=== PATIENT | male | born 1935 | race Caucasian/White ===

== ENCOUNTER 2017-06-03 14:51 | Inpatient (IN) | payer MEDICARE, OTHER ==
[~2017-06-03] VITALS: Ht 172.7 cm; Wt 95.0 kg
[~2017-06-03 14:51] MED LIST: ACET650T85 PO; ALBU8.5H3 IH; ASPI-650 PO; ATOR10TA65; DOCU-144 PO; DONE10TA60 PO; FOLI-49 PO; MEMA10TA16 PO; METAM PO; MOM; NITR4.1S2 TL; RISP0.253 PO; TRAV4OP25 BOTH EYES
--- NOTE | 2017-06-03 15:07 | ERA ---
ER Documentation Chief Complaint Date/Time DATE: 06/03/17 TIME: 15:07 Chief Complaint HPI History is limited due to the patient's cognitive impairment 81-year-old male history of hypertension, Alzheimer's disease, dementia, ASHD, hyperlipidemia, unspecified psychosis and gastritis sent to the ED from [facility] for evaluation of coffee-ground emesis and hypotension. History is obtained primarily from transferring paramedics and custodial documentation. Patient with a one-day history of coffee ground emesis. When paramedics arrived blood pressure was in the 70s systolic. As per prior records patient was admitted at [facility] [place] in April 2017 for similar complaints. An EGD at that time revealed GERD, grade C distal esophageal ulcers and a large hiatal hernia. No reported hematochezia or melanotic stools. No chest pain, palpitations or shortness of breath. Afebrile. History is limited due to the patient's cognitive impairment and clinical condition. ROS Limited except as per history of present illness due to the patient's cognitive impairment and clinical condition. Medications Home Meds Reported Medications Travoprost* (Travatan*) 1 Drop Drops, 1 DROP BOTH EYES HS 07/29/13 Risperidone* (Risperidone*) 0.25 Mg Tablet, 0.25 MG PO HS 07/29/13 Atorvastatin Calcium (Atorvastatin Calcium) 10 Mg Tab, MG HS 07/29/13 Albuterol Sulfate* (Proair HFA*) 8.5 Gm Hfa.aer.ad, 8.5 GM IH Q4 Y 07/29/13 Psyllium* (Metamucil*) 1 Pkt Susp, 1 PKT PO BID 07/29/13 [Mom] No Conflict Check, 30 ML Y 07/29/13 Folic Acid* (Folic Acid*) 1 Mg Tablet, 1 MG PO 07/29/13 Donepezil* (Aricept* ODT) 10 Mg/Udtablet Tab.rapdis, 10 MG PO HS 07/29/13 Docusate Sodium* (Colace*) 100 Mg Capsule, 100 MG PO BID 07/29/13 Memantine* (Namenda*) 10 Mg Tablet, 10 MG PO BID 07/29/13 Nitroglycerin* (Nitrolingual* [place]) 4.1 Gm [place], 0.4 MG TL Y 07/29/13 Acetaminophen (Tylenol 8 Hour) 650 Mg Tablet.sa, 650 MG PO Y 11/07/11 Aspirin (Aspirin) 81 Mg Tablet, 81 MG PO DAILY 11/07/11 Allergies Allergies: Coded Allergies: No Known Allergies (Verified Allergy, Unknown, 06/04/17) PMhx/Soc Reviewed in chart. As per HPI. History of Surgery: Yes (LEFT EYE CATRACT ) Anesthesia Reaction: No Hx Neurological Disorder: Yes Hx Respiratory Disorders: Yes Hx Cardiac Disorders: Yes (HTN,CARDIAC DYSRHTHEMIA) Hx Psychiatric Problems: Yes (SCHIZOPHRENIA,DEMENTIA) Hx Miscellaneous Medical Probl: No Hx Alcohol Use: No Hx Substance Use: No Hx Tobacco Use: No FmHx Unknown Physical Exam Vitals Vital Signs Date Time Temp Pulse Resp B/P Pulse Ox O2 Delivery O2 Flow Rate FiO2 06/03/17 20:30 98 22 75/54 95 Nasal Cannula 2.0 06/03/17 20:00 94 23 167/140 100 Nasal Cannula 2.0 06/03/17 19:00 95 17 168/142 100 Nasal Cannula 2.0 06/03/17 18:51 87 22 100 Nasal Cannula 2.0 06/03/17 17:21 108 20 153/130 98 Nasal Cannula 2.0 06/03/17 15:29 Nasal Cannula 2 06/03/17 15:10 99.9 114 26 170/150 97 Physical Exam Const: Alert, responds to his name. Head: Atraumatic Eyes: Normal Conjunctiva ENT: Normal External Ears, Nose and Mouth. Mucous membranes dry Neck: Full range of motion. Nontender. Resp: Breath sounds equal and clear to auscultation bilaterally Cardio: Tachycardic, irregular rate and rhythm, no murmurs Abd: Soft, obese, distended, diffusely tender. No rebound Skin: No petechiae or rashes Back: No midline or flank tenderness Ext: No cyanosis, or edema Neur: Awake and alert. Oriented tpo person. No facial droop. Moves all extremities with 5/5 strength. Result Diagram: 06/06/170 06/06/17 0400 Results 24 hrs Laboratory Tests Test 06/03/17 15:12 06/03/17 17:10 06/03/17 18:35 06/03/17 19:00 White Blood Count 11.510^3/ul Red Blood Count 4.6310^6/ul Hemoglobin 12.7g/dl Hematocrit 38.0% Mean Corpuscular Volume 82.1fl Mean Corpuscular Hemoglobin 27.4pg Mean Corpuscular Hemoglobin Concent 33.4g/dl Red Cell Distribution Width 17.9% Platelet Count 47192^3/UL Mean Platelet Volume 11.4fl Neutrophils % % Segmented Neutrophils % (Manual) 61% Band Neutrophils % (Manual) 13% Lymphocytes % % Lymphocytes % (Manual) 10% Monocytes % % Monocytes % (Manual) 16% Eosinophils % % Basophils % % Nucleated Red Blood Cells % 1% Neutrophils # 10^3/ul Neutrophils # (Manual) 7.210^3/ul Band Neutrophils # 1.410^3/ul Absolute Lymphocytes (Manual) 1.110^3/ul Lymphocytes # 1.210^3/ul Monocytes # 1.810^3/ul Absolute Monocytes (Manual) 1.810^3/ul Eosinophils # 10^3/ul Basophils # 10^3/ul Nucleated Red Blood Cells # 10^3/ul Prothrombin Time 15.7Sec Prothrombin Time Ratio 1.2 INR International Normalized Ratio 1.24 Activated Partial Thromboplast Time 33.8Sec Sodium Level 138mmol/L 138mmol/L Potassium Level 2.8mmol/L 3.0mmol/L Chloride Level 101mmol/L 107mmol/L Carbon Dioxide Level 19mmol/L 15mmol/L Anion Gap 21 19 Blood Urea Nitrogen 94mg/dl 94mg/dl Creatinine 4.04mg/dl 4.03mg/dl Glucose Level 127mg/dl 103mg/dl Lactic Acid Level 2.8mmol/L 4.0mmol/L Calcium Level 8.9mg/dl 7.7mg/dl Magnesium Level 2.5mg/dl Total Bilirubin 0.4mg/dl Direct Bilirubin 0.00mg/dl Indirect Bilirubin 0.4mg/dl Aspartate Amino Transf (AST/SGOT) 35IU/L Alanine Aminotransferase (ALT/SGPT) 32IU/L Alkaline Phosphatase 83IU/L Troponin I 1.410ng/ml Total Protein 7.4g/dl Albumin 3.9g/dl Globulin 3.50g/dl Albumin/Globulin Ratio 1.11 Lipase 96U/L Urine Color CARLOS MANUEL Urine Clarity CLOUDY Urine pH 5.0 Urine Specific [place] 1.023 Urine Ketones NEGATIVEmg/dL Urine Nitrite NEGATIVEmg/dL Urine Bilirubin NEGATIVEmg/dL Urine Urobilinogen 1+mg/dL Urine Leukocyte Esterase NEGATIVELeu/ul Urine Microscopic RBC 0/HPF Urine Microscopic WBC 1/HPF Urine Hemoglobin NEGATIVEmg/dL Urine Glucose NEGATIVEmg/dL Urine Total Protein 1+mg/dl Current Medications Medications (Trade) Dose Ordered Sig/Radha Route PRN Reason Start Time Stop Time Status Last Admin Dose Admin Pantoprazole (Protonix Iv) 40 mg ONCE STAT IV 06/03/17 15:08 06/03/17 15:11 DC 06/03/17 15:52 Sodium Chloride 2950 ml 2,950 ml BOLUS OVER 2 HOURS STAT IV* 06/03/17 16:12 06/03/17 16:13 DC 06/03/17 17:20 Piperacillin Sod/ Tazobactam Sod 100 ml @ 200 mls/hr ONCE STAT IVPB 06/03/17 16:15 06/03/17 16:44 DC 06/03/17 17:20 Potassium Chloride (KCl 10 MEQ/50 ML SW) 50 ml @ 50 mls/hr ONCE ONCE IVPB 06/03/17 16:30 06/03/17 17:29 DC 06/03/17 17:44 Ondansetron HCl (Zofran Inj) 4 mg ONCE STAT IV 06/03/17 17:01 06/03/17 17:02 DC 06/03/17 17:20 EKG: TIME: 14: 57. Sinus tachycardia with frequent PVCs. LVH with repolarization abnormality. Left axis deviation. No acute ST segment elevation or depression. EP Interpretation: Abnormal EKG. IMAGING: PROCEDURE: Chest x-ray CLINICAL INDICATION: Shortness of breath TECHNIQUE: Chest single view COMPARISON: None FINDINGS: There is mild cardiomegaly and atherosclerotic aortic calcification. Mild chronic-appearing interstitial edema is noted. No confluent pneumonias identified. Costophrenic angles sharp. IMPRESSION: 1. Cardiomegaly with chronic-appearing central venous congestion. 2. Atherosclerotic aortic calcification RPTAT: HH .Johnson Joe MD, MD Date Time Electronically viewed and signed by .Johnson Joe MD, MD on 06/03/2017 15:35 .W/ PROCEDURE: CT ABDOMEN AND PELVIS WITHOUT CONTRAST CLINICAL INDICATION: 81 years of age, male . Vomiting and abdominal pain. TECHNIQUE: CT of the abdomen and pelvis was performed without intravenous contrast. Oral contrast was not administered prior to the examination. Coronal and sagittal reformatted images were obtained from the axial source images. Images were reviewed on a high-resolution PACS workstation. Dose information: Based on a 32 cm phantom, the estimated radiation dose ( CTDIvol mGy) for each series in this exam is 22. The estimated cumulative dose ( DLP mGy-cm) is 1448. One or more of the following dose reduction techniques were used: - Automated exposure control. - Adjustment of the mA and/or kV according to patient size. - Use of iterative reconstruction technique. COMPARISON: None available. FINDINGS: In the absence of intravenous contrast, the study constitutes a limited assessment of the solid organs, bowel and vessels. LUNG BASES: Bilateral dependent atelectasis. Multivessel coronary artery calcification and calcification of the aortic valve. ABDOMEN/PELVIS: Liver: Normal noncontrast appearance. Gallbladder: Gallbladder is not visualized and may be surgically absent. There is a 0.4 cm calculus in the region of the cystic duct in keeping with a stump calculus. Bile ducts: No intrahepatic or extrahepatic biliary duct dilatation. Spleen: Calcified granulomas. Negative for splenomegaly. Pancreas: Normal noncontrast appearance. Adrenal glands: Normal noncontrast appearance. Kidneys and ureters: Right renal parenchymal cyst. Kidneys are somewhat small. Negative for hydronephrosis. Aorta and IVC: Atherosclerosis aorta and iliac vessels. There is an infrarenal abdominal aortic aneurysm measuring up to 3 cm. Lymph nodes: Normal noncontrast appearance. Gastrointestinal tract: Colon is distended with liquid stool. Cecum measures 7.1 cm and distal descending colon measures 6.6 cm. The wall of the colon is thin. There is suspected pneumatosis in the wall of the ascending colon (3/105) . There is sigmoid colon diverticulosis without diverticulitis concerning for ischemia. Small bowel loops and stomach are decompressed. There is fluid distension of the distal esophagus. Appendix: Normal Bladder: Normal noncontrast appearance. Pelvic Organs: Prostate gland and seminal vesicles are unremarkable. Peritoneal cavity: No free fluid or free intraperitoneal air. Abdominal wall: Normal noncontrast appearance. BONES: Musculoskeletal: Osteopenia. 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 Partial collapse L1 vertebra appears chronic. No suspicious bone lesions. IMPRESSION: 1. Colon is distended with liquid stool and there is suspected pneumatosis of the ascending colon. This is concerning for ischemic colitis. Recommend correlation with serum lactate. 2. Stomach and small bowel are decompressed. Negative for evidence of mechanical bowel obstruction. Fluid distension of the esophagus may be due to vomiting or reflux. 3. Gallbladder is not visualized and is presumed surgically absent. There is a small calculus in the cystic duct stump without inflammation. 4. Extensive atherosclerosis with multivessel coronary artery calcification. Infrarenal abdominal aortic aneurysm measures 3 cm. Critical results concern for ischemic colitis were discussed with Dr. Chua by Dr. Florecita Hamlin on June 03, 2017 at 7:10 PM. RPTAT: HCTS Physician Corin Date Time Electronically viewed and signed by Physician Corin on 06/03/2017 19: 13 CS/ Procedures/MDM DOCUMENTS REVIEWED: ED nurse, custodial records, prior hospital records including echocardiogram 07/05 which shows moderate aortic stenosis with normal ejection fraction. MEDICAL DECISION MAKIN-year-old male history of hypertension, Alzheimer's disease, dementia, ASHD, hyperlipidemia, unspecified psychosis and gastritis sent to the ED from [facility] for evaluation of coffee- ground emesis and hypotension. Patient with multiple criteria for systemic inflammatory response syndrome and septic shock due to intra-abdominal source. CT reveals findings consistent with ischemic colitis. A decision regarding emergent surgical intervention versus anticoagulation is deferred to the consulting surgeon Dr. Rogers. Elevated troponin without acute ischemic EKG changes consistent with NSTEMI although spurious elevation due to acute renal failure is also considered. Patient's primary care physician, Dr. Dallin Smith, has inquired regarding transfer however the patient is in critical condition and not stable for transfer at this time. Patient's infectious, gastrointestinal and cardiovascular symptoms have not stabilized and the patient is at risk of rapid decompensation. Admit to ICU for surgical evaluation, careful hydration, antibiotic therapy, infectious source control , further evaluation and management. Severe Sepsis criteria: Infectious source: Intra-abdominal End organ damage indicated by: Lactate > 2.0 mmol/L Warning Analyst > 2.0 Sepsis Management: Time of recognition of severe sepsis/septic shock: 16:00 Within 3 hours of recognition: Blood cultures x 2 before broad-spectrum antibiotics: Yes 30 ml/kg NS bolus Completed Initial lactate 2.9 Repeat lactate 4.0 Septic Shock Assessment: Any lactic acid > 4.0 Yes Persistent hypotension (SBP < 90 or 40 mmHg drop, MAP < 65) despite 30 mL/kg IV fluid bolus: No Critical Care Time: 40 minutes Treatments/Evaluations: Close monitoring and treatment of unstable vital signs, cardiorespiratory, and neurologic status, while maintaining tight balance of fluid, respiratory, and cardiac interventions. This includes the administration of emergency fluid management while maintaining close respiratory support as well as the provision of immediate and broad-spectrum antibiotic therapy, while performing a simultaneous assessment for possible sources in order to direct targeted therapy. This time includes discussing the case with the patient and the patient's family. This time also includes the consideration for invasive and chemical support to prevent cardiopulmonary collapse. This time does not include all procedures stated elsewhere in this record. This time also includes reviewing old records, labs and radiological studies. This time includes examining and re-examining the patient. Additionally, this time also includes arranging care with admitting and consulting physicians. CALLS/CONSULTS: Time 19:18 Dr. Seo, will admit to ICU admission. CALLS/CONSULTS: Time 19:20 Dr. Zhang. Evaluating patient for emergent surgical intervention. PATIENT CARE TRANSITIONED: Time: 19:20, Dr. Seo. Departure Diagnosis: Primary Impression: Ischemic colitis Additional Impressions: Septic shock NSTEMI (non-ST elevated myocardial infarction) Acute renal failure Qualified Code: N17.9 - Acute renal failure, unspecified acute renal failure type Condition: Critical LOUIE CHUA MD Jun 03, 2017 15:07 LOUIE CHUA MD Jun 03, 2017 15:07 LOUIE CHUA MD Jun 03, 2017 15:07 LOUIE CHUA MD Jun 03, 2017 15:07
[2017-06-03] MEDS ORDERED: PANTOPRAZOLE 40 MG INJ IV STA (15:08)
[2017-06-03 15:30] LABS: ABNORMAL IP MESSAGE 1; HEMOGLOBIN 12.7 g/dl (14.0-18.0); MEAN CORPUSCULAR HEMOGLOBIN 27.4 pg (29.0-33.0); MEAN CORPUSCULAR HGB CONC 33.4 g/dl (32.0-37.0); MEAN CORPUSCULAR VOLUME 82.1 fl (82.0-101.0); MEAN PLATELET VOLUME 11.4 fl (7.4-10.4); PLATELET COUNT 223 10^3/UL (140-415); POSITIVE DIFF @See below; RED BLOOD COUNT 4.63 10^6/ul (4.70-6.10); RED CELL DISTRIBUTION WIDTH 17.9 % (11.5-14.5); WHITE BLOOD COUNT 11.5 10^3/ul (4.8-10.8)
--- NOTE | 2017-06-03 15:36 | RADRPT ---
PROCEDURE: Chest x-ray CLINICAL INDICATION: Shortness of breath TECHNIQUE: Chest single view COMPARISON: None FINDINGS: There is mild cardiomegaly and atherosclerotic aortic calcification. Mild chronic-appearing intersti tial edema is noted. No confluent pneumonias identified. Costophrenic angles sharp. IMPRESSION: 1. Cardiomegaly with chronic-appearing central venous congestion. 2. Atherosclerotic aortic calcification RPTAT: HH .Johnson Joe MD, MD Date Time Electronically viewed and signed by .Johnson Joe MD, MD on 06/03/2017 15:35 .W/
[2017-06-03 15:46] LABS: INR 1.24; PROTIME 15.7 Sec (12.2-14.2); PT RATIO 1.2
[2017-06-03 15:47] LABS: PARTIAL THROMBOPLASTIN TIME 33.8 Sec (25.0-35.0)
[2017-06-03 15:53] LABS: ALBUMIN 3.9 g/dl (3.3-4.9); ALBUMIN/GLOBULIN RATIO 1.11; BILIRUBIN,INDIRECT 0.4 mg/dl (0-1.1); BILIRUBIN,TOTAL 0.4 mg/dl (0.2-1.3); BURR CELLS 1+; CALCIUM 8.9 mg/dl (8.4-10.2); CREATININE 4.04 mg/dl (0.61-1.24); ERYTHROBLAST% (NRBC) (M) 1 % (0-0); LYMPHOCYTES # 1.2 10^3/ul (0.8-2.9); MAGNESIUM 2.5 mg/dl (1.7-2.5); MONOCYTE # 1.8 10^3/ul (0.3-0.9); MONOCYTES % (M) 16 % (0-11); TOTAL PROTEIN 7.4 g/dl (6.1-8.1)
[2017-06-03 16:06] LABS: POTASSIUM 2.8 mmol/L (3.5-5.1)
[2017-06-03 16:12] LABS: TROPONIN-I 1.41 ng/ml (0.00-0.12)
[2017-06-03] MEDS ORDERED: SODIUM CHLORIDE 0.9% 1L BAG IV* STA (16:12)
[2017-06-03] MEDS ORDERED: PIPER-TAZO 3.375 GM IV (PMX) 100 ML IVPB STA (16:15)
[2017-06-03] MEDS ORDERED: POTASSIUM CHLORIDE 50 ML IVPB ONE (16:30)
[2017-06-03] MEDS ORDERED: ONDANSETRON 4 MG INJ IV STA (17:01)
[2017-06-03 17:35] LABS: ADD UMIC YES; UR ASCORBIC ACID 40 mg/dL (NEGATIVE); UR BILIRUBIN (Dip) NEGATIVE (NEGATIVE); UR BLOOD (Dip) NEGATIVE (NEGATIVE); UR CLARITY CLOUDY (CLEAR); UR COLOR AMBER (YELLOW); UR GLUCOSE (Dip) NEGATIVE (NEGATIVE); UR KETONES (Dip) NEGATIVE (NEGATIVE); UR LEUKOCYTE ESTERASE (Dip) NEGATIVE Leu/ul (NEGATIVE); UR NITRITE (Dip) NEGATIVE (NEGATIVE); UR RBC 0 /HPF (0-5); UR SPECIFIC GRAVITY (Dip) 1.023 (1.003-1.030); UR TOTAL PROTEIN (Dip) 1+ mg/dl (NEGATIVE); UR UROBILINOGEN (Dip) 1+ mg/dL (NEGATIVE)
--- NOTE | 2017-06-03 19:14 | RADRPT ---
PROCEDURE: CT ABDOMEN AND PELVIS WITHOUT CONTRAST CLINICAL INDICATION: 81 years of age, male . Vomiting and abdominal pain. TECHNIQUE: CT of the abdomen and pelvis was performed without intravenous contrast. Oral contrast wa s not administered prior to the examination. Coronal and sagittal reformatted images were obtained from the axial source images. Images were revi ewed on a high-resolution PACS workstation. Dose information: Based on a 32 cm phantom, the estimated radiation dose (CTDIvol mGy) for each seri es in this exam is 22. The estimated cumulative dose (DLP mGy-cm) is 1448. One or more of the following dose reduction techniques were used: - Automated exposure control. - Adjustment of the mA and/or kV according to patient size. - Use of iterative reconstruction technique. COMPARISON: None available. FINDINGS: In the absence of intravenous contrast, the study constitutes a limited assessment of the solid orga ns, bowel and vessels. LUNG BASES: Bilateral dependent atelectasis. Multivessel coronary artery calcification and calcifica tion of the aortic valve. ABDOMEN/PELVIS: Liver: Normal noncontrast appearance. Gallbladder: Gallbladder is not visualized and may be surgically absent. There is a 0.4 cm calculus in the region of the cystic duct in keeping with a stump calculus. Bile ducts: No intrahepatic or extrahepatic biliary duct dilatation. Spleen: Calcified granulomas. Negative for splenomegaly. Pancreas: Normal noncontrast appearance. Adrenal glands: Normal noncontrast appearance. Kidneys and ureters: Right renal parenchymal cyst. Kidneys are somewhat small. Negative for hydronep hrosis. Aorta and IVC: Atherosclerosis aorta and iliac vessels. There is an infrarenal abdominal aortic aneu rysm measuring up to 3 cm. Lymph nodes: Normal noncontrast appearance. Gastrointestinal tract: Colon is distended with liquid stool. Cecum measures 7.1 cm and distal desce nding colon measures 6.6 cm. The wall of the colon is thin. There is suspected pneumatosis in the wa ll of the ascending colon (3/105). There is sigmoid colon diverticulosis without diverticulitis conc erning for ischemia. Small bowel loops and stomach are decompressed. There is fluid distension of th e distal esophagus. Appendix: Normal Bladder: Normal noncontrast appearance. Pelvic Organs: Prostate gland and seminal vesicles are unremarkable. Peritoneal cavity: No free fluid or free intraperitoneal air. Abdominal wall: Normal noncontrast appearance. BONES: Musculoskeletal: Osteopenia. 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 Partial collapse L1 vertebra ap pears chronic. No suspicious bone lesions. IMPRESSION: 1. Colon is distended with liquid stool and there is suspected pneumatosis of the ascending colon. This is concerning for ischemic colitis. Recommend correlation with serum lactate. 2. Stomach and small bowel are decompressed. Negative for evidence of mechanical bowel obstruction. Fluid distension of the esophagus may be due to vomiting or reflux. 3. Gallbladder is not visualized and is presumed surgically absent. There is a small calculus in the cystic duct stump without inflammation. 4. Extensive atherosclerosis with multivessel coronary artery calcification. Infrarenal abdominal ao rtic aneurysm measures 3 cm. Critical results concern for ischemic colitis were discussed with Dr. Almaraz by Dr. Florecita driscoll June 03, 2017 at 7:10 PM. RPTAT: HCTS Physician Corin Date Time Electronically viewed and signed by Physician Corin on 06/03/2017 19:13 CS/
[2017-06-03 19:46] LABS: CALCIUM 7.7 mg/dl (8.4-10.2); CREATININE 4.03 mg/dl (0.61-1.24)
[2017-06-03] MEDS ORDERED: BUPIVACAINE 0.5%/EPI (SDV) 30 ML INJ ONE (20:43)
[2017-06-03] MEDS ORDERED: LIDOCAINE 1% (MPF) 30 ML INJ ONE (20:43)
[2017-06-03] MEDS ORDERED: FENTAnyl 50 MCG/ML VIAL ONE (20:45)
[2017-06-03] MEDS ORDERED: ROCURONIUM 50 MG INJ ONE (20:45)
[2017-06-03] MEDS ORDERED: PROPOFOL 0 ML ONE (20:45)
[2017-06-03] MEDS ORDERED: SUCCINYLCHOLINE CHLORIDE 100 MG/5 ML SYG IV ONE (20:45)
[2017-06-03] MEDS ORDERED: SOD CHLORIDE 0.9% 2,950 ML IV ONE (21:00)
[2017-06-03] MEDS ORDERED: NORepinephrine 8MG/250 ML (PMX 250 ML IV SCH ×2 (21:00→23:00)
--- NOTE | 2017-06-03 21:10 | CONS ---
Date/Time of Note Date/Time of Note DATE: 06/03/17 TIME: 20:49 Assessment/Plan Assessment/Plan Chief Complaint/Hosp Course 1. Lactic acidosis, bandemia, CT with ischemic colitis, with Sepsis. During the course of this dictation patient's blood pressure has dropped to 60s systolic and is in Shock currently. Patient has a conservator however they are not unreachable even through the emergency after hour line. I have discussed patient's care with emergency room physician and patient's outpatient medical doctor, Dallin Smith. -IV antibiotics -Aggressive IV fluids -Anticoagulation -We will need OR for exploration and resection however patient is currently unstable and per my discussions with anesthesia we do not believe he will be able to tolerate anesthetic > will need ICU admission and aggressive resuscitation 2. Significant atherosclerosis and coronary artery disease -Patient high risk for any surgery -Cardiac optimization 3. Acute renal failure secondary to above -Aggressive and judicious fluid management -Renal consult -Try to avoid nephrotoxic agents if possible 4. Coffee-ground emesis with possible upper GI bleed -Close monitoring and transfuse as needed -PPI 5. Anemia with possible blood loss -As above 6. Dysrhythmia history -Optimize lites -Rate control -Anticoagulation 7. Acute hypokalemia -Correct aggressively 8. Obesity with BMI 32 9. Alzheimer's dementia, schizophrenia (paranoid) -Medical and psychiatric optimization -Patient has a conservator but no family. Thank you very much for consulting me in this patient's care, Problems: Consultation Date/Type/Reason Admit Date/Time Date of Consultation: Jun 03, 2017 Type of Consultation: General surgical Reason for Consultation Ischemic colitis Bandemia Lactic acidosis BMI 32 Referring Provider: LOUIE CHUA MD Hx of Present Illness Mark He is an 81yo male with significant comorbidities who has been in and out of hospitals for the past few weeks with same issues was sent to the ED from [facility] for evaluation of coffee-ground emesis and hypotension. History is obtained primarily from transferring staff and chart. These symptoms have been going on as of stated for a few weeks however recurred for the past day. When paramedics arrived blood pressure was in the 70s systolic. As per prior records patient was admitted at [facility] [place] in April 2017 for similar complaints. An EGD at that time revealed GERD, grade C distal esophageal ulcers and a large hiatal hernia. There is no current fevers or chills. No cough. No seizure. No noted blood per mouth or rectum. Patient denies pain. No acute neurologic changes however patient confused. No skin color urine color change. No eyeball color change. Emergency room he is found to be tachycardic with bandemia lactic acidosis that is worsening. He is in renal failure. CT scan shows ischemic colitis. Surgical consult is obtained further evaluation and treatment. 12 point review of system are negative except as per history of present illness. Past Medical History Cataract HTN Cardiac dysrhythmia Significant atherosclerosis Schizophrenia Significant dementia Obesity with BMI 32 Ischemic colitis, acute Lactic acidosis, acute Bandemia, acute Small calculus in the cystic duct stump without inflammation. Coronary artery calcification Infrarenal abdominal aortic aneurysm, 3 cm. Alzheimer's disease ASHD Hyperlipidemia Gastritis Coffee-ground emesis GERD Grade C distal esophageal ulcers Large hiatal hernia Anemia Hypokalemia, acute Acute renal failure Past Surgical History Lap christen Family History Significant Family History: no pertinent family hx Social History No current alcohol use or tobacco Smoking Status: Unknown if ever smoked Exam/Review of Systems Vital Signs Vitals Vital Signs Date Time Temp Pulse Resp B/P Pulse Ox O2 Delivery O2 Flow Rate FiO2 06/03/17 18:51 87 22 100 Nasal Cannula 2.0 06/03/17 17:21 153/130 06/03/17 15:10 99.9 Exam Constitutional: obese, other (Awake), No oriented (To location and situation date. Only notices name) Psych: confusion, nl mood/affect Head: atraumatic, normocephalic Eyes: PERRL, nl conjunctiva, No icteric ENMT: nl external ears & nose, No mucosa pink and moist Neck: jvd, non-tender, supple Respiratory: normal air movement, No congested cough, No labored breathing Cardiovascular: edema, No regular rate and rhythm Gastrointestinal: distended, soft, tender, No rebound or guarding Musculoskeletal: No joint tenderness, No nl extremities to inspection, No nl gait and stance Extremities: No calf tenderness, No cyanosis Neurological: No nl mental status, No nl strength Skin: No diaphoresis, No rash or lesions Lymph: nl lymph nodes, nontender Results Result Diagram: 06/03/17 1512 06/03/17 1835 Results 24 hrs Laboratory Tests Test 06/03/17 15:12 06/03/17 17:10 06/03/17 18:35 06/03/17 19:00 White Blood Count 11.5 H Red Blood Count 4.63 L Hemoglobin 12.7 L Hematocrit 38.0 L Mean Corpuscular Volume 82.1 Mean Corpuscular Hemoglobin 27.4 L Mean Corpuscular Hemoglobin Concent 33.4 Red Cell Distribution Width 17.9 H Platelet Count 223 Mean Platelet Volume 11.4 H Neutrophils % Segmented Neutrophils % (Manual) 61 Band Neutrophils % (Manual) 13 H Lymphocytes % Lymphocytes % (Manual) 10 L Monocytes % Monocytes % (Manual) 16 H Eosinophils % Basophils % Nucleated Red Blood Cells % 1 H Neutrophils # Neutrophils # (Manual) 7.2 Band Neutrophils # 1.4 H Absolute Lymphocytes (Manual) 1.1 Lymphocytes # 1.2 Monocytes # 1.8 H Absolute Monocytes (Manual) 1.8 H Eosinophils # Basophils # Nucleated Red Blood Cells # Prothrombin Time 15.7 H Prothrombin Time Ratio 1.2 INR International Normalized Ratio 1.24 Activated Partial Thromboplast Time 33.8 Sodium Level 138 138 Potassium Level 2.8 *L 3.0 L Chloride Level 101 107 Carbon Dioxide Level 19 L 15 L Anion Gap 21 H 19 H Blood Urea Nitrogen 94 H 94 H Creatinine 4.04 H 4.03 H Glucose Level 127 103 Lactic Acid Level 2.8 *H 4.0 *H Calcium Level 8.9 7.7 L Magnesium Level 2.5 Total Bilirubin 0.4 Direct Bilirubin 0.00 Indirect Bilirubin 0.4 Aspartate Amino Transf (AST/SGOT) 35 Alanine Aminotransferase (ALT/SGPT) 32 Alkaline Phosphatase 83 Troponin I 1.410 *H Total Protein 7.4 Albumin 3.9 Globulin 3.50 H Albumin/Globulin Ratio 1.11 Lipase 96 Urine Color CARLOS MANUEL Urine Clarity CLOUDY A Urine pH 5.0 Urine Specific [place] 1.023 Urine Ketones NEGATIVE Urine Nitrite NEGATIVE Urine Bilirubin NEGATIVE Urine Urobilinogen 1+ H Urine Leukocyte Esterase NEGATIVE Urine Microscopic RBC 0 Urine Microscopic WBC 1 Urine Hemoglobin NEGATIVE Urine Glucose NEGATIVE Urine Total Protein 1+ H Imaging Free Text/Dictation CT abdomen pelvis: 1. Colon is distended with liquid stool and there is suspected pneumatosis of the ascending colon. This is concerning for ischemic colitis. Recommend correlation with serum lactate. 2. Stomach and small bowel are decompressed. Negative for evidence of mechanical bowel obstruction. Fluid distension of the esophagus may be due to vomiting or reflux. 3. Gallbladder is not visualized and is presumed surgically absent. There is a small calculus in the cystic duct stump without inflammation. 4. Extensive atherosclerosis with multivessel coronary artery calcification. Infrarenal abdominal aortic aneurysm measures 3 cm. DAVY MARTINES MD Jun 03, 2017 21:00 vomiting or reflux. 3. Gallbladder is not visualized and is presumed surgically absent. There is a small calculus in the cystic duct stump without inflammation. 4. Extensive atherosclerosis with multivessel coronary artery calcification. Infrarenal abdominal aortic aneurysm measures 3 cm. DAVY MARTINES MD Jun 03, 2017 21:00
--- NOTE | 2017-06-03 22:13 | OPR ---
Date/Time of Note Date/Time of Note DATE: 06/03/17 TIME: 22:06 Operative Report Procedure Date: Jun 03, 2017 Preoperative Diagnosis 1. Sepsis with shock, systolic of 60s 2. Possible ischemic colitis 3. Lactic acidosis Postoperative Diagnosis 1. Sepsis with shock, systolic of 60s 2. Possible ischemic colitis 3. Lactic acidosis Operation/Procedure Performed 1. Right internal jugular central line insertion 2. Ultrasound guidance 3. Ultrasound interpretation 4. Local [place], [id number] Surgeon Davy Martines MD Manifest Clerk None Anesthesia Type: other (Local) Estimated Blood Loss: none Transfusion none Specimen None Grafts/Implants Central line Complications none Pt Condition Post Procedure: critical Disposition: other (ER) Indications 81-year-old male with significant comorbidities who is in septic shock with bandemia, lactic acidosis, possible ischemic bowel, with systolic in the 60s. Patient was going to go for emergency abdominal exploration however he is too unstable to proceed. ER physician and myself and anesthesia have elected to place a central line to give him fluids more aggressively and be able to control him. He would need optimization prior to reconsideration for surgery. I have attempted to reach out to the patient's conservator however they are not available and I have left a message for them. I tried to contact her emergency line that the place on their answering service and nobody picks up the emergency line. I tried to contact him multiple times. Patient is currently unstable and in shock in an emergent situation. Procedure Description Ultrasound findings: Internal jugular was anterior and lateral to the carotid and compressible. Wire and needle were placed under ultrasound guidance into the IJ and confirmed in 2 planes. Procedure: Patient was placed in Trendelenburg on his bed right neck was prepped and draped sterilely timeout was performed. Using ultrasound the right neck was investigated with the IJ anterolateral to the carotid. Local anesthetic was injected at the site. Using 18-gauge needle the IJ was accessed and a wire was placed which was confirmed in 2 planes. Using Seldinger technique the line was placed to [address] in [address]. All 3 ports easily draw back dark nonpulsatile blood and flush easily. Dressing was applied. DAVY MARTINES MD Jun 03, 2017 22:13
[2017-06-03] MEDS ORDERED: ONDANSETRON 4 MG INJ IV PRN (23:00)
[2017-06-03] MEDS ORDERED: HYDROmorphONE 0.5 MG/0.5 ML SYG IV PRN (23:00)
[2017-06-03] MEDS ORDERED: morphine 4 MG/ML VIAL IV PRN (23:00)
[2017-06-03 23:20] VITALS: PULSE 122
[2017-06-03 23:30] VITALS: BP 84/56; PULSE 138; RESP 27
[2017-06-03] MEDS: DEXTROSE 5%-0.45% NACL 1,000 ML IV SCH (23:31)
[2017-06-03] MEDS: PIPER-TAZO 2.25 GM (PMX) 50 ML IVPB SCH (23:33)
[2017-06-03 23:45] VITALS: BP 79/69; PULSE 127; RESP 24
[2017-06-04] VITALS (91 sets, daily range): BP systolic 63–166; BP diastolic 34–135; PULSE 78–140; RESP 15–43; Ht 172.7 cm; Wt 95.0 kg
[2017-06-04] MEDS ORDERED: PHENYLephrine 20MG IN 250 ML 250 ML ONE (01:20)
[2017-06-04] MEDS ORDERED: PHENYLephrine 40 MG in DEXTROSE 5% 496 ML IV SCH (01:30)
[2017-06-04 02:33] LABS: CK-MB 12.9 ng/ml (0.0-2.4)
[2017-06-04 02:36] LABS: TROPONIN-I 0.867 ng/ml (0.00-0.12)
[2017-06-04] MEDS: PIPER-TAZO 2.25 GM (PMX) 50 ML IVPB SCH ×3 (05:10→22:25)
[2017-06-04 05:46] LABS: ABNORMAL IP MESSAGE 1; HEMATOCRIT 34.3 % (42.0-52.0); LYMPHOCYTES # 0.8 10^3/ul (0.8-2.9); LYMPHOCYTES % 6.4 % (15.0-51.0); MEAN CORPUSCULAR HEMOGLOBIN 26.7 pg (29.0-33.0); MEAN CORPUSCULAR HGB CONC 32.1 g/dl (32.0-37.0); MEAN CORPUSCULAR VOLUME 83.3 fl (82.0-101.0); MONOCYTE # 2.2 10^3/ul (0.3-0.9); MONOCYTES % 18.1 % (0.0-11.0); NEUTROPHIL # 8.9 10^3/ul (1.6-7.5); NEUTROPHILS % 75.2 % (39.0-77.0); PLATELET COUNT 162 10^3/UL (140-415); POSITIVE DIFF @See below; RED BLOOD COUNT 4.12 10^6/ul (4.70-6.10); RED CELL DISTRIBUTION WIDTH 18.6 % (11.5-14.5); WHITE BLOOD COUNT 11.9 10^3/ul (4.8-10.8)
[2017-06-04] MEDS ORDERED: HEPARIN 1000 UNITS/ML 10 ML INJ IV PRN (06:00)
[2017-06-04] MEDS ORDERED: PANTOPRAZOLE 40 MG INJ IV SCH (06:00)
[2017-06-04 06:05] LABS: ALBUMIN 2.8 g/dl (3.3-4.9); ALBUMIN/GLOBULIN RATIO 0.82; BILIRUBIN,INDIRECT 0.4 mg/dl (0-1.1); BILIRUBIN,TOTAL 0.4 mg/dl (0.2-1.3); CALCIUM 7.4 mg/dl (8.4-10.2); CREATININE 3.19 mg/dl (0.61-1.24); TOTAL PROTEIN 6.2 g/dl (6.1-8.1)
--- NOTE | 2017-06-04 06:05 | HP ---
Date/Time of Note Date/Time of Note DATE: 06/03/17 TIME: 23:30 Assessment/Plan VTE Prophylaxis VTE Prophylaxis Intervention: heparin Lines/Catheters IV [facility]from [facility] Central Line Central line still needed: Yes Urinary Cath still in place: Yes Reason Cath still needed: terminal illness/intractable pain Assessment/Plan Assessment/Plan 1. Septic shock, likely secondary to ischemic colitis -Continue pressure support and IV fluid -Broad-spectrum antibiotic -Follow-up culture results -Treat ischemic colitis with heparin 2. Ischemic colitis -Patient was unstable to go to the OR while he was in the ER. Plan for now is to treat with heparin drip 3. Presumed acute on CKD -Continue treatment of shock -Obtain renal ultrasound and place a nephrology consult -will order urine electrolytes 4. Positive troponin, (trending down) -Trend troponin -2D echo -Cardiology consult -Patient already on heparin drip for ischemic colitis 5. A-fib with RVR -Once stabilizing blood pressure, will start treatment -Continue heparin -2D echo and cardiology consult 6. Severe Alzheimer's dementia -Supportive care 7. Hypokalemia -Replete HPI/ROS Admit Date/Time Admit Date/Time Hx of Present Illness This is an 81-year-old male with a history of Alzheimer's dementia, CAD, hypertension, gastritis, psychosis and dyslipidemia who was sent from a convalescent home for attention and coffee-ground emesis. Patient is not able to give history because he is not fully oriented. For every question that asked , mostly he responds by saying "I am alright". Reportedly he was hospitalized at an outside hospital last month for coffee-ground emesis. At that time EGD showed distal esophageal ulcer, large hiatal hernia and GERD. When patient presents to the ER, initially he was hypotensive with blood pressure in the 170s. During his ER stay however he became more and more hypotensive with a systolic blood pressure as low as 60 despite several IV fluid boluses. There was a plan for the patient to be taken to the OR but given instability, a decision is made to admit the patient to ICU and treat his septic shock and treat ischemic colitis for now with heparin. Admission lab shows WBC of 11.5, potassium 2.8, BUN 94, creatinine 4, bicarb 19 , lactic acid as high as 4, initial troponin 1.4, which has been trending down since. ROS Psychological: confusion, nl mood/affect PMH/Family/Social Social History Smoking Status: Unknown if ever smoked Exam/Review of Systems Vital Signs Vitals Vital Signs Date Time Temp Pulse Resp B/P Pulse Ox O2 Delivery O2 Flow Rate FiO2 06/04/17 04:00 106 06/04/17 03:00 29 92/65 99 Room Air 06/03/17 23:30 99.0 06/03/17 22:25 2.0 Intake and Output 06/03/17 06/03/17 06/04/17 15:00 23:00 07:00 Intake Total 1184.375 ml Output Total 1325 ml Balance -140.625 ml Exam Constitutional: other (No acute distress. He is not oriented.) Psych: confusion Respiratory: clear to auscultation, normal air movement Cardiovascular: irregular rhythm Gastrointestinal: other (There is mild distention. He denied pain however I noted some mild grimaces on deep palpation) Extremities: normal pulses Labs Result Diagram: 06/03/17 1512 06/03/17 6025 Medications Medications Current Medications Dextrose/Sodium Chloride (D5-1/2ns) 1,000 ml @ 125 mls/hr Q8H IV Last administered on 06/03/17 23:31; Admin Dose 125 MLS/HR; Start 06/03/17 at 22: 43 Ondansetron HCl (Zofran Inj) 4 mg Q6H PRN IV NAUSEA AND/OR VOMITING; Start at 23:00 Morphine Sulfate (morphine) 3 mg Q4H PRN IV PAIN LEVEL 7-10; Start 06/03/17 at 23:00 Hydromorphone HCl (Dilaudid) 0.5 mg Q4H PRN IV PAIN LEVEL 7-10; Start at 23:00 Pantoprazole 40 mg 40 mg DAILY@06 IV Last administered on 06/04/17 05:10; Admin Dose 40 MG; Start 06/04/17 at 06:00 Piperacillin Sod/ Tazobactam Sod 50 ml @ 200 mls/hr Q8 IVPB Last administered on 06/04/17 05:10; Admin Dose 200 MLS/HR; Start 06/03/17 at 23:59 Norepinephrine 16 mg/Dextrose 500 ml @ 1.87 mls/hr TITRATE IV ; Start at 03:00 Phenylephrine HCl/ Dextrose (Jc-Syneph/D5W) 500 ml @ 75 mls/hr TITRATE IV Last administered on 06/04/17t 02:33; Admin Dose 37.5 MLS/HR; Start 06/04/17 at 01:30 SHENA JACOB MD Jun 04, 2017 05:51
[2017-06-04 06:26] LABS: CK-MB 15.6 ng/ml (0.0-2.4); TROPONIN-I 0.879 ng/ml (0.00-0.12)
[2017-06-04] MEDS ORDERED: POTASSIUM CHLORIDE 250 ML IVPB SCH (06:30)
[2017-06-04] MEDS ORDERED: POTASSIUM CHLORIDE 50 ML IVPB SCH ×2 (06:30→20:00)
[2017-06-04] MEDS: HEPARIN 25000 UNITS/D5W 250 ML IV SCH (06:37)
[2017-06-04] MEDS ORDERED: POTASSIUM CHLORIDE 0 ML ONE (06:39)
[2017-06-04] MEDS: DEXTROSE 5%-0.45% NACL 1,000 ML IV SCH ×3 (06:57→22:43)
[2017-06-04] MEDS: POTASSIUM CHLORIDE 250 ML IVPB SCH ×3 (07:09→21:06)
--- NOTE | 2017-06-04 07:12 | RADRPT ---
PROCEDURE: XR Chest. CLINICAL INDICATION: Central line placement TECHNIQUE: Single portable view of the chest was obtained. COMPARISON: 06/03/2017 FINDINGS: Right IJ catheter tip over the cavoatrial junction. Stable cardiomediastinal silhouette. Aortic calc ifications. Bilateral perihilar interstitial opacities. Left basilar airspace opacity. Probable left pleural effusion. No evidence of pneumothorax. Degenerative changes of the shoulders. IMPRESSION: 1. Right IJ catheter tip in appropriate position. 2. Left basilar airspace opacity likely combination of pleural effusion with underlying atelectasis or pneumonia. 3. Bilateral perihilar interstitial opacities representing chronic changes, pulmonary edema or infec tion. RPTAT:AAJJ Physician Z[place] Date Time Electronically viewed and signed by Physician Zaire on 06/04/2017 07:12 /
[2017-06-04 09:12] LABS: ABNORMAL IP MESSAGE 1; BASOPHILS % 0.2 % (0.0-2.0); HEMOGLOBIN 11.6 g/dl (14.0-18.0); LYMPHOCYTES # 0.8 10^3/ul (0.8-2.9); LYMPHOCYTES % 6.9 % (15.0-51.0); MEAN CORPUSCULAR HGB CONC 33.1 g/dl (32.0-37.0); MEAN CORPUSCULAR VOLUME 84.5 fl (82.0-101.0); MEAN PLATELET VOLUME 11.1 fl (7.4-10.4); MONOCYTE # 1.8 10^3/ul (0.3-0.9); MONOCYTES % 16.1 % (0.0-11.0); NEUTROPHIL # 8.4 10^3/ul (1.6-7.5); NEUTROPHILS % 76.4 % (39.0-77.0); PLATELET COUNT 184 10^3/UL (140-415); POSITIVE DIFF @See below; RED BLOOD COUNT 4.14 10^6/ul (4.70-6.10); RED CELL DISTRIBUTION WIDTH 18.3 % (11.5-14.5)
--- NOTE | 2017-06-04 09:22 | RADRPT ---
PROCEDURE: Retroperitoneal US. CLINICAL INDICATION: Renal insufficiency TECHNIQUE: Multiple sonographic images of the kidneys and retroperitoneum were obtained. The imag es were reviewed on a PACS workstation. COMPARISON: No prior studies are available for comparison. FINDINGS: The kidneys are normal in size, contour, cortical thickness and cortical echogenicity. The right kidney measures 9.6 cm. The left kidney measures 10.0 cm. There is a 3.7 cm simple cyst in the right kidney. No kidney stones are visualized. There is no evidence for hydronephrosis. The urinary bladder is decompressed by a Mcknight catheter. RPTAT: AA IMPRESSION: No evidence of hydronephrosis. Simple cyst in the right kidney. .Rio Kuhn MD, MD Date Time Electronically viewed and signed by .Rio Kuhn MD, MD on 06/04/2017 09:22 .S/
[2017-06-04 10:46] LABS: CALCIUM 7.4 mg/dl (8.4-10.2); CREATININE 2.59 mg/dl (0.61-1.24)
[2017-06-04 10:57] LABS: POTASSIUM 2.5 mmol/L (3.5-5.1)
--- NOTE | 2017-06-04 11:05 | PN ---
Date/Time of Note Date/Time of Note DATE: 06/04/17 TIME: 10:41 Assessment/Plan Lines/Catheters IV Catheter Type (from [facility]): Central Line Mcknight in Place (from [facility]): Yes Assessment/Plan Chief Complaint/Hosp Course 1. Lactic acidosis, bandemia, CT with ischemic colitis, with Sepsis: hypotensive with 2 pressors currently; improved tachycardia; abdomen soft/ nondistended -IV antibiotics -Aggressive IV fluids -Anticoagulation -We will need OR for exploration and resection when medically stable; will need ICU admission and aggressive resuscitation 2. Significant atherosclerosis and coronary artery disease: +troponins (down- trending)/elevated ckmb - concern for cardiac event -Patient high risk for any surgery -Cardiac optimization -cards consult 3. Acute renal failure secondary to above: cr improving -Aggressive and judicious fluid management -Renal consult -Try to avoid nephrotoxic agents if possible 4. Coffee-ground emesis with possible upper GI bleed -Close monitoring and transfuse as needed -PPI 5. Anemia with possible blood loss -As above 6. Dysrhythmia history -Optimize lytes -Rate control -Anticoagulation 7. Acute hypokalemia -Correct aggressively 8. Obesity with BMI 32 -eventual weight loss/management 9. Alzheimer's dementia, schizophrenia (paranoid) -Medical and psychiatric optimization -Patient has a conservator but no family. 10. Hypoalbuminemia with hypocalcemia: nutritional +/- inflammation -optimize nutrition as able -as above 11. Left pl effusion vs. pna: -pulm toilet -supportive Thank you. Patient seen and examined in collaboration with Dr. Felton Zhang. Problems: Subjective 24 Hr Interval Summary Continues in ICU care- on 2 pressors. Somnolent. Leukocytosis minimally improved. Tachycardia improved. Abdomen non-distended. Non-verbal indicators of pain not present. No reports of vomiting, sz, fevers. Exam/Review of Systems Vital Signs Vitals Vital Signs Date Time Temp Pulse Resp B/P Pulse Ox O2 Delivery O2 Flow Rate FiO2 06/04/17 09:45 99 21 130/59 99 Room Air 06/04/17 08:00 98.5 06/03/17 22:25 2.0 Intake and Output 06/03/17 06/03/17 06/04/17 15:00 23:00 07:00 Intake Total 1576.875 ml Output Total 1445 ml Balance 131.875 ml Exam Free Text/Dictation Constitutional: obese, other (somnolent), No oriented Psych: confusion, nl mood/affect Head: atraumatic, normocephalic Eyes: PERRL, nl conjunctiva, No icteric ENMT: nl external ears & nose, No mucosa pink and moist Neck: jvd, non-tender, supple Respiratory: normal air movement, No congested cough, No labored breathing Cardiovascular: edema, uncontrolled/controlled afib No regular rate and rhythm Gastrointestinal: min distended, soft, tender, No rebound or guarding Musculoskeletal: No joint tenderness, No nl extremities to inspection, No nl gait and stance Extremities: No calf tenderness, No cyanosis Neurological: No nl mental status, No nl strength Skin: No diaphoresis, No rash or lesions Lymph: nl lymph nodes, nontender Results Result Diagram: 06/04/17 0906 06/04/17 0400 BABS ROSE NP Jun 04, 2017 10:55
--- NOTE | 2017-06-04 11:26 | CONS ---
Date/Time of Note Date/Time of Note DATE: 06/04/17 TIME: 11:16 Assessment/Plan Assessment/Plan Additional Assessment/Plan Gentleman in the intensive care unit with ischemic colitis and septic shock. I will contact conservator established ongoing level of care. Consultation Date/Type/Reason Admit Date/Time Type of Consultation: Palliative care Hx of Present Illness This is a 81-year-old gentleman in the intensive care unit [facility] in shock secondary to ischemic colitis. Patient presented to the emergency room with abdominal discomfort CT scan of the abdomen confirmed the above diagnosis has been seen by surgical consultation Dr. Zhang. Patient was too unstable to go to the emergency room and continues in the intensive care unit for stabilization. Other comorbid major medical problems including chronic kidney disease positive troponin atrial fibrillation, altered mental status, history of Alzheimer's dementia. Patient has a conservator who we were trying to contact at this time patient's primary care physician is not on staff at this hospital but he has been contacted and updated about recent medical condition. Psychological: confusion Social History Smoking Status: Unknown if ever smoked Exam/Review of Systems Vital Signs Vitals Vital Signs Date Time Temp Pulse Resp B/P Pulse Ox O2 Delivery O2 Flow Rate FiO2 06/04/17 09:45 99 21 130/59 99 Room Air 06/04/17 08:00 98.5 06/03/17 22:25 2.0 Intake and Output 06/03/17 06/03/17 06/04/17 15:00 23:00 07:00 Intake Total 1576.875 ml Output Total 1445 ml Balance 131.875 ml Exam Constitutional: distress, non-verbal Head: atraumatic, normocephalic Respiratory: diminished breath sounds (Without rales, rhonchi, wheezing, rubs) , other (Without rales rhonchi wheezing rubs) Cardiovascular: other (S1-S2 without S3-S4 cannot assess rate rhythm) Gastrointestinal: distended (No bowel sounds appreciated) Neurological: unresponsive Results Result Diagram: 06/04/17 0906 06/04/17 1003 Results 24 hrs Laboratory Tests Test 06/03/17 15:12 06/03/17 17:10 06/03/17 18:35 06/03/17 19:00 White Blood Count 11.5 H Red Blood Count 4.63 L Hemoglobin 12.7 L Hematocrit 38.0 L Mean Corpuscular Volume 82.1 Mean Corpuscular Hemoglobin 27.4 L Mean Corpuscular Hemoglobin Concent 33.4 Red Cell Distribution Width 17.9 H Platelet Count 223 Mean Platelet Volume 11.4 H Neutrophils % Segmented Neutrophils % (Manual) 61 Band Neutrophils % (Manual) 13 H Lymphocytes % Lymphocytes % (Manual) 10 L Monocytes % Monocytes % (Manual) 16 H Eosinophils % Basophils % Nucleated Red Blood Cells % 1 H Neutrophils # Neutrophils # (Manual) 7.2 Band Neutrophils # 1.4 H Absolute Lymphocytes (Manual) 1.1 Lymphocytes # 1.2 Monocytes # 1.8 H Absolute Monocytes (Manual) 1.8 H Eosinophils # Basophils # Nucleated Red Blood Cells # Prothrombin Time 15.7 H Prothrombin Time Ratio 1.2 INR International Normalized Ratio 1.24 Activated Partial Thromboplast Time 33.8 Sodium Level 138 138 Potassium Level 2.8 *L 3.0 L Chloride Level 101 107 Carbon Dioxide Level 19 L 15 L Anion Gap 21 H 19 H Blood Urea Nitrogen 94 H 94 H Creatinine 4.04 H 4.03 H Glucose Level 127 103 Lactic Acid Level 2.8 *H 4.0 *H Calcium Level 8.9 7.7 L Magnesium Level 2.5 Total Bilirubin 0.4 Direct Bilirubin 0.00 Indirect Bilirubin 0.4 Aspartate Amino Transf (AST/SGOT) 35 Alanine Aminotransferase (ALT/SGPT) 32 Alkaline Phosphatase 83 Troponin I 1.410 *H Total Protein 7.4 Albumin 3.9 Globulin 3.50 H Albumin/Globulin Ratio 1.11 Lipase 96 Urine Color CARLOS MANUEL Urine Clarity CLOUDY A Urine pH 5.0 Urine Specific [place] 1.023 Urine Ketones NEGATIVE Urine Nitrite NEGATIVE Urine Bilirubin NEGATIVE Urine Urobilinogen 1+ H Urine Leukocyte Esterase NEGATIVE Urine Microscopic RBC 0 Urine Microscopic WBC 1 Urine Hemoglobin NEGATIVE Urine Glucose NEGATIVE Urine Total Protein 1+ H Test 06/03/17 21:12 06/04/17 01:00 06/04/17 04:00 06/04/17 09:06 Lactic Acid Level 3.1 *H 2.0 1.7 Troponin I 1.270 *H 0.867 *H 0.879 *H Creatine Kinase 213 H 218 H Creatine Kinase Index 6.1 7.2 Creatinine Kinase MB (Mass) 12.90 H 15.60 H White Blood Count 11.9 H 11.0 H Red Blood Count 4.12 L 4.14 L Hemoglobin 11.0 L 11.6 L Hematocrit 34.3 L 35.0 L Mean Corpuscular Volume 83.3 84.5 Mean Corpuscular Hemoglobin 26.7 L 28.0 L Mean Corpuscular Hemoglobin Concent 32.1 33.1 Red Cell Distribution Width 18.6 H 18.3 H Platelet Count 162 # 184 Mean Platelet Volume 12.0 H 11.1 H Neutrophils % 75.2 76.4 Lymphocytes % 6.4 L 6.9 L Monocytes % 18.1 H 16.1 H Eosinophils % 0.0 0.0 Basophils % 0.0 0.2 Nucleated Red Blood Cells % 0.0 0.0 Neutrophils # 8.9 H 8.4 H Lymphocytes # 0.8 0.8 Monocytes # 2.2 H 1.8 H Eosinophils # 0.0 0.0 Basophils # 0.0 0.0 Nucleated Red Blood Cells # 0.0 0.0 Sodium Level 144 Potassium Level 2.3 *L Chloride Level 112 H Carbon Dioxide Level 18 L Anion Gap 16 Blood Urea Nitrogen 79 H Creatinine 3.19 H Glucose Level 165 Calcium Level 7.4 L Magnesium Level 2.0 Total Bilirubin 0.4 Direct Bilirubin 0.00 Indirect Bilirubin 0.4 Aspartate Amino Transf (AST/SGOT) 32 Alanine Aminotransferase (ALT/SGPT) 35 Alkaline Phosphatase 66 Total Protein 6.2 # Albumin 2.8 #L Globulin 3.40 H Albumin/Globulin Ratio 0.82 Test 06/04/17 10:03 Sodium Level 145 H Potassium Level 2.5 *L Chloride Level 116 H Carbon Dioxide Level 17 L Anion Gap 15 Blood Urea Nitrogen 65 H Creatinine 2.59 H Glucose Level 193 Calcium Level 7.4 L Medications Medications Current Medications Dextrose/Sodium Chloride (D5-1/2ns) 1,000 ml @ 125 mls/hr Q8H IV Last administered on 06/04/17t 06:57; Admin Dose 125 MLS/HR; Start 06/03/17 at 22: 43 Ondansetron HCl (Zofran Inj) 4 mg Q6H PRN IV NAUSEA AND/OR VOMITING; Start at 23:00 Morphine Sulfate (morphine) 3 mg Q4H PRN IV PAIN LEVEL 7-10; Start 06/03/17 at 23:00 Hydromorphone HCl (Dilaudid) 0.5 mg Q4H PRN IV PAIN LEVEL 7-10; Start at 23:00 Pantoprazole 40 mg 40 mg DAILY@06 IV Last administered on 06/04/17 05:10; Admin Dose 40 MG; Start 06/04/17 at 06:00 Piperacillin Sod/ Tazobactam Sod 50 ml @ 200 mls/hr Q8 IVPB Last administered on 06/04/17 05:10; Admin Dose 200 MLS/HR; Start 06/03/17 at 23:59 Norepinephrine 16 mg/Dextrose 500 ml @ 1.87 mls/hr TITRATE IV Last administered on 06/04/17 08:14; Admin Dose 1.87 MLS/HR; Start 06/04/17 at 03: 00 Phenylephrine HCl 40 mg/Dextrose 500 ml @ 75 mls/hr TITRATE IV Last administered on 06/04/17 02:33; Admin Dose 37.5 MLS/HR; Start 06/04/17 at 01: 30 Heparin Sodium (Porcine) 250 ml @ 10 mls/hr Q24H IV Last administered on 06/04 06:37; Admin Dose 10 MLS/HR; Start 06/04/17 at 06:30 Potassium Chloride 250 ml @ 62.5 mls/hr Q4H IVPB Last administered on 11:10; Admin Dose 62.5 MLS/HR; Start 06/04/17 at 07:00; Stop 06/04/17 at 14:59 Potassium Chloride (KCl 10 MEQ/50 ML SW) 50 ml @ 50 mls/hr Q1H IVPB ; Start at 15:00; Stop 06/04/17 at 16:59 KIMI WOOD Jun 04, 2017 11:26
--- NOTE | 2017-06-04 11:32 | CONS ---
Date/Time of Note Date/Time of Note DATE: 06/04/17 TIME: 11:26 Assessment/Plan Assessment/Plan Chief Complaint/Hosp Course This is a 81-year-old gentleman in the intensive care unit [facility] in shock secondary to ischemic colitis. Patient presented to the emergency room with abdominal discomfort CT scan of the abdomen confirmed the above diagnosis has been seen by surgical consultation Dr. Zhang. Patient was too unstable to go to the emergency room and continues in the intensive care unit for stabilization. Other comorbid major medical problems including chronic kidney disease positive troponin atrial fibrillation, altered mental status, history of Alzheimer's dementia. Patient has a conservator who we were trying to contact at this time patient's primary care physician is not on staff at this hospital but he has been contacted and updated about recent medical condition. Problems: Additional Assessment/Plan Follow-up palliative care note I have called patient's conservator and left a message. The number I contact with area code [phone] and I have left my callback number. We will need to get some guidance from patient's conservator however for now with suggest continue with this current level of care unless conservator has some inflammation to the otherwise. In the event that patient does not significantly improve in if he is too critically ill to go to the operating room strongly suggest bioethics consultation to discuss goals of care with conservator by conference call. Consultation Date/Type/Reason Admit Date/Time Jun 03, 2017 at 20:38 Initial Consult Date 06/03/17 Type of Consultation: Palliative care Referring Provider: LOUIE CHUA MD Exam/Review of Systems Vital Signs Vitals Vital Signs Date Time Temp Pulse Resp B/P Pulse Ox O2 Delivery O2 Flow Rate FiO2 06/04/17 09:45 99 21 130/59 99 Room Air 06/04/17 08:00 98.5 06/03/17 22:25 2.0 Intake and Output 06/03/17 06/03/17 06/04/17 15:00 23:00 07:00 Intake Total 1576.875 ml Output Total 1445 ml Balance 131.875 ml Results Result Diagram: 06/04/17 0906 06/04/17 1003 Results 24 hrs Laboratory Tests Test 06/03/17 15:12 06/03/17 17:10 06/03/17 18:35 06/03/17 19:00 White Blood Count 11.5 H Red Blood Count 4.63 L Hemoglobin 12.7 L Hematocrit 38.0 L Mean Corpuscular Volume 82.1 Mean Corpuscular Hemoglobin 27.4 L Mean Corpuscular Hemoglobin Concent 33.4 Red Cell Distribution Width 17.9 H Platelet Count 223 Mean Platelet Volume 11.4 H Neutrophils % Segmented Neutrophils % (Manual) 61 Band Neutrophils % (Manual) 13 H Lymphocytes % Lymphocytes % (Manual) 10 L Monocytes % Monocytes % (Manual) 16 H Eosinophils % Basophils % Nucleated Red Blood Cells % 1 H Neutrophils # Neutrophils # (Manual) 7.2 Band Neutrophils # 1.4 H Absolute Lymphocytes (Manual) 1.1 Lymphocytes # 1.2 Monocytes # 1.8 H Absolute Monocytes (Manual) 1.8 H Eosinophils # Basophils # Nucleated Red Blood Cells # Prothrombin Time 15.7 H Prothrombin Time Ratio 1.2 INR International Normalized Ratio 1.24 Activated Partial Thromboplast Time 33.8 Sodium Level 138 138 Potassium Level 2.8 *L 3.0 L Chloride Level 101 107 Carbon Dioxide Level 19 L 15 L Anion Gap 21 H 19 H Blood Urea Nitrogen 94 H 94 H Creatinine 4.04 H 4.03 H Glucose Level 127 103 Lactic Acid Level 2.8 *H 4.0 *H Calcium Level 8.9 7.7 L Magnesium Level 2.5 Total Bilirubin 0.4 Direct Bilirubin 0.00 Indirect Bilirubin 0.4 Aspartate Amino Transf (AST/SGOT) 35 Alanine Aminotransferase (ALT/SGPT) 32 Alkaline Phosphatase 83 Troponin I 1.410 *H Total Protein 7.4 Albumin 3.9 Globulin 3.50 H Albumin/Globulin Ratio 1.11 Lipase 96 Urine Color CARLOS MANUEL Urine Clarity CLOUDY A Urine pH 5.0 Urine Specific [place] 1.023 Urine Ketones NEGATIVE Urine Nitrite NEGATIVE Urine Bilirubin NEGATIVE Urine Urobilinogen 1+ H Urine Leukocyte Esterase NEGATIVE Urine Microscopic RBC 0 Urine Microscopic WBC 1 Urine Hemoglobin NEGATIVE Urine Glucose NEGATIVE Urine Total Protein 1+ H Test 06/03/17 21:12 06/04/17 01:00 06/04/17 04:00 06/04/17 09:06 Lactic Acid Level 3.1 *H 2.0 1.7 Troponin I 1.270 *H 0.867 *H 0.879 *H Creatine Kinase 213 H 218 H Creatine Kinase Index 6.1 7.2 Creatinine Kinase MB (Mass) 12.90 H 15.60 H White Blood Count 11.9 H 11.0 H Red Blood Count 4.12 L 4.14 L Hemoglobin 11.0 L 11.6 L Hematocrit 34.3 L 35.0 L Mean Corpuscular Volume 83.3 84.5 Mean Corpuscular Hemoglobin 26.7 L 28.0 L Mean Corpuscular Hemoglobin Concent 32.1 33.1 Red Cell Distribution Width 18.6 H 18.3 H Platelet Count 162 # 184 Mean Platelet Volume 12.0 H 11.1 H Neutrophils % 75.2 76.4 Lymphocytes % 6.4 L 6.9 L Monocytes % 18.1 H 16.1 H Eosinophils % 0.0 0.0 Basophils % 0.0 0.2 Nucleated Red Blood Cells % 0.0 0.0 Neutrophils # 8.9 H 8.4 H Lymphocytes # 0.8 0.8 Monocytes # 2.2 H 1.8 H Eosinophils # 0.0 0.0 Basophils # 0.0 0.0 Nucleated Red Blood Cells # 0.0 0.0 Sodium Level 144 Potassium Level 2.3 *L Chloride Level 112 H Carbon Dioxide Level 18 L Anion Gap 16 Blood Urea Nitrogen 79 H Creatinine 3.19 H Glucose Level 165 Calcium Level 7.4 L Magnesium Level 2.0 Total Bilirubin 0.4 Direct Bilirubin 0.00 Indirect Bilirubin 0.4 Aspartate Amino Transf (AST/SGOT) 32 Alanine Aminotransferase (ALT/SGPT) 35 Alkaline Phosphatase 66 Total Protein 6.2 # Albumin 2.8 #L Globulin 3.40 H Albumin/Globulin Ratio 0.82 Test 06/04/17 10:03 Sodium Level 145 H Potassium Level 2.5 *L Chloride Level 116 H Carbon Dioxide Level 17 L Anion Gap 15 Blood Urea Nitrogen 65 H Creatinine 2.59 H Glucose Level 193 Calcium Level 7.4 L Medications Medications Current Medications Dextrose/Sodium Chloride (D5-1/2ns) 1,000 ml @ 125 mls/hr Q8H IV Last administered on 06/04/17t 06:57; Admin Dose 125 MLS/HR; Start 06/03/17 at 22: 43 Ondansetron HCl (Zofran Inj) 4 mg Q6H PRN IV NAUSEA AND/OR VOMITING; Start at 23:00 Morphine Sulfate (morphine) 3 mg Q4H PRN IV PAIN LEVEL 7-10; Start 06/03/17 at 23:00 Hydromorphone HCl (Dilaudid) 0.5 mg Q4H PRN IV PAIN LEVEL 7-10; Start at 23:00 Pantoprazole 40 mg 40 mg DAILY@06 IV Last administered on 06/04/17 05:10; Admin Dose 40 MG; Start 06/04/17 at 06:00 Piperacillin Sod/ Tazobactam Sod 50 ml @ 200 mls/hr Q8 IVPB Last administered on 06/04/17 05:10; Admin Dose 200 MLS/HR; Start 06/03/17 at 23:59 Norepinephrine 16 mg/Dextrose 500 ml @ 1.87 mls/hr TITRATE IV Last administered on 06/04/17 08:14; Admin Dose 1.87 MLS/HR; Start 06/04/17 at 03: 00 Phenylephrine HCl 40 mg/Dextrose 500 ml @ 75 mls/hr TITRATE IV Last administered on 06/04/17 02:33; Admin Dose 37.5 MLS/HR; Start 06/04/17 at 01: 30 Heparin Sodium (Porcine) 250 ml @ 10 mls/hr Q24H IV Last administered on 06/04 06:37; Admin Dose 10 MLS/HR; Start 06/04/17 at 06:30 Potassium Chloride 250 ml @ 62.5 mls/hr Q4H IVPB Last administered on 11:10; Admin Dose 62.5 MLS/HR; Start 06/04/17 at 07:00; Stop 06/04/17 at 14:59 Potassium Chloride (KCl 10 MEQ/50 ML SW) 50 ml @ 50 mls/hr Q1H IVPB ; Start at 15:00; Stop 06/04/17 at 16:59 KIMI WOOD Jun 04, 2017 11:32
--- NOTE | 2017-06-04 12:01 | CONS ---
Date/Time of Note Date/Time of Note DATE: 06/04/17 TIME: 11:57 Assessment/Plan Assessment/Plan Chief Complaint/Hosp Course Problems: Additional Assessment/Plan Have spoken to patient's conservator last name is spelled area code [phone]. She was very helpful I requested some direction insofar is CODE STATUS she will forward paperwork to update patient's current medical condition and prognosis. I emphasize were not asked him to change patient to comfort measures disestablished his CODE STATUS in the event that he does not improve. Consultation Date/Type/Reason Admit Date/Time Jun 03, 2017 at 20:38 Initial Consult Date 06/03/17 Type of Consultation: Palliative care Referring Provider: LOUIE CHUA MD Exam/Review of Systems Vital Signs Vitals Vital Signs Date Time Temp Pulse Resp B/P Pulse Ox O2 Delivery O2 Flow Rate FiO2 06/04/17 11:30 89 21 77/48 98 Room Air 06/04/17 08:00 98.5 06/03/17 22:25 2.0 Intake and Output 06/03/17 06/03/17 06/04/17 15:00 23:00 07:00 Intake Total 1576.875 ml Output Total 1445 ml Balance 131.875 ml Results Result Diagram: 06/04/17 0906 06/04/17 1003 Results 24 hrs Laboratory Tests Test 06/03/17 15:12 06/03/17 17:10 06/03/17 18:35 06/03/17 19:00 White Blood Count 11.5 H Red Blood Count 4.63 L Hemoglobin 12.7 L Hematocrit 38.0 L Mean Corpuscular Volume 82.1 Mean Corpuscular Hemoglobin 27.4 L Mean Corpuscular Hemoglobin Concent 33.4 Red Cell Distribution Width 17.9 H Platelet Count 223 Mean Platelet Volume 11.4 H Neutrophils % Segmented Neutrophils % (Manual) 61 Band Neutrophils % (Manual) 13 H Lymphocytes % Lymphocytes % (Manual) 10 L Monocytes % Monocytes % (Manual) 16 H Eosinophils % Basophils % Nucleated Red Blood Cells % 1 H Neutrophils # Neutrophils # (Manual) 7.2 Band Neutrophils # 1.4 H Absolute Lymphocytes (Manual) 1.1 Lymphocytes # 1.2 Monocytes # 1.8 H Absolute Monocytes (Manual) 1.8 H Eosinophils # Basophils # Nucleated Red Blood Cells # Prothrombin Time 15.7 H Prothrombin Time Ratio 1.2 INR International Normalized Ratio 1.24 Activated Partial Thromboplast Time 33.8 Sodium Level 138 138 Potassium Level 2.8 *L 3.0 L Chloride Level 101 107 Carbon Dioxide Level 19 L 15 L Anion Gap 21 H 19 H Blood Urea Nitrogen 94 H 94 H Creatinine 4.04 H 4.03 H Glucose Level 127 103 Lactic Acid Level 2.8 *H 4.0 *H Calcium Level 8.9 7.7 L Magnesium Level 2.5 Total Bilirubin 0.4 Direct Bilirubin 0.00 Indirect Bilirubin 0.4 Aspartate Amino Transf (AST/SGOT) 35 Alanine Aminotransferase (ALT/SGPT) 32 Alkaline Phosphatase 83 Troponin I 1.410 *H Total Protein 7.4 Albumin 3.9 Globulin 3.50 H Albumin/Globulin Ratio 1.11 Lipase 96 Urine Color CARLOS MANUEL Urine Clarity CLOUDY A Urine pH 5.0 Urine Specific [place] 1.023 Urine Ketones NEGATIVE Urine Nitrite NEGATIVE Urine Bilirubin NEGATIVE Urine Urobilinogen 1+ H Urine Leukocyte Esterase NEGATIVE Urine Microscopic RBC 0 Urine Microscopic WBC 1 Urine Hemoglobin NEGATIVE Urine Glucose NEGATIVE Urine Total Protein 1+ H Test 06/03/17 21:12 06/04/17 01:00 06/04/17 04:00 06/04/17 09:06 Lactic Acid Level 3.1 *H 2.0 1.7 Troponin I 1.270 *H 0.867 *H 0.879 *H Creatine Kinase 213 H 218 H Creatine Kinase Index 6.1 7.2 Creatinine Kinase MB (Mass) 12.90 H 15.60 H White Blood Count 11.9 H 11.0 H Red Blood Count 4.12 L 4.14 L Hemoglobin 11.0 L 11.6 L Hematocrit 34.3 L 35.0 L Mean Corpuscular Volume 83.3 84.5 Mean Corpuscular Hemoglobin 26.7 L 28.0 L Mean Corpuscular Hemoglobin Concent 32.1 33.1 Red Cell Distribution Width 18.6 H 18.3 H Platelet Count 162 # 184 Mean Platelet Volume 12.0 H 11.1 H Neutrophils % 75.2 76.4 Lymphocytes % 6.4 L 6.9 L Monocytes % 18.1 H 16.1 H Eosinophils % 0.0 0.0 Basophils % 0.0 0.2 Nucleated Red Blood Cells % 0.0 0.0 Neutrophils # 8.9 H 8.4 H Lymphocytes # 0.8 0.8 Monocytes # 2.2 H 1.8 H Eosinophils # 0.0 0.0 Basophils # 0.0 0.0 Nucleated Red Blood Cells # 0.0 0.0 Sodium Level 144 Potassium Level 2.3 *L Chloride Level 112 H Carbon Dioxide Level 18 L Anion Gap 16 Blood Urea Nitrogen 79 H Creatinine 3.19 H Glucose Level 165 Calcium Level 7.4 L Magnesium Level 2.0 Total Bilirubin 0.4 Direct Bilirubin 0.00 Indirect Bilirubin 0.4 Aspartate Amino Transf (AST/SGOT) 32 Alanine Aminotransferase (ALT/SGPT) 35 Alkaline Phosphatase 66 Total Protein 6.2 # Albumin 2.8 #L Globulin 3.40 H Albumin/Globulin Ratio 0.82 Test 06/04/17 10:03 Sodium Level 145 H Potassium Level 2.5 *L Chloride Level 116 H Carbon Dioxide Level 17 L Anion Gap 15 Blood Urea Nitrogen 65 H Creatinine 2.59 H Glucose Level 193 Calcium Level 7.4 L Medications Medications Current Medications Dextrose/Sodium Chloride (D5-1/2ns) 1,000 ml @ 125 mls/hr Q8H IV Last administered on 06/04/17 06:57; Admin Dose 125 MLS/HR; Start 06/03/17 at 22: 43 Ondansetron HCl (Zofran Inj) 4 mg Q6H PRN IV NAUSEA AND/OR VOMITING; Start at 23:00 Morphine Sulfate (morphine) 3 mg Q4H PRN IV PAIN LEVEL 7-10; Start 06/03/17 at 23:00 Hydromorphone HCl (Dilaudid) 0.5 mg Q4H PRN IV PAIN LEVEL 7-10; Start at 23:00 Pantoprazole 40 mg 40 mg DAILY@06 IV Last administered on 06/04/17 05:10; Admin Dose 40 MG; Start 06/04/17 at 06:00 Piperacillin Sod/ Tazobactam Sod 50 ml @ 200 mls/hr Q8 IVPB Last administered on 06/04/17 05:10; Admin Dose 200 MLS/HR; Start 06/03/17 at 23:59 Norepinephrine 16 mg/Dextrose 500 ml @ 1.87 mls/hr TITRATE IV Last administered on 06/04/17 08:14; Admin Dose 1.87 MLS/HR; Start 06/04/17 at 03: 00 Phenylephrine HCl 40 mg/Dextrose 500 ml @ 75 mls/hr TITRATE IV Last administered on 06/04/17 02:33; Admin Dose 37.5 MLS/HR; Start 06/04/17 at 01: 30 Heparin Sodium (Porcine) 250 ml @ 10 mls/hr Q24H IV Last administered on 06/04 06:37; Admin Dose 10 MLS/HR; Start 06/04/17 at 06:30 Potassium Chloride 250 ml @ 62.5 mls/hr Q4H IVPB Last administered on 11:10; Admin Dose 62.5 MLS/HR; Start 06/04/17 at 07:00; Stop 06/04/17 at 14:59 Potassium Chloride (KCl 10 MEQ/50 ML SW) 50 ml @ 50 mls/hr Q1H IVPB ; Start at 15:00; Stop 06/04/17 at 16:59 KIMI WOOD Jun 04, 2017 12: 06:37; Admin Dose 10 MLS/HR; Start 06/04/17 at 06:30 Potassium Chloride 250 ml @ 62.5 mls/hr Q4H IVPB Last administered on 11:10; Admin Dose 62.5 MLS/HR; Start 06/04/17 at 07:00; Stop 06/04/17 at 14:59 Potassium Chloride (KCl 10 MEQ/50 ML SW) 50 ml @ 50 mls/hr Q1H IVPB ; Start at 15:00; Stop 06/04/17 at 16:59 KIMI WOOD Jun 04, 2017 12:01
--- NOTE | 2017-06-04 14:35 | CONS ---
DATE OF ADMISSION: 06/03/2017 DATE OF CONSULTATION: 06/04/2017 NEPHROLOGY CONSULTATION REASON FOR CONSULTATION: Acute kidney injury. PHYSICIAN REQUESTING CONSULT: . HISTORY OF PRESENT ILLNESS: This is an 81-year-old male with a past medical history of Alzheimer de mentia, history of coronary artery disease, hypertension, gastritis, psychosis, dyslipidemia who was admitted from a convalescent home due to coffee-ground emesis. The patient in the emergency room w as noted to be hypotensive. The patient received multiple bouts of IV fluid boluses. The patient i n the emergency room had a CAT scan which showed findings of colon distention liquids stool, suspect ed pneumatosis. The patient was clinically unstable for emergent surgery and was transferred to the intensive care unit. While in the intensive care unit, the patient has been on IV fluids, IV press ors and IV antibiotics. In terms of the patient's renal history, the patient, on admission, noted to have a creatinine of 4 mg/dL over the course of 24 hours with aggressive IV hydration. Creatinine has come down to 2.59 mg /dL. The patient during this time has also had excellent urinary output There have been no reports of hematuria or frothy urine. PAST MEDICAL HISTORY: As stated above, history of dementia, history of coronary artery disease, hyp ertension, gastritis. PAST SURGICAL HISTORY: Unknown. ALLERGIES: NO KNOWN DRUG ALLERGIES. FAMILY HISTORY: Noncontributory. SOCIAL HISTORY: Lives at a skilled nurse facility. MEDICATIONS: The patient's medications have been reviewed. REVIEW OF SYSTEMS: Unable to do adequate review of systems as patient is altered. Pertinent positi ves stated in HPI, as obtained by reviewing medical records and speaking to hospital staff. PHYSICAL EXAMINATION: VITAL SIGNS: Blood pressure 77/48, respiration 21, pulse 89, temperature 98.6. HEENT: Head is normocephalic. NECK: Supple. HEART: Regular rate. LUNGS: Show diminished breath sounds at the base. ABDOMEN: Soft, nontender to palpation. No rebound or guarding. EXTREMITIES: Negative for clubbing, cyanosis, no edema. DERMATOLOGIC: No rashes. MUSCULOSKELETAL: No joint effusions. NEUROLOGIC: No change in exam. MEDICATIONS: The patient's medications reviewed. LABORATORY DATA: Shows sodium 145, potassium 2.5, chloride 116, BUN 65, creatinine 2.59. White cou nt 11.9, hemoglobin 11.6, hematocrit 35.0, platelet count 184. Urinalysis is bland, no hematuria, n o pyuria, +1 proteinuria. ASSESSMENT AND PLAN: This is an 81-year-old male who presents with: 1. Nonoliguric acute kidney injury with unknown baseline creatinine. Etiology secondary to hemodyn amics, septic acute kidney injury. The possibility of tubular injury is also a consideration, but p atient at this point has no evidence and a bland urinary sediment. Renal ultrasound also shows no e vidence of hydronephrosis. The patient's renal function has been improving with IV fluids and press or support. At this point, would continue current treatment plan. Continue IV hydration. Continue pressor support, maintain MAP of 65. Continue IV antibiotics. 2. Hypernatremia. The patient has a free water deficit of approximately 1 liter. Continue current hypotonic fluids and monitor. 3. Hyperkalemia. The patient has total body potassium deficit of approximately 200 mEq. Continue current repletion with IV potassium. 4. Metabolic acidosis, etiology secondary to acute kidney injury and IV fluids. Continue current m edical management. We will check an ABG. 5. Anemia. Monitor hemoglobin and hematocrit levels. 6. Mineral bone disorder. Monitor calcium and phosphorus levels. 7. Septic shock secondary to possible ischemic colitis. Continue current medical management with p ressor support, IV fluids, antibiotic therapy. Follow up with Infectious Disease, CT surgery. 8. Ischemic colitis. Continue current medical management. Follow up with surgery. 9. Coronary artery disease with elevated troponin, possible demand ischemia, possible nonSTEMI. Co ntinue medical management. 10. Acute encephalopathy on Alzheimer dementia. Continue to monitor. 11. Atrial fibrillation with rapid rate. Continue current medical management. Thank you, , for this interesting consult. It will be a pleasure to follow patient with yo u throughout the hospital course. Dictated By: GISELA RODRIGUEZ DO NR/ALLEY Conf#: [id number] DID#: [id number]
[2017-06-04] MEDS: POTASSIUM CHLORIDE 50 ML IVPB SCH ×3 (16:13→19:44)
[2017-06-04] MEDS ORDERED: VANCOMYCIN IV PER PHARMACY XX SCH (19:00)
[2017-06-04 19:22] LABS: POTASSIUM,URINE RANDOM 13.4 mmol/L (25-125)
[2017-06-04 19:28] LABS: CALCIUM 7.6 mg/dl (8.4-10.2); CREATININE 2.16 mg/dl (0.61-1.24)
[2017-06-04 19:29] LABS: POTASSIUM 2.9 mmol/L (3.5-5.1)
[2017-06-04] MEDS ORDERED: VANCOMYCIN 2 GM in SOD CHLORIDE 0.9% 500 ML IVPB SCH (21:00)
[2017-06-05] VITALS (92 sets, daily range): BP systolic 71–133; BP diastolic 37–120; PULSE 69–96; RESP 13–27
[2017-06-05] MEDS: POTASSIUM CHLORIDE 250 ML IVPB SCH (01:08)
[2017-06-05 01:41] LABS: CALCIUM 7.6 mg/dl (8.4-10.2); CREATININE 1.77 mg/dl (0.61-1.24); POTASSIUM 3.4 mmol/L (3.5-5.1)
[2017-06-05 04:39] LABS: EOSINOPHILS % 0.2 % (0.0-7.0); HEMATOCRIT 28.9 % (42.0-52.0); HEMOGLOBIN 9.1 g/dl (14.0-18.0); LYMPHOCYTES # 1.4 10^3/ul (0.8-2.9); LYMPHOCYTES % 17.5 % (15.0-51.0); MEAN CORPUSCULAR HEMOGLOBIN 26.5 pg (29.0-33.0); MEAN CORPUSCULAR HGB CONC 31.5 g/dl (32.0-37.0); MEAN PLATELET VOLUME 11.8 fl (7.4-10.4); MONOCYTE # 1.5 10^3/ul (0.3-0.9); MONOCYTES % 17.8 % (0.0-11.0); NEUTROPHIL # 5.2 10^3/ul (1.6-7.5); NEUTROPHILS % 63.3 % (39.0-77.0); PLATELET COUNT 162 10^3/UL (140-415); RED BLOOD COUNT 3.44 10^6/ul (4.70-6.10); RED CELL DISTRIBUTION WIDTH 18.9 % (11.5-14.5); WHITE BLOOD COUNT 8.2 10^3/ul (4.8-10.8)
[2017-06-05 05:32] LABS: MAGNESIUM 1.9 mg/dl (1.7-2.5); PHOSPHORUS 1.1 mg/dl (2.5-4.9)
[2017-06-05] MEDS: HEPARIN 25000 UNITS/D5W 250 ML IV SCH ×3 (05:34→11:11)
[2017-06-05] MEDS: POTASSIUM CHLORIDE 50 ML IVPB SCH (05:35)
[2017-06-05] MEDS: PIPER-TAZO 2.25 GM (PMX) 50 ML IVPB SCH ×3 (05:38→19:00)
[2017-06-05] MEDS: DEXTROSE 5%-0.45% NACL 1,000 ML IV SCH ×3 (05:39→23:06)
[2017-06-05 08:19] LABS: CALCIUM 7.6 mg/dl (8.4-10.2); CREATININE 1.6 mg/dl (0.61-1.24); POTASSIUM 3.8 mmol/L (3.5-5.1)
[2017-06-05] MEDS ORDERED: FAMOTIDINE 20 MG INJ IV SCH (09:00)
[2017-06-05] MEDS ORDERED: POTASSIUM PHOSPHATE 40 MEQ in SOD CHLORIDE 0.9% 250 ML IVPB ONE (10:00)
[2017-06-05 10:03] LABS: AADO2 Arterial 21.1 mmHg (7.0-24.0); Allen Test ACCEPTAB; Arterial Base Excess -5.1 mmol/L (-3.0-3); Arterial COHb 0.3 % (0.0-3.0); Arterial Fraction of Oxyhgb 96.8 % (93.0-99.0); Arterial MetHb 0.1 % (0.0-1.5); Arterial Total Hemglobin 10.8 g/dl (12.0-18.0); MODE ROOM AIR
[2017-06-05] MEDS: PANTOPRAZOLE 40 MG INJ IV SCH (10:28)
[2017-06-05] MEDS ORDERED: POTASSIUM PHOSPHATE 15 MM in SOD CHLORIDE 0.9% 250 ML IVPB ONE (10:30)
--- NOTE | 2017-06-05 10:41 | PN ---
DATE: 06/05/2017 SUBJECTIVE: The patient remains critically ill on pressor support. No other events noted. OBJECTIVE: VITAL SIGNS: Blood pressure is 113/58, respiration 20, pulse 76, temperature 98.6. HEENT: Head is normocephalic. NECK: Supple. HEART: Regular rate. LUNGS: Show diminished breath sounds at the base. ABDOMEN: Soft, nontender to palpation without rebound or guarding. EXTREMITIES: Negative for clubbing, cyanosis, no edema. DERMATOLOGIC: No rashes. MUSCULOSKELETAL: No joint effusions. NEUROLOGIC: No change in exam. MEDICATIONS: The patient's medications have been reviewed. LABORATORY DATA: Shows sodium 148, potassium 3.8, chloride 121, BUN 41, creatinine 1.60, calcium 7. 6, phosphorus 1.1. White count 8.2, hemoglobin 9.1, crit 28.9, platelet count is 162. ASSESSMENT AND PLAN: 1. Nonoliguric acute kidney injury with unknown baseline creatinine. Etiology secondary to hemodyn amic sepsis. The patient's renal function has been improving with current supportive care, IV fluid s. At this point, continue current treatment plan. Continue to renally dose all medications, aleisha nue pressor support, IV hydration. 2. Hypernatremia. The patient has a free water deficit of 1 liter. We will monitor closely. Cont inue current IV fluids. 3. Hypokalemia. Continue to monitor and replete. 4. Mineral bone disorder. The patient is hyperphosphatemic. We will treat with potassium phosphat e 40 mEq IV x1. 5. Anemia. Monitor any changes. 6. Septic shock secondary to possible ischemic colitis. Continue current medical management and IV fluids, pressor support. Follow up with infectious disease. 7. Ischemic colitis. Follow up with surgery. 8. Coronary artery disease. Continue current medical management and follow up with cardiology. 9. Acute encephalopathy and Alzheimer dementia, etiology toxic metabolic. 10. Atrial fibrillation with rapid rate, currently controlled. Continue current treatment plan. Dictated By: GISELA GUARDADO/ALLEY Conf#: [id number] DID#: [id number]
--- NOTE | 2017-06-05 11:16 | CONS ---
Date/Time of Note Date/Time of Note DATE: 06/05/17 TIME: 11:12 Assessment/Plan Assessment/Plan Chief Complaint/Hosp Course Problems: Additional Assessment/Plan Ischemic bowel Sepsis syndrome now pressors are being tapered down Pain secondary to the above Dementia, delirium We will adjust pain control medication to fentanyl. Will be working with patient's conservator for code change unless patient goes to surgery. Their respective prognosis is extremely poor. Consultation Date/Type/Reason Admit Date/Time Jun 03, 2017 at 20:38 Initial Consult Date 06/03/17 Type of Consultation: Palliative care pain managemen Referring Provider: LOUIE CHUA MD 24 HR Interval Summary Free Text/Dictation Paperwork has been sent from department mental health I am in the process of completing it now to send back to his conservator. He still looks uncomfortable today and is moaning and groaning, I cannot get him to do any purposeful movements barely opens his eyes. Exam/Review of Systems Vital Signs Vitals Vital Signs Date Time Temp Pulse Resp B/P Pulse Ox O2 Delivery O2 Flow Rate FiO2 06/05/17 08:00 76 06/05/17 06:15 19 117/61 100 06/05/17 06:00 Room Air 06/05/17 04:00 98.5 06/03/17 22:25 2.0 Intake and Output 06/04/17 06/04/17 06/05/17 15:00 23:00 07:00 Intake Total 1866.84 ml 1905.16 ml 1710.86 ml Output Total 2210 ml 1835 ml 775 ml Balance -343.16 ml 70.16 ml 935.86 ml Exam Constitutional: distress, frail Respiratory: diminished breath sounds, No clear to auscultation, No congested cough, No crackles/rales, No intercostal retraction, No labored breathing, No normal air movement, No other, No respirations, No tactile fremitus, No wheezing Cardiovascular: No S3, No S4, No bruits, No diastolic murmur, No edema, No gallop, No irregular rhythm, No jugular venous distention (JVD), No murmurs/ extra sounds, No nl pulses, No other, No regular rate and rhythm, No rub, No systolic murmur Results Result Diagram: 10/17/17 0400 10/17/17 0400 Results 24 hrs Laboratory Tests Test 06/04/17 18:00 06/04/17 18:46 06/05/17 01:07 06/05/17 04:00 Urine Random Sodium 113 H Urine Random Potassium 13.4 L Activated Partial Thromboplast Time 41.8 H > 180.0 *H 71.7 *H Sodium Level 146 H 148 H 148 H Potassium Level 2.9 *L 3.4 L 3.8 Chloride Level 118 H 120 H 121 H Carbon Dioxide Level 21 20 L 18 L Anion Gap 10 # 11 13 Blood Urea Nitrogen 53 H 43 H 41 H Creatinine 2.16 H 1.77 H 1.60 H Glucose Level 140 # 107 115 Calcium Level 7.6 L 7.6 L 7.6 L White Blood Count 8.2 # Red Blood Count 3.44 L Hemoglobin 9.1 #L Hematocrit 28.9 L Mean Corpuscular Volume 84.0 Mean Corpuscular Hemoglobin 26.5 L Mean Corpuscular Hemoglobin Concent 31.5 L Red Cell Distribution Width 18.9 H Platelet Count 162 Mean Platelet Volume 11.8 H Neutrophils % 63.3 Lymphocytes % 17.5 Monocytes % 17.8 H Eosinophils % 0.2 Basophils % 0.0 Nucleated Red Blood Cells % 0.0 Neutrophils # 5.2 Lymphocytes # 1.4 Monocytes # 1.5 H Eosinophils # 0.0 Basophils # 0.0 Nucleated Red Blood Cells # 0.0 Phosphorus Level 1.1 L Magnesium Level 1.9 Test 06/05/17 06:00 06/05/17 09:30 Activated Partial Thromboplast Time 34.6 Blood Gas Specimen Source Blood arterial Arterial Blood Date Drawn 06/05/2017 9:50:36 AM Arterial Blood pH (Temp corrected) 7.433 Arterial Blood pCO2 (Temp correct) 27.6 L Arterial Blood pO2 (Temp corrected) 95.6 H Arterial Blood HCO3 18.0 L Arterial Blood Base Excess -5.1 L Arterial Blood Oxygen Saturation 97.2 Christopher Test ACCEPTAB Arterial Blood Gas Puncture Site Right Radial Arterial Blood Carboxyhemoglobin 0.3 Arterial Blood Methemoglobin 0.1 Blood Gas A-a O2 Differential 21.1 Oxyhemoglobin Percent 96.8 Total Hemoglobin 10.8 L Blood Gas Temperature 37.0 Blood Gas Modality ROOM AIR FiO2 21.0 Blood Gas Notified Whom LIBRADO Blood Gas Notified Time 06/05/2017 10:02:59 AM Medications Medications Current Medications Dextrose/Sodium Chloride (D5-1/2ns) 1,000 ml @ 125 mls/hr Q8H IV Last administered on 06/05/17 05:39; Admin Dose 125 MLS/HR; Start 06/03/17 at 22: 43 Ondansetron HCl (Zofran Inj) 4 mg Q6H PRN IV NAUSEA AND/OR VOMITING; Start at 23:00 Morphine Sulfate (morphine) 3 mg Q4H PRN IV PAIN LEVEL 7-10 Last administered on 06/04/17 15:26; Admin Dose 3 MG; Start 06/03/17 at 23:00 Hydromorphone HCl 0.5 mg 0.5 mg Q4H PRN IV PAIN LEVEL 7-10; Start 06/03/17 at 23:00 Norepinephrine 16 mg/Dextrose 500 ml @ 1.87 mls/hr TITRATE IV Last administered on 06/04/17 08:14; Admin Dose 1.87 MLS/HR; Start 06/04/17 at 03: 00 Phenylephrine HCl 40 mg/Dextrose 500 ml @ 75 mls/hr TITRATE IV Last administered on 06/04/17 02:33; Admin Dose 37.5 MLS/HR; Start 06/04/17 at 01: 30 Heparin Sodium (Porcine) 250 ml @ 10 mls/hr Q24H IV Last administered on 06/05 06:55; Admin Dose 10 MLS/HR; Start 06/04/17 at 06:30 Vancomycin HCl 1.5 gm/Sodium Chloride 250 ml @ 83.333 mls/ hr Q36H IVPB ; Start 06/06/17 at 09:00 Piperacillin Sod/ Tazobactam Sod (Zosyn 2.25gm/ 50ml (Pmx)) 50 ml @ 200 mls/hr Q6 IVPB ; Start 06/05/17 at 12:00 Pantoprazole 40 mg 40 mg DAILY@06 IV Last administered on 06/05/17 10:28; Admin Dose 40 MG; Start 06/05/17 at 09:00 Potassium Phosphate 40 meq/ Sodium Chloride 259.0909 ml @ 64.773 m... ONCE ONCE IVPB Last administered on 06/05/17 10:29; Admin Dose 64.773 MLS/HR; Start 06/05/17 at 10:00; Stop 06/05/17 at 13:59 Potassium Phosphate/Sodium Chloride (K Phos (Mm)/NS) 255 ml @ 63.75 mls/ hr ONCE ONCE IVPB ; Start 06/05/17 at 10:30; Stop 06/05/17 at 14:29 KIMI WOOD Jun 05, 2017 11:16
[2017-06-05 13:19] LABS: CALCIUM 7.8 mg/dl (8.4-10.2); CREATININE 1.25 mg/dl (0.61-1.24); POTASSIUM 3.4 mmol/L (3.5-5.1)
--- NOTE | 2017-06-05 15:21 | CONS ---
Date/Time of Note Date/Time of Note DATE: 06/05/17 TIME: 14:55 Assessment/Plan Assessment/Plan Chief Complaint/Hosp Course Assessment: Suspected pneumatosis/ likely related to Ischemic colitis Alzheimer's dementia Hypokalemia/ treated improved Plan: No change in course of care at this time Patient is deemed extremely high risk Colonoscopy is not recommended Continue antibiotics and pain management Pt seen in collaboration with Dr. Davis Chief Complaint/Reason for Visit: Ischemic bowel History of Present Illness: This is an 81-year-old sent from convalescent home with coffee-ground emesis and abdominal pain. Upon admission patient was found to be hypotensive with elevated lactic acid and mild anemia. CAT scan abdomen and pelvis without contrast revealed suspected pneumatosis of the ascending colon, which is concerning for ischemic colitis. Patient was not stable enough for surgery and instead placed on heparin drip at that time. Patient is currently on pressors, antibiotics and heparin drip. He has a history of Alzheimer's dementia and is unable to give detailed history. Nurse denies any further episodes of coffee- ground emesis or any episodes of rectal bleeding. Medical team is in talks with conservative to change CODE STATUS. Patient has a poor prognosis and considered high risk. He is currently not a candidate for colonoscopy. Past Medical History: Esophageal ulcer Large hiatal hernia GERD. Alzheimer's dementia Coronary artery disease Hypertension Gastritis Allergies: No known drug allergies Family History: Unable to obtained Social History: Lives in a care home Problems: Consultation Date/Type/Reason Admit Date/Time Jun 03, 2017 at 20:38 Date of Consultation: Jun 05, 2017 Type of Consultation: GI Reason for Consultation Ischemic colitis Subjective hx not possible: other (Hx of Alzheimer's dementia) Psychological: confusion Past Medical History unable to obtain Past Surgical History unable to obtain Social History lives in care home Smoking Status: Unknown if ever smoked Exam/Review of Systems Vital Signs Vitals Vital Signs Date Time Temp Pulse Resp B/P Pulse Ox O2 Delivery O2 Flow Rate FiO2 06/05/17 14:30 76 19 115/78 100 06/05/17 14:00 Room Air 06/05/17 12:00 98.1 06/03/17 22:25 2.0 Intake and Output 06/04/17 06/04/17 06/05/17 15:00 23:00 07:00 Intake Total 1866.84 ml 1905.16 ml 1710.86 ml Output Total 2210 ml 1835 ml 775 ml Balance -343.16 ml 70.16 ml 935.86 ml Exam Constitutional: alert (confused) Head: atraumatic, normocephalic Eyes: nl conjunctiva ENMT: nl external ears & nose Neck: supple Cardiovascular: regular rate and rhythm Gastrointestinal: bowel sounds, tender, No ascites, No distended, No firm, No hepatomegaly, No mass, No rebound or guarding, No splenomegaly, No surgical scars Genitourinary - Male: nl penis Skin: nl turgor Results Result Diagram: 06/05/17 0400 06/05/17 1222 Results 24 hrs Laboratory Tests Test 06/04/17 18:00 06/04/17 18:46 06/05/17 01:07 06/05/17 04:00 Urine Random Sodium 113 H Urine Random Potassium 13.4 L Activated Partial Thromboplast Time 41.8 H > 180.0 *H 71.7 *H Sodium Level 146 H 148 H 148 H Potassium Level 2.9 *L 3.4 L 3.8 Chloride Level 118 H 120 H 121 H Carbon Dioxide Level 21 20 L 18 L Anion Gap 10 # 11 13 Blood Urea Nitrogen 53 H 43 H 41 H Creatinine 2.16 H 1.77 H 1.60 H Glucose Level 140 # 107 115 Calcium Level 7.6 L 7.6 L 7.6 L White Blood Count 8.2 # Red Blood Count 3.44 L Hemoglobin 9.1 #L Hematocrit 28.9 L Mean Corpuscular Volume 84.0 Mean Corpuscular Hemoglobin 26.5 L Mean Corpuscular Hemoglobin Concent 31.5 L Red Cell Distribution Width 18.9 H Platelet Count 162 Mean Platelet Volume 11.8 H Neutrophils % 63.3 Lymphocytes % 17.5 Monocytes % 17.8 H Eosinophils % 0.2 Basophils % 0.0 Nucleated Red Blood Cells % 0.0 Neutrophils # 5.2 Lymphocytes # 1.4 Monocytes # 1.5 H Eosinophils # 0.0 Basophils # 0.0 Nucleated Red Blood Cells # 0.0 Phosphorus Level 1.1 L Magnesium Level 1.9 Test 06/05/17 06:00 06/05/17 09:30 06/05/17 12:22 Activated Partial Thromboplast Time 34.6 68.6 H Blood Gas Specimen Source Blood arterial Arterial Blood Date Drawn 06/05/2017 9:50:36 AM Arterial Blood pH (Temp corrected) 7.433 Arterial Blood pCO2 (Temp correct) 27.6 L Arterial Blood pO2 (Temp corrected) 95.6 H Arterial Blood HCO3 18.0 L Arterial Blood Base Excess -5.1 L Arterial Blood Oxygen Saturation 97.2 Christopher Test ACCEPTAB Arterial Blood Gas Puncture Site Right Radial Arterial Blood Carboxyhemoglobin 0.3 Arterial Blood Methemoglobin 0.1 Blood Gas A-a O2 Differential 21.1 Oxyhemoglobin Percent 96.8 Total Hemoglobin 10.8 L Blood Gas Temperature 37.0 Blood Gas Modality ROOM AIR FiO2 21.0 Blood Gas Notified Whom JLD Blood Gas Notified Time 06/05/2017 10:02:59 AM Sodium Level 145 H Potassium Level 3.4 L Chloride Level 117 H Carbon Dioxide Level 21 Anion Gap 10 Blood Urea Nitrogen 30 #H Creatinine 1.25 H Glucose Level 110 Calcium Level 7.8 L Medications Medications Current Medications Dextrose/Sodium Chloride (D5-1/2ns) 1,000 ml @ 125 mls/hr Q8H IV Last administered on 06/05/17 05:39; Admin Dose 125 MLS/HR; Start 06/03/17 at 22: 43 Ondansetron HCl 4 mg 4 mg Q6H PRN IV NAUSEA AND/OR VOMITING; Start 06/03/17 at 23:00 Norepinephrine 16 mg/Dextrose 500 ml @ 1.87 mls/hr TITRATE IV Last administered on 06/04/17 08:14; Admin Dose 1.87 MLS/HR; Start 06/04/17 at 03: 00 Phenylephrine HCl 40 mg/Dextrose 500 ml @ 75 mls/hr TITRATE IV Last administered on 06/04/17 02:33; Admin Dose 37.5 MLS/HR; Start 06/04/17 at 01: 30 Heparin Sodium (Porcine) 250 ml @ 10 mls/hr Q24H IV Last administered on 06/05 11:11; Admin Dose 10 MLS/HR; Start 06/04/17 at 06:30 Vancomycin HCl 1.5 gm/Sodium Chloride 250 ml @ 83.333 mls/ hr Q36H IVPB ; Start 06/06/17 at 09:00 Piperacillin Sod/ Tazobactam Sod (Zosyn 2.25gm/ 50ml (Pmx)) 50 ml @ 200 mls/hr Q6 IVPB Last administered on 06/05/17 12:35; Admin Dose 200 MLS/HR; Start at 12:00 Pantoprazole (Protonix Iv) 40 mg DAILY@06 IV Last administered on 06/05/17 10 :28; Admin Dose 40 MG; Start 06/05/17 at 09:00 Fentanyl (Sublimaze) 50 mcg Q3H PRN IV PAIN; Start 06/05/17 at 11:30 Copies To: CC: TA DAVIS MD, VICTORIA Jun 05, 2017 15:06
--- NOTE | 2017-06-05 15:26 | PN ---
Date/Time of Note Date/Time of Note DATE: 06/05/17 TIME: 15:20 Assessment/Plan VTE Prophylaxis VTE Prophylaxis Intervention: LMWH Lines/Catheters IV Catheter Type (from Nrsg): Central Line Central line still needed: Yes Urinary Cath still in place: Yes Reason Cath still needed: urinary retention Assessment/Plan Chief Complaint/Hosp Course 81 yo male with dementia who presented with SHAYNA, electrolyte derangments, septic shock and ischemic colitis Septic shock: - Continue broad spectrum abx - Vasopressors to MAP > 65 Ischemic colitis: - Heparin gtt - OR if needed, surgery following Metabolic acidosis, hypokalemia, hypophosphatemia, hypernatremia, SHAYNA: - Replete K, PHos as needed - SHAYNA is resolving with fluids - Replace FW deficit Appreciate Dr Alycia ag with goals of care Problems: Subjective 24 Hr Interval Summary Free Text/Dictation Still on low dose levophed No acute events Mild abdominal pain but he feels well Exam/Review of Systems Vital Signs Vitals Vital Signs Date Time Temp Pulse Resp B/P Pulse Ox O2 Delivery O2 Flow Rate FiO2 06/05/17 14:30 76 19 115/78 100 06/05/17 14:00 Room Air 06/05/17 12:00 98.1 06/03/17 22:25 2.0 Intake and Output 06/04/17 06/04/17 06/05/17 15:00 23:00 07:00 Intake Total 1866.84 ml 1905.16 ml 1710.86 ml Output Total 2210 ml 1835 ml 775 ml Balance -343.16 ml 70.16 ml 935.86 ml Exam Constitutional: alert, oriented, well developed Psych: nl mood/affect, no complaints Head: atraumatic, normocephalic Eyes: EOMI, PERRL, nl conjunctiva, nl lids, nl sclera ENMT: nl external ears & nose, nl lips & teeth, nl nasal mucosa & septum Neck: non-tender, supple Respiratory: clear to auscultation, normal air movement Cardiovascular: nl pulses, regular rate and rhythm Gastrointestinal: nl liver, spleen, non-tender, soft Musculoskeletal: nl extremities to inspection, nl gait and stance Extremities: normal pulses Neurological: [employer] II-XII intact, nl mental status, nl speech, nl strength Skin: nl turgor, No rash or lesions Lymph: nl lymph nodes Results Result Diagram: 06/05/17 0400 06/05/17 1222 Results 24 hrs Laboratory Tests Test 06/04/17 18:00 06/04/17 18:46 06/05/17 01:07 06/05/17 04:00 Urine Random Sodium 113 H Urine Random Potassium 13.4 L Activated Partial Thromboplast Time 41.8 H > 180.0 *H 71.7 *H Sodium Level 146 H 148 H 148 H Potassium Level 2.9 *L 3.4 L 3.8 Chloride Level 118 H 120 H 121 H Carbon Dioxide Level 21 20 L 18 L Anion Gap 10 # 11 13 Blood Urea Nitrogen 53 H 43 H 41 H Creatinine 2.16 H 1.77 H 1.60 H Glucose Level 140 # 107 115 Calcium Level 7.6 L 7.6 L 7.6 L White Blood Count 8.2 # Red Blood Count 3.44 L Hemoglobin 9.1 #L Hematocrit 28.9 L Mean Corpuscular Volume 84.0 Mean Corpuscular Hemoglobin 26.5 L Mean Corpuscular Hemoglobin Concent 31.5 L Red Cell Distribution Width 18.9 H Platelet Count 162 Mean Platelet Volume 11.8 H Neutrophils % 63.3 Lymphocytes % 17.5 Monocytes % 17.8 H Eosinophils % 0.2 Basophils % 0.0 Nucleated Red Blood Cells % 0.0 Neutrophils # 5.2 Lymphocytes # 1.4 Monocytes # 1.5 H Eosinophils # 0.0 Basophils # 0.0 Nucleated Red Blood Cells # 0.0 Phosphorus Level 1.1 L Magnesium Level 1.9 Test 06/05/17 06:00 06/05/17 09:30 06/05/17 12:22 Activated Partial Thromboplast Time 34.6 68.6 H Blood Gas Specimen Source Blood arterial Arterial Blood Date Drawn 06/05/2017 9:50:36 AM Arterial Blood pH (Temp corrected) 7.433 Arterial Blood pCO2 (Temp correct) 27.6 L Arterial Blood pO2 (Temp corrected) 95.6 H Arterial Blood HCO3 18.0 L Arterial Blood Base Excess -5.1 L Arterial Blood Oxygen Saturation 97.2 Christopher Test ACCEPTAB Arterial Blood Gas Puncture Site Right Radial Arterial Blood Carboxyhemoglobin 0.3 Arterial Blood Methemoglobin 0.1 Blood Gas A-a O2 Differential 21.1 Oxyhemoglobin Percent 96.8 Total Hemoglobin 10.8 L Blood Gas Temperature 37.0 Blood Gas Modality ROOM AIR FiO2 21.0 Blood Gas Notified Whom JLD Blood Gas Notified Time 06/05/2017 10:02:59 AM Sodium Level 145 H Potassium Level 3.4 L Chloride Level 117 H Carbon Dioxide Level 21 Anion Gap 10 Blood Urea Nitrogen 30 #H Creatinine 1.25 H Glucose Level 110 Calcium Level 7.8 L Medications Medications Current Medications Dextrose/Sodium Chloride (D5-1/2ns) 1,000 ml @ 125 mls/hr Q8H IV Last administered on 06/05/17 05:39; Admin Dose 125 MLS/HR; Start 06/03/17 at 22: 43 Ondansetron HCl 4 mg 4 mg Q6H PRN IV NAUSEA AND/OR VOMITING; Start 06/03/17 at 23:00 Norepinephrine 16 mg/Dextrose 500 ml @ 1.87 mls/hr TITRATE IV Last administered on 06/04/17 08:14; Admin Dose 1.87 MLS/HR; Start 06/04/17 at 03: 00 Phenylephrine HCl 40 mg/Dextrose 500 ml @ 75 mls/hr TITRATE IV Last administered on 06/04/17 02:33; Admin Dose 37.5 MLS/HR; Start 06/04/17 at 01: 30 Heparin Sodium (Porcine) 250 ml @ 10 mls/hr Q24H IV Last administered on 06/05 11:11; Admin Dose 10 MLS/HR; Start 06/04/17 at 06:30 Vancomycin HCl 1.5 gm/Sodium Chloride 250 ml @ 83.333 mls/ hr Q36H IVPB ; Start 06/06/17 at 09:00 Piperacillin Sod/ Tazobactam Sod (Zosyn 2.25gm/ 50ml (Pmx)) 50 ml @ 200 mls/hr Q6 IVPB Last administered on 06/05/17 12:35; Admin Dose 200 MLS/HR; Start at 12:00 Pantoprazole (Protonix Iv) 40 mg DAILY@06 IV Last administered on 06/05/17 10 :28; Admin Dose 40 MG; Start 06/05/17 at 09:00 Fentanyl (Sublimaze) 50 mcg Q3H PRN IV PAIN; Start 06/05/17 at 11:30 HUNTER RAO MD Jun 05, 2017 15:26
--- NOTE | 2017-06-05 17:59 | PN ---
Date/Time of Note Date/Time of Note DATE: 06/05/17 TIME: 17:53 Assessment/Plan Lines/Catheters IV Catheter Type (from [facility]): Central Line Mcknight in Place (from [facility]): Yes Assessment/Plan Chief Complaint/Hosp Course 1. Lactic acidosis, bandemia, CT with ischemic colitis, with Sepsis. Patient has improved clinically with fluids, abx, and anticoagulation. -IV antibiotics -Aggressive IV fluids -Anticoagulation -If not improving or worsening, will consider surgery if conservator ok to proceed 2. Significant atherosclerosis and coronary artery disease -Patient high risk for any surgery -Cardiac optimization 3. Acute renal failure secondary to above -Aggressive and judicious fluid management -Renal -Try to avoid nephrotoxic agents if possible 4. Coffee-ground emesis with possible upper GI bleed -Close monitoring and transfuse as needed -PPI 5. Anemia with possible blood loss -As above 6. Dysrhythmia history -Optimize lytes -Rate control -Anticoagulation 7. Acute hypokalemia -Correct aggressively 8. Obesity with BMI 32 9. Alzheimer's dementia, schizophrenia (paranoid) -Medical and psychiatric optimization -Patient has a conservator but no family. 10. Hypoalbuminemia with hypocalcemia: nutritional +/- inflammation -optimize nutrition as able -as above 11. Left pl effusion vs. pna: -pulm toilet -supportive Thank you, Problems: Subjective 24 Hr Interval Summary Continues in ICU on one pressor (low dose). Arousable. Leukocytosis resolved. Tachycardia improved. Abdomen non-distended. Non-verbal indicators of pain not present. No reports of vomiting, sz, fevers. No cp or sob. Exam/Review of Systems Vital Signs Vitals Vital Signs Date Time Temp Pulse Resp B/P Pulse Ox O2 Delivery O2 Flow Rate FiO2 06/05/17 16:00 75 06/05/17 14:30 19 115/78 100 06/05/17 14:00 Room Air 06/05/17 12:00 98.1 06/03/17 22:25 2.0 Intake and Output 06/04/17 06/04/17 06/05/17 15:00 23:00 07:00 Intake Total 1866.84 ml 1905.16 ml 1710.86 ml Output Total 2210 ml 1835 ml 775 ml Balance -343.16 ml 70.16 ml 935.86 ml Exam Free Text/Dictation Constitutional: obese, arousable, No oriented Psych: confusion, nl mood/affect Head: atraumatic, normocephalic Eyes: PERRL, nl conjunctiva, No icteric ENMT: nl external ears & nose, No mucosa pink and moist Neck: jvd, non-tender, supple Respiratory: normal air movement, No congested cough, No labored breathing Cardiovascular: edema, uncontrolled/controlled afib. No regular rate and rhythm Gastrointestinal: min distended, soft, tender, No rebound or guarding Musculoskeletal: No joint tenderness, No nl extremities to inspection, No nl gait and stance Extremities: No calf tenderness, No cyanosis Neurological: No nl mental status, No nl strength Skin: No diaphoresis, No rash or lesions Lymph: nl lymph nodes, nontender Results Result Diagram: 06/05/17 0400 06/05/17 1222 DAVY MARTINES MD Jun 05, 2017 17:59
[2017-06-05 19:09] LABS: CREATININE 1.12 mg/dl (0.61-1.24); POTASSIUM 3.5 mmol/L (3.5-5.1)
[2017-06-05 19:51] LABS: EOSINOPHILS % (M) 1 % (0-7); GIANT THROMBO% (M) 2 % (0-0); MONOCYTES % (M) 13 % (0-11); PLATELET ESTIMATE NORMAL
[2017-06-05 22:10] LABS: CREATININE 1.1 mg/dl (0.61-1.24); POTASSIUM 3.7 mmol/L (3.5-5.1)
[2017-06-06] VITALS (71 sets, daily range): BP systolic 84–143; BP diastolic 47–109; PULSE 67–113; RESP 15–31
[2017-06-06] MEDS: PIPER-TAZO 2.25 GM (PMX) 50 ML IVPB SCH ×2 (00:03→05:33)
[2017-06-06 05:19] LABS: BASOPHILS % 0.4 % (0.0-2.0); EOSINOPHILS # 0.1 10^3/ul (0.0-0.5); EOSINOPHILS % 0.7 % (0.0-7.0); HEMATOCRIT 30.7 % (42.0-52.0); LYMPHOCYTES # 1.8 10^3/ul (0.8-2.9); LYMPHOCYTES % 25.6 % (15.0-51.0); MEAN CORPUSCULAR HEMOGLOBIN 27.8 pg (29.0-33.0); MEAN CORPUSCULAR HGB CONC 32.6 g/dl (32.0-37.0); MEAN CORPUSCULAR VOLUME 85.3 fl (82.0-101.0); MEAN PLATELET VOLUME 12.2 fl (7.4-10.4); MONOCYTE # 1.2 10^3/ul (0.3-0.9); MONOCYTES % 16.8 % (0.0-11.0); NEUTROPHIL # 3.8 10^3/ul (1.6-7.5); NEUTROPHILS % 53.3 % (39.0-77.0); NUCLEATED RED BLOOD CELLS% 0.3 /100WBC (0.0-0.0); PLATELET COUNT 175 10^3/UL (140-415); RED CELL DISTRIBUTION WIDTH 19.3 % (11.5-14.5); WHITE BLOOD COUNT 7.2 10^3/ul (4.8-10.8)
[2017-06-06] MEDS: PANTOPRAZOLE 40 MG INJ IV SCH (05:32)
[2017-06-06 05:45] LABS: CALCIUM 7.9 mg/dl (8.4-10.2); CREATININE 1.1 mg/dl (0.61-1.24); MAGNESIUM 1.7 mg/dl (1.7-2.5); PHOSPHORUS 1.8 mg/dl (2.5-4.9); POTASSIUM 3.8 mmol/L (3.5-5.1)
[2017-06-06 05:51] LABS: INR 1.32; PROTIME 16.5 Sec (12.2-14.2); PT RATIO 1.3
[2017-06-06] MEDS: DEXTROSE 5%-0.45% NACL 1,000 ML IV SCH ×3 (06:48→22:35)
[2017-06-06] MEDS: FENTAnyl 50 MCG/ML VIAL IV PRN (08:14)
[2017-06-06] MEDS ORDERED: VANCOMYCIN 1.5 GM in SOD CHLORIDE 0.9% 250 ML IVPB SCH (09:00)
--- NOTE | 2017-06-06 09:19 | PN ---
DATE: 06/06/2017 SUBJECTIVE: The patient remains in critical condition, but stable. No other events noted. No hemo ptysis, hematemesis or hematochezia. OBJECTIVE: VITAL SIGNS: Blood pressure is 118/81, respirations 26, pulse 78, temperature 98.3. HEENT: Head is normocephalic. NECK: Supple. HEART: Regular rate. LUNGS: Show diminished breath sounds at base. ABDOMEN: Soft, nontender to palpation. No rebound or guarding. EXTREMITIES: Negative for clubbing, cyanosis, edema. DERMATOLOGIC: No rashes. MUSCULOSKELETAL: No joint effusions. NEUROLOGIC: No change in exam. MEDICATIONS: The patient's medications have been reviewed. LABORATORY DATA: Shows a white count 7.2, hemoglobin 10.0, hematocrit 30.7, platelet count is 175. Sodium 142, potassium 3.8, chloride 114, bicarbonate 19, BUN 21, creatinine 1.0, phosphorus 1.8. ASSESSMENT AND PLAN: 1. Nonoliguric acute kidney injury with unknown baseline creatinine. Etiology is secondary to hemo dynamic sepsis. The patient's renal function has significantly improved. Continue current treatmen t plan, supportive care, renally dose all medicines. 2. Hyponatremia, improved. Continue to monitor. 3. Hyperkalemia, resolved. 4. Mineral bone disorder. The patient remains hypophosphatemic. We will replete potassium phospha te to 40 mEq IV x1. 5. Anemia. Monitor hemoglobin and hematocrit levels. 6. Septic shock, possibly due to ischemic colitis. Continue current medical management. Continue IV fluids, IV antibiotics. 7. Coronary artery disease. Continue current treatment plan. 8. Acute encephalopathy and Alzheimer dementia. Etiology is toxic metabolic. Continue to monitor. 9. Atrial fibrillation with rapid rate. Continue current treatment plan. Dictated By: GISELA GUARDADO/ALLEY Conf#: [id number] DID#: [id number]
[2017-06-06] MEDS ORDERED: POTASSIUM PHOSPHATE 40 MEQ in SOD CHLORIDE 0.9% 250 ML IVPB SCH (10:00)
[2017-06-06] MEDS: PIPER-TAZO 3.375 GM IV (PMX) 100 ML IVPB SCH ×3 (12:41→23:56)
[2017-06-06] MEDS: HEPARIN 25000 UNITS/D5W 250 ML IV SCH (14:24)
--- NOTE | 2017-06-06 14:57 | RADRPT ---
PROCEDURE: XR Abdomen. CLINICAL INDICATION: Abdominal distension and pain. Possible ischemic bowel. TECHNIQUE: AP abdomen x-ray. COMPARISON: CT abdomen pelvis 06/03/2017 FINDINGS: There is a nasogastric tube in place with tip extending into the stomach. There are multiple loops o f mildly distended small bowels throughout the abdomen. There is also mild-moderate distension of th e transverse colon. There is no evidence of free air.. The osseous structures are unremarkable. IMPRESSION: 1. Nasogastric tube in place. 2. Mild to moderate distension of multiple small bowel loops and transverse colon. Findings are sug gestive of distal colonic obstruction. In review of prior CT scan from 06/03/2017, there appears to be a focal narrowing and thickening at the proximal sigmoid colon in the left lower quadrant suggestive of circumferential sigmoid colon ma ss or tumor. This appears to be causing partial obstruction of the distal colon correlating to findi ngs on this abdominal radiograph. Recommend clinical correlation. Call report: A call report of the findings was made to Dr. Plata on 06/06/2017 2:42:57 PM. RPTAT: GG .Jones Hobson MD, MD Date Time Electronically viewed and signed by .Jones Hobson MD, MD on 06/06/2017 14:57 .L/
--- NOTE | 2017-06-06 15:33 | OPPN ---
Date/Time of Note Date/Time of Note DATE: 06/06/17 TIME: 15:27 Proc Note GI Procedure Date 06/06/17 Indication: other (Dyspepsia/G-tube removal) Pre-procedure Diagnosis Dyspepsia/G-tube removal Post-procedure Diagnosis Impression: Mild gastritis. Rule out H. pylori infection. Biopsies obtained Post uneventful gastrostomy tube removal Plan: Continue present regimen Review pathology Ostomy care . Procedure Performed: Endoscopy (Plus biopsies plus G-tube removal) Surgeon TA MESSINA MD See signature line Laboratory Associate none Anesthesia Type: MAC, other (Local) Anesthesiologist: SUKHDEEP LISA DO Tourniquet Time none EBL none Transfusion required none Biopsy 1: Gastric body and antrum/rule out H. pylori infection Grafts/Implants none Tubes/Drains none Complication(s) none Disposition: home Procedure Description Preoperative Diagnosis: After informed consent, with the patient/relatives understanding the procedure, its indications, potential risks and complications, including but not limited to : allergic reaction, bleeding, perforation or infection, and after all pertinent questions were answered to the patients satisfaction, the patient/ relatives signed witnessed informed consent. Following this, premedication was administered slowly IV push under careful cardiovascular and respiratory monitoring with pulse oximetry, automatic blood pressure, and chief engineer waterworks. Once the sedative effect was achieved the patient was place in the left lateral decubitus, the panendoscope was introduced and advanced under visual control. Careful examination of the upper gastrointestinal tract, both on insertion as well as withdrawal of the instrument disclosing the following findings: ESOPHAGUS: the mucosa of the entire esophagus was carefully examined and showed the following findings: the mucosa appears within normal limits. There is no evidence of esophagitis, varices, neoplasm, or stricture. No Hiatal Hernia identified. STOMACH: Upon entrance to the stomach air was insufflated, the gastric tim distended normally. The mucosa of the fundus, body and antrum of the stomach was carefully examined both head-on and on retroflexion, and showed the following findings: A gastrostomy tube is noted in the mid body of the stomach. It was removed without difficulty by securing it with a polypectomy snare and cautery the gastrostomy tube in the outside. The inner portion of the gastrostomy tube was then retrieved upon withdrawal of the instrument. There is erythema and edema in the because of a mild degree. Biopsies were obtained to rule out H. pylori infection. Otherwise the mucosa appears within normal limits with no abnormalities. There is no evidence of ulcers or neoplasm. PYLORUS: The pylorus was carefully examined and showed the following findings: the pylorus appears patent and within normal limits, with no evidence of gastric outlet obstruction. DUODENUM: The duodenal mucosa was carefully examined in the duodenal bulb as well as the second portion of the duodenum and showed the following findings: the mucosa appears unremarkable with no evidence of duodenitis, ulcer or neoplasm. Copies To: CC: TA MESSINA MD, MORDO MD Jun 06, 2017 15:33
--- NOTE | 2017-06-06 15:39 | OPPN ---
Date/Time of Note Date/Time of Note DATE: 06/06/17 TIME: 15:33 Proc Note GI Procedure Date 06/06/17 Indication: other (History of Crohn's disease/evaluation for reanastomosis) Pre-procedure Diagnosis History of Crohn's disease post colostomy Reevaluation for possible reanastomosis Post-procedure Diagnosis Impression: Colonoscopy via colostomy * No evidence of active colitis * Multitude of pseudopolyps. * Random biopsies obtained a sending colon, pseudopolyps, transverse colon, descending colon Colonoscopy via rectum * Procedure material in the rectum the mucosa appears unremarkable. * Moderate-sized internal hemorrhoids Plan: Review pathology as soon as available Continue present regimen with Delzicol 800 mg 3 times daily No contraindication to reanastomosis pending review of pathology . Procedure Performed: Colonoscopy (Via colostomy with biopsies and colonoscopy via rectum) Surgeon see signature line Printing Supplies Sales Representative none Anesthesia Type: MAC, other (Local) Anesthesiologist: SUKHDEEP LISA DO Tourniquet Time none EBL none Transfusion required none Biopsy 1: Ascending colon Biopsy 2: Colon pseudopolyps Biopsy 3: Transverse colon Additional Biopsy: Descending: Grafts/Implants none Tubes/Drains none Complication(s) none Disposition: home Procedure Description After informed consent, with the patient/relatives understanding the procedure, its indications and potential risks and complications, including but not limited to: Allergic reaction, bleeding, perforation, infection, and after all pertinent questions were answered to the patient's satisfaction, the patient/ relatives signed the witnessed informed consent. Following this, premedication was administered slowly IV push under careful cardiovascular and respiratory monitoring with pulse OXIMETRY, automatic blood pressure, and broadcast maintenance engineer. Once the sedative effect was achieved, the patient was placed in the left lateral decubitus position, digital rectal examination was performed. The colonoscopy was initially performed through the colostomy bag and subsequently through the rectum. The colonoscope was then introduced via colostomy and advanced under visual control throughout all segments of the colon including: descending colon, splenic flexure, transverse colon, hepatic flexure, ascending colon and finally reaching the cecum which was clearly identified by transillumination, finger indentation and the ileocecal valve. Subsequently the patient was placed in left lateral decubitus and the colonoscope was introduced through the rectum to the end of the residual rectum. Careful examination of the mucosa of the lower gastrointestinal tract both on insertion as well as withdrawal of the instrument disclosed the following findings: PREPARATION QUALITY: [Adequate], RECTAL EXAM: The anorectal area was visualized examined and digital rectal examination performed with the following findings: Deformity of the endorectal area. No evidence of perirectal disease, no masses. COLONIC MUCOSA: The mucosa of all segments of the colon was carefully examined and showed the following findings: Via colostomy the mucosa appears unremarkable with exception multitude of pseudopolyps. Multiple biopsies were obtained. The rectum the mucosa appears unremarkable some residual material is noted in the rectal vault. Moderate- sized internal hemorrhoids are present. Otherwise the examined mucosa appears within normal limits. There is no evidence of inflammatory changes, diverticular formation, other neoplasms, vascular malformation, or any other abnormality. The instrument was then withdrawn, the patient tolerated the procedure well and was transferred out of the Endoscopy Suite awake and in good condition to continue recovery under observation. Copies To: CC: TA MESSINA MD, MORDO MD Jun 06, 2017 15:39
--- NOTE | 2017-06-06 16:55 | PN ---
Date/Time of Note Date/Time of Note DATE: 06/06/17 TIME: 16:52 Assessment/Plan VTE Prophylaxis VTE Prophylaxis Intervention: LMWH Lines/Catheters IV Catheter Type (from Nrs): Central Line Central line still needed: Yes Urinary Cath still in place: Yes Reason Cath still needed: urinary retention Assessment/Plan Chief Complaint/Hosp Course 81 yo male with dementia who presented with SHAYNA, electrolyte derangments, septic shock and colitis. Originally thought to be ischemic colitis but on further review he more likely seems to have an obstructing sigmoid colon lesion which is a more consistent diagnosis with his clinical picture Colon obstruction: - NG tube for decompressoin given progressive abd distension with vomiting - Consider scope per Dr Davis Shock is resolved, he is off of pressors now Ischemic colitis likely not present Metabolic acidosis, hypokalemia, hypophosphatemia, hypernatremia, SHAYNA: - Replete K, PHos as needed - SHAYNA is resolving with fluids - Replace FW deficit Appreciate Dr Tong assistacne with goals of care Problems: Subjective 24 Hr Interval Summary Free Text/Dictation Increasing abdominal distension XR KUB shows likely obstruction Spoke with radiologist, suspects there is a sigmoid colon obstructing lesion there and less likely ischemic colitis Exam/Review of Systems Vital Signs Vitals Vital Signs Date Time Temp Pulse Resp B/P Pulse Ox O2 Delivery O2 Flow Rate FiO2 06/06/17 16:30 91 102/63 06/06/17 16:00 98.0 18 Room Air 06/06/17 14:30 97 06/05/17 20:00 3.0 Intake and Output 06/05/17 06/05/17 06/06/17 14:59 22:59 06:59 Intake Total 1186.21 ml 909.34 ml 1211.87 ml Output Total 370 ml 690 ml Balance 1186.21 ml 539.34 ml 521.87 ml Exam Alert, pleasant no distress Abdomen increasingly distended, soft without rebound Results Result Diagram: 06/06/170 06/06/17 0400 Results 24 hrs Laboratory Tests Test 06/05/17 18:26 06/05/17 21:35 06/06/17 04:00 06/06/17 13:11 Segmented Neutrophils % (Manual) 35 L Band Neutrophils % (Manual) 3 Lymphocytes % (Manual) 48 Monocytes % (Manual) 13 H Eosinophils % (Manual) 1 Platelet Estimate NORMAL Giant Platelets 2 H Activated Partial Thromboplast Time 66.3 H 75.0 *H 66.8 H Sodium Level 144 143 142 Potassium Level 3.5 3.7 3.8 Chloride Level 116 H 115 H 114 H Carbon Dioxide Level 21 19 L 19 L Anion Gap 11 13 13 Blood Urea Nitrogen 26 H 24 H 21 H Creatinine 1.12 1.10 1.10 Glucose Level 93 109 107 Calcium Level 8.0 L 8.0 L 7.9 L White Blood Count 7.2 Red Blood Count 3.60 L Hemoglobin 10.0 L Hematocrit 30.7 L Mean Corpuscular Volume 85.3 Mean Corpuscular Hemoglobin 27.8 L Mean Corpuscular Hemoglobin Concent 32.6 Red Cell Distribution Width 19.3 H Platelet Count 175 Mean Platelet Volume 12.2 H Neutrophils % 53.3 Lymphocytes % 25.6 Monocytes % 16.8 H Eosinophils % 0.7 Basophils % 0.4 Nucleated Red Blood Cells % 0.3 H Neutrophils # 3.8 Lymphocytes # 1.8 Monocytes # 1.2 H Eosinophils # 0.1 Basophils # 0.0 Nucleated Red Blood Cells # 0.0 Prothrombin Time 16.5 H Prothrombin Time Ratio 1.3 INR International Normalized Ratio 1.32 Phosphorus Level 1.8 L Magnesium Level 1.7 Medications Medications Current Medications Dextrose/Sodium Chloride (D5-1/2ns) 1,000 ml @ 125 mls/hr Q8H IV Last administered on 06/06/17 15:08; Admin Dose 125 MLS/HR; Start 06/03/17 at 22: 43 Ondansetron HCl 4 mg 4 mg Q6H PRN IV NAUSEA AND/OR VOMITING Last administered on 06/06/17 07:57; Admin Dose 4 MG; Start 06/03/17 at 23:00 Norepinephrine 16 mg/Dextrose 500 ml @ 1.87 mls/hr TITRATE IV Last administered on 06/04/17 08:14; Admin Dose 1.87 MLS/HR; Start 06/04/17 at 03: 00 Phenylephrine HCl 40 mg/Dextrose 500 ml @ 75 mls/hr TITRATE IV Last administered on 06/04/17 02:33; Admin Dose 37.5 MLS/HR; Start 06/04/17 at 01: 30 Heparin Sodium (Porcine) (Heparin 13600 Units/250 ml) 250 ml @ 10 mls/hr Q24H IV Last administered on 06/06/17 14:24; Admin Dose 9 MLS/HR; Start 06/04/17 at 06:30 Pantoprazole (Protonix Iv) 40 mg DAILY@06 IV Last administered on 06/06/17 05 :32; Admin Dose 40 MG; Start 06/05/17 at 09:00 Fentanyl 50 mcg 50 mcg Q3H PRN IV PAIN Last administered on 06/06/17 08:14; Admin Dose 50 MCG; Start 06/05/17 at 11:30 Piperacillin Sod/ Tazobactam Sod (Zosyn 3.375gm/ 100 ml (Pmx)) 100 ml @ 200 mls /hr Q6 IVPB Last administered on 06/06/17 12:41; Admin Dose 200 MLS/HR; Start 06/06/17 at 12:00 HUNTER RAO MD Jun 06, 2017 16:55
--- NOTE | 2017-06-06 17:25 | PN ---
Date/Time of Note Date/Time of Note DATE: 06/06/17 TIME: 17:19 Assessment/Plan VTE Prophylaxis VTE Prophylaxis Intervention: SCD's Lines/Catheters IV [facility] Type (from [facility]): Central Line Central line still needed: Yes Urinary Cath still in place: Yes Reason Cath still needed: other (indicate) (Monitor output) Assessment/Plan Assessment/Plan Assessment: Suspected pneumatosis/most likely ischemic colitis New finding raising question of rectal mass/obstruction This however would not explain initial presentation and findings on right side of her colon Alzheimer's dementia Hypokalemia/ treated improved Plan: Continue present regimen as the patient appears to be improving CT abdomen and pelvis with rectal contrast to assess distal colon as well as right colon Colonoscopy will be considered pending results, will need to stop anticoagulation prior to procedure Continue antibiotics and pain management Subjective: Course reviewed with nursing staff Patient interviewed and examined All labs, imaging and other results reviewed The patient appears more comfortable He has been off pressors now No bowel movements Remains distended with a tender abdomen Exam: General: well developed, well nourished, alert, confused Skin: No lesions, no stigmata chronic liver disease, no evidence of bleeding diathesis Lymphatic: No palpable lymphadenopathy HEENT: No lesions Cardiovascular: Heart: Regular rate and rhythm, no murmurs, gallops or rubs. Peripheral pulses present within normal limits, no cyanosis, clubbing or edemas. No pulsatile abdominal mass Respiratory: Lungs clear to auscultation and percussion, no wheezing, no rubs Gastrointestinal and Liver: Abdomen: Soft, moderate diffuse tenderness more so in the lower abdomen bilaterally, moderately distended, no hernias, no masses, no organomegaly, no ascites, no guarding, no rebound tenderness, hypoactive bowel sounds. Extremities: No cyanosis, clubbing, or edema. Diagnostic Studies: Available data and images were reviewed personally. See reports. Significant results and findings are addressed here or in the assessment and plan. Exam/Review of Systems Vital Signs Vitals Vital Signs Date Time Temp Pulse Resp B/P Pulse Ox O2 Delivery O2 Flow Rate FiO2 06/06/17 16:30 91 102/63 06/06/17 16:00 98.0 18 Room Air 06/06/17 14:30 97 06/05/17 20:00 3.0 Intake and Output 06/05/17 06/05/17 06/06/17 15:00 23:00 07:00 Intake Total 1182.46 ml 909.34 ml 1207.12 ml Output Total 470 ml 590 ml Balance 1182.46 ml 439.34 ml 617.12 ml Results Result Diagram: 06/06/17 0400 06/06/17 0400 Results 24 hrs Laboratory Tests Test 06/05/17 18:26 06/05/17 21:35 06/06/17 04:00 06/06/17 13:11 Segmented Neutrophils % (Manual) 35 L Band Neutrophils % (Manual) 3 Lymphocytes % (Manual) 48 Monocytes % (Manual) 13 H Eosinophils % (Manual) 1 Platelet Estimate NORMAL Giant Platelets 2 H Activated Partial Thromboplast Time 66.3 H 75.0 *H 66.8 H Sodium Level 144 143 142 Potassium Level 3.5 3.7 3.8 Chloride Level 116 H 115 H 114 H Carbon Dioxide Level 21 19 L 19 L Anion Gap 11 13 13 Blood Urea Nitrogen 26 H 24 H 21 H Creatinine 1.12 1.10 1.10 Glucose Level 93 109 107 Calcium Level 8.0 L 8.0 L 7.9 L White Blood Count 7.2 Red Blood Count 3.60 L Hemoglobin 10.0 L Hematocrit 30.7 L Mean Corpuscular Volume 85.3 Mean Corpuscular Hemoglobin 27.8 L Mean Corpuscular Hemoglobin Concent 32.6 Red Cell Distribution Width 19.3 H Platelet Count 175 Mean Platelet Volume 12.2 H Neutrophils % 53.3 Lymphocytes % 25.6 Monocytes % 16.8 H Eosinophils % 0.7 Basophils % 0.4 Nucleated Red Blood Cells % 0.3 H Neutrophils # 3.8 Lymphocytes # 1.8 Monocytes # 1.2 H Eosinophils # 0.1 Basophils # 0.0 Nucleated Red Blood Cells # 0.0 Prothrombin Time 16.5 H Prothrombin Time Ratio 1.3 INR International Normalized Ratio 1.32 Phosphorus Level 1.8 L Magnesium Level 1.7 Medications Medications Current Medications Dextrose/Sodium Chloride (D5-1/2ns) 1,000 ml @ 125 mls/hr Q8H IV Last administered on 06/06/17 15:08; Admin Dose 125 MLS/HR; Start 06/03/17 at 22: 43 Ondansetron HCl 4 mg 4 mg Q6H PRN IV NAUSEA AND/OR VOMITING Last administered on 06/06/17 07:57; Admin Dose 4 MG; Start 06/03/17 at 23:00 Norepinephrine 16 mg/Dextrose 500 ml @ 1.87 mls/hr TITRATE IV Last administered on 06/04/17 08:14; Admin Dose 1.87 MLS/HR; Start 06/04/17 at 03: 00 Phenylephrine HCl/ Dextrose (Jc-Syneph/D5W) 500 ml @ 75 mls/hr TITRATE IV Last administered on 06/04/17 02:33; Admin Dose 37.5 MLS/HR; Start 06/04/17 at 01:30 Fentanyl 50 mcg 50 mcg Q3H PRN IV PAIN Last administered on 06/06/17 08:14; Admin Dose 50 MCG; Start 06/05/17 at 11:30 Piperacillin Sod/ Tazobactam Sod (Zosyn 3.375gm/ 100 ml (Pmx)) 100 ml @ 200 mls /hr Q6 IVPB Last administered on 06/06/17 12:41; Admin Dose 200 MLS/HR; Start 06/06/17 at 12:00 TA MESSINA MD Jun 06, 2017 17:25
[2017-06-06] MEDS ORDERED: BARIUM SULF 2% 450 ML BTL (BERRY SMOOTHIE) PO ONE (17:30)
--- NOTE | 2017-06-06 19:56 | PN ---
Date/Time of Note Date/Time of Note DATE: 06/06/17 TIME: 19:54 Assessment/Plan Lines/Catheters IV Catheter Type (from [facility]): Central Line Mcknight in Place (from Nrs): Yes Assessment/Plan Chief Complaint/Hosp Course 1. Lactic acidosis, bandemia, CT with ischemic colitis, with Sepsis. Patient has improved clinically with fluids, abx, and anticoagulation. -IV antibiotics -Aggressive IV fluids -Anticoagulation > held per gi -CT 2. Significant atherosclerosis and coronary artery disease -Patient high risk for any surgery -Cardiac optimization 3. Acute renal failure secondary to above -Aggressive and judicious fluid management -Renal -Try to avoid nephrotoxic agents if possible 4. Coffee-ground emesis with possible upper GI bleed -Close monitoring and transfuse as needed -PPI 5. Anemia with possible blood loss -As above 6. Dysrhythmia history -Optimize lytes -Rate control -Anticoagulation 7. Acute hypokalemia -Correct aggressively 8. Obesity with BMI 32 9. Alzheimer's dementia, schizophrenia (paranoid) -Medical and psychiatric optimization -Patient has a conservator but no family. 10. Hypoalbuminemia with hypocalcemia: nutritional +/- inflammation -optimize nutrition as able -as above 11. Left pl effusion vs. pna -pulm toilet -supportive Thank you, Problems: Subjective 24 Hr Interval Summary Continues in ICU but off pressor. Awake. No pain. Leukocytosis resolved. Tachycardia improved. No reports of vsz, fevers, chills, rashes. No cp or sob. No bowel movements. Min vomiting s/p ngt and kub > ? colonic mass. Patient for CT in am. Exam/Review of Systems Vital Signs Vitals Vital Signs Date Time Temp Pulse Resp B/P Pulse Ox O2 Delivery O2 Flow Rate FiO2 06/06/17 18:30 87 27 101/59 06/06/17 18:00 97 Room Air 06/06/17 16:00 98.0 06/05/17 20:00 3.0 Intake and Output 06/05/17 06/05/17 06/06/17 15:00 23:00 07:00 Intake Total 1182.46 ml 909.34 ml 1207.12 ml Output Total 470 ml 590 ml Balance 1182.46 ml 439.34 ml 617.12 ml Exam Free Text/Dictation Constitutional: obese, arousable, No oriented Psych: confusion, nl mood/affect Head: atraumatic, normocephalic Eyes: PERRL, nl conjunctiva, No icteric ENMT: nl external ears & nose, No mucosa pink and moist Neck: jvd, non-tender, supple Respiratory: normal air movement, No congested cough, No labored breathing Cardiovascular: edema, uncontrolled/controlled afib. No regular rate and rhythm Gastrointestinal: min distended, soft, tender, No rebound or guarding Musculoskeletal: No joint tenderness, No nl extremities to inspection, No nl gait and stance Extremities: No calf tenderness, No cyanosis Neurological: No nl mental status, No nl strength Skin: No diaphoresis, No rash or lesions Lymph: nl lymph nodes, nontender Results Result Diagram: 06/06/1739906/06/17399 DAVY MARTINES MD Jun 06, 2017 19:56
[2017-06-07] VITALS (31 sets, daily range): BP systolic 80–163; BP diastolic 52–111; PULSE 81–110; RESP 18–34
[2017-06-07 02:25] LABS: POTASSIUM 2.3 mmol/L (3.5-5.1)
[2017-06-07] MEDS: PIPER-TAZO 3.375 GM IV (PMX) 100 ML IVPB SCH ×4 (05:23→23:20)
[2017-06-07] MEDS: PANTOPRAZOLE 40 MG INJ IV SCH (06:00)
[2017-06-07 06:23] LABS: BASOPHILS % 0.2 % (0.0-2.0); EOSINOPHILS % 0.3 % (0.0-7.0); HEMATOCRIT 32.2 % (42.0-52.0); HEMOGLOBIN 10.3 g/dl (14.0-18.0); LYMPHOCYTES # 1.5 10^3/ul (0.8-2.9); LYMPHOCYTES % 16.8 % (15.0-51.0); MEAN CORPUSCULAR VOLUME 84.3 fl (82.0-101.0); MEAN PLATELET VOLUME 12.1 fl (7.4-10.4); MONOCYTE # 1.4 10^3/ul (0.3-0.9); MONOCYTES % 16.4 % (0.0-11.0); NEUTROPHIL # 5.4 10^3/ul (1.6-7.5); NEUTROPHILS % 62.1 % (39.0-77.0); NUCLEATED RED BLOOD CELLS% 0.2 /100WBC (0.0-0.0); PLATELET COUNT 193 10^3/UL (140-415); RED BLOOD COUNT 3.82 10^6/ul (4.70-6.10); RED CELL DISTRIBUTION WIDTH 19.9 % (11.5-14.5); WHITE BLOOD COUNT 8.7 10^3/ul (4.8-10.8)
[2017-06-07] MEDS: DEXTROSE 5%-0.45% NACL 1,000 ML IV SCH ×3 (06:46→22:43)
[2017-06-07 06:57] LABS: MAGNESIUM 1.6 mg/dl (1.7-2.5); PHOSPHORUS 3.3 mg/dl (2.5-4.9)
[2017-06-07 07:05] LABS: ALBUMIN 2.7 g/dl (3.3-4.9); ALBUMIN/GLOBULIN RATIO 0.96; BILIRUBIN,INDIRECT 0.9 mg/dl (0-1.1); BILIRUBIN,TOTAL 0.9 mg/dl (0.2-1.3); CALCIUM 7.8 mg/dl (8.4-10.2); CREATININE 1.54 mg/dl (0.61-1.24); POTASSIUM 4.5 mmol/L (3.5-5.1); TOTAL PROTEIN 5.5 g/dl (6.1-8.1)
[2017-06-07] MEDS ORDERED: VANCOMYCIN 1.5 GM in SOD CHLORIDE 0.9% 250 ML IVPB SCH (08:00)
[2017-06-07] MEDS ORDERED: MAGNESIUM SULFATE 2 GM/50 ML 50 ML IVPB ONE (08:30)
[2017-06-07] MEDS ORDERED: IOHEXOL 300MG/ML 150 ML BTL ONE (08:38)
--- NOTE | 2017-06-07 10:39 | RADRPT ---
AMENDMENT: 06/07/2017 10:45:42 AM Jones Hobson M.d Call report: A call report of the findings was made to ICU nurse Joy with instructions to Dr. Almas gutierrez on 06/07/2017 10:45:23 AM. PROCEDURE: CT Abdomen and Pelvis without intravenous contrast. CLINICAL INDICATION: Abdominal distension. Rule out bowel ischemia, pneumatosis intestinalis or co lonic mass. . TECHNIQUE: CT scan of the abdomen and pelvis without intravenous contrast was performed on a multi -slice CT scanner. Rectal contrast was administered although most of the contrast leaked around the rectal tube during exam. Coronal and sagittal reformatted images were obtained from the axial source images. Images were reviewed on a high-resolution PACS workstation. Total DLP = 1472.7 mGy-cm. CTDIvol = 22.6 mGy. One or more of the following dose reduction techniques were used: Automated exposure control. Adjustment of the mA and/or kV according to patient size. Use of iterative reconstruction technique. COMPARISON: None. FINDINGS: CT abdomen and pelvis: The lung bases are clear of alveolar infiltrates or masses. There are trace bilateral pleural effusi ons and minimal bibasilar atelectasis.. The heart size is normal size with calcific atherosclerosis of the coronary arteries.. The liver is normal in size and density without focal mass or intrahepa tic biliary dilatation. The spleen is normal in size with homogeneous density. There are small gran ulomatous calcifications within the spleen.. The pancreas as visualized is normal. The gallbladde r has been removed. The adrenal glands are normal. The kidneys are mildly atrophic. There is a 4.3 cm right renal cyst. There is no evidence of obstructive uropathy or urolithiasis.. The stomach is partially collapsed, but is grossly unremarkable. There is a nasogastric tube seen wi th tip extending into the stomach.. The small bowels demonstrates increased moderate fluid distensio n throughout the abdomen.. There is also fluid distension of the colon involving the right, transver se and descending colon. There is a circumferential focal thickening and narrowing or mass of the pr oximal sigmoid colon in the left lower quadrant which appears to be the cause of obstructive finding s. The mass measures 5.3 cm in length. The previously questioned pneumatosis is no longer identified and may have been artifactual. There is no significant colonic edema to suggest ischemic colitis. T here is a rectal contrast seen within decompressed distal sigmoid colon and rectum to the level of t he sigmoid mass. A few scattered sigmoid diverticula are present. .. The prostate is normal in size. . The bladder is decompressed with balloon tip Mcknight catheter in place.. There is no abdominal or pelvic adenopathy, free fluid, free air, mass or mesenteric inflammation. The aorta is normal in caliber with calcific atherosclerosis . The osseous structures showing degen erative enthesopathy of the spine. There is mild compression fracture of the L1 vertebra.. There are no osteolytic or osteoblastic lesions identified. The soft tissues are within normal limits. Lack of IV and oral contrast limits sensitivity of exam. IMPRESSION: 1. Circumferential colonic mass or tumor at the proximal sigmoid colon causing increasing bowel obs truction and fluid distension of the more proximal colon and small bowels. 2. No evidence of ischemic colitis. Previously questioned colonic pneumatosis is no longer identifi ed and may have been artifactual. There is no evidence of colonic edema to suggest ischemic colitis. 3. Status post cholecystectomy. RPTAT: QQ Call report: A call report of the findings was made to patient's nurse Carlton with instructions to notify Dr. Davis on 06/07/2017 10:35:58 AM. .Jones Hobson MD, Date Time Electronically viewed and signed by .Jones Hobson MD, MD on 06/07/2017 10:45 .L/
--- NOTE | 2017-06-07 10:47 | PN ---
DATE: 06/07/2017 SUBJECTIVE: The patient is stable but critical. The patient is pending CT scan of the abdomen. No other events noted. OBJECTIVE: VITAL SIGNS: Blood pressure 107/59, pulse 108, respirations 25. HEENT: Head is normocephalic. NECK: Supple. HEART: Regular rate. LUNGS: Show diminished breath sounds at base. ABDOMEN: Soft, positive tenderness to palpation. Positive distention. EXTREMITIES: Negative for clubbing, cyanosis, no edema. DERMATOLOGIC: No rashes. MUSCULOSKELETAL: No joint effusions. NEUROLOGIC: No change in exam. MEDICATIONS: The patient's medications have been reviewed. LABORATORY DATA: Shows white count 8.7, hemoglobin 10.3, hematocrit 32.2, platelet count is 193. S odium 144, potassium 4.5, chloride 113, BUN 27, creatinine 1.54. ASSESSMENT AND PLAN: 1. Nonoliguric acute kidney injury with unknown baseline creatinine. Etiology is secondary to sept ic acute kidney injury, hemodynamics. Patient's renal function initially improved; however, in the last 24 hours, creatinine has increased to 1.5 mg/dL. At this point, would continue current treatme nt plan, supportive care, renally dose all meds, avoid nephrotoxins. Continue IV hydration and anti biotic therapy. Monitor closely. 2. Hyponatremia, improved. 3. Hypokalemia, resolved. 4. Mineral bone disease. Continue to monitor calcium and phosphorus levels. 5. Anemia. Monitor hemoglobin and hematocrit levels. 6. Sepsis status post shock secondary to possible ischemic colitis versus mass. Continue medical ma nagement. Continue IV fluids, IV antibiotics and follow up CT scan of the abdomen. 7. Questionable abdominal mass. The patient has CT scan pending. 8. Coronary artery disease. Continue medical management. 9. Acute encephalopathy and Alzheimer dementia. Etiology is toxic metabolic. Continue to monitor. 10. Atrial fibrillation with rate. Continue current medical management. Dictated By: GISELA GUARDADO/ALLEY Conf#: [id number] DID#: [id number]
--- NOTE | 2017-06-07 11:20 | CONS ---
Date/Time of Note Date/Time of Note DATE: 06/07/17 TIME: 11:17 Assessment/Plan Assessment/Plan Chief Complaint/Hosp Course Problems: Additional Assessment/Plan Results of abdominal CT scan shows a large mass in the distal colon. I have put a phone call out to patient's primary care physician and to Dr. Zhang. If the consensus is no further aggressive care that conservator will need to be contacted for change in CODE STATUS to comfort measures. Consultation Date/Type/Reason Admit Date/Time Jun 03, 2017 at 20:38 Initial Consult Date 06/03/17 Type of Consultation: Palliative care Referring Provider: LOUIE CHUA MD Exam/Review of Systems Vital Signs Vitals Vital Signs Date Time Temp Pulse Resp B/P Pulse Ox O2 Delivery O2 Flow Rate FiO2 06/07/17 08:00 105 06/07/17 07:30 25 107/59 100 06/07/17 07:00 Room Air 06/07/17 04:00 99.4 06/05/17 20:00 3.0 Intake and Output 06/06/17 06/06/17 06/07/17 15:00 23:00 07:00 Intake Total 770 ml 1100 ml 1200 ml Output Total 240 ml 210 ml 254 ml Balance 530 ml 890 ml 946 ml Exam Gastrointestinal: other (Grossly distended all 4 quadrants, no bowel sounds can be appreciated without rebound or peritoneal signs) Neurological: other (Answers but garbled responses difficult to understand, definitely shakes his head when asked if he is uncomfortable.) Results Result Diagram: 06/07/17 0430 06/07/17 0430 Results 24 hrs Laboratory Tests Test 06/06/17 13:11 06/07/17 04:30 Activated Partial Thromboplast Time 66.8 H White Blood Count 8.7 # Red Blood Count 3.82 L Hemoglobin 10.3 L Hematocrit 32.2 L Mean Corpuscular Volume 84.3 Mean Corpuscular Hemoglobin 27.0 L Mean Corpuscular Hemoglobin Concent 32.0 Red Cell Distribution Width 19.9 H Platelet Count 193 Mean Platelet Volume 12.1 H Neutrophils % 62.1 Lymphocytes % 16.8 Monocytes % 16.4 H Eosinophils % 0.3 Basophils % 0.2 Nucleated Red Blood Cells % 0.2 H Neutrophils # 5.4 Lymphocytes # 1.5 Monocytes # 1.4 H Eosinophils # 0.0 Basophils # 0.0 Nucleated Red Blood Cells # 0.0 Sodium Level 144 Potassium Level 4.5 Chloride Level 113 H Carbon Dioxide Level 19 L Anion Gap 17 H Blood Urea Nitrogen 27 H Creatinine 1.54 H Glucose Level 104 Calcium Level 7.8 L Phosphorus Level 3.3 Magnesium Level 1.6 L Total Bilirubin 0.9 Direct Bilirubin 0.00 Indirect Bilirubin 0.9 Aspartate Amino Transf (AST/SGOT) 19 Alanine Aminotransferase (ALT/SGPT) 26 Alkaline Phosphatase 61 Total Protein 5.5 L Albumin 2.7 L Globulin 2.80 Albumin/Globulin Ratio 0.96 Medications Medications Current Medications Dextrose/Sodium Chloride (D5-1/2ns) 1,000 ml @ 125 mls/hr Q8H IV Last administered on 06/07/17 06:46; Admin Dose 125 MLS/HR; Start 06/03/17 at 22: 43 Ondansetron HCl 4 mg 4 mg Q6H PRN IV NAUSEA AND/OR VOMITING Last administered on 06/06/17 07:57; Admin Dose 4 MG; Start 06/03/17 at 23:00 Norepinephrine 16 mg/Dextrose 500 ml @ 1.87 mls/hr TITRATE IV Last administered on 06/04/17 08:14; Admin Dose 1.87 MLS/HR; Start 06/04/17 at 03: 00 Phenylephrine HCl/ Dextrose (Jc-Syneph/D5W) 500 ml @ 75 mls/hr TITRATE IV Last administered on 06/04/17 02:33; Admin Dose 37.5 MLS/HR; Start 06/04/17 at 01:30 Fentanyl 50 mcg 50 mcg Q3H PRN IV PAIN Last administered on 06/06/17 08:14; Admin Dose 50 MCG; Start 06/05/17 at 11:30 Piperacillin Sod/ Tazobactam Sod (Zosyn 3.375gm/ 100 ml (Pmx)) 100 ml @ 200 mls /hr Q6 IVPB Last administered on 06/07/17 05:23; Admin Dose 200 MLS/HR; Start 06/06/17 at 12:00 Pantoprazole (Protonix Iv) 40 mg DAILY@06 IV Last administered on 06/07/17 06 :00; Admin Dose 40 MG; Start 06/07/17 at 06:00 KIMI WOOD Jun 07, 2017 11:20
--- NOTE | 2017-06-07 15:26 | PN ---
Date/Time of Note Date/Time of Note DATE: 06/07/17 TIME: 15:24 Assessment/Plan VTE Prophylaxis VTE Prophylaxis Intervention: LMWH Lines/Catheters IV Catheter Type (from Nrs): Central Line Central line still needed: Yes Urinary Cath still in place: Yes Reason Cath still needed: urinary retention Assessment/Plan Chief Complaint/Hosp Course 81 yo male with dementia who presented with SHAYNA, electrolyte derangments, septic shock and colitis. 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 Hospice will be most likley option but no proxy to make decisions for him Problems: Subjective 24 Hr Interval Summary Free Text/Dictation CT imaging confirming sigmoid mass in colon No evidence of ischemic colitis Patient stable NG tube draining, no complaints of pain Lots of ectopy on tele, runs of V Tach Exam/Review of Systems Vital Signs Vitals Vital Signs Date Time Temp Pulse Resp B/P Pulse Ox O2 Delivery O2 Flow Rate FiO2 06/07/17 12:00 92 06/07/17 07:30 25 107/59 100 06/07/17 07:00 Room Air 06/07/17 04:00 99.4 06/05/17 20:00 3.0 Intake and Output 06/06/17 06/06/17 06/07/17 15:00 23:00 07:00 Intake Total 770 ml 1100 ml 1200 ml Output Total 240 ml 210 ml 254 ml Balance 530 ml 890 ml 946 ml Exam Alert, disoriented RRR with ectopy Lungs clear Abd distended, soft, minimally tender No edema Results Result Diagram: 06/07/17 0430 06/07/17 0430 Results 24 hrs Laboratory Tests Test 06/07/17 04:30 White Blood Count 8.7 # Red Blood Count 3.82 L Hemoglobin 10.3 L Hematocrit 32.2 L Mean Corpuscular Volume 84.3 Mean Corpuscular Hemoglobin 27.0 L Mean Corpuscular Hemoglobin Concent 32.0 Red Cell Distribution Width 19.9 H Platelet Count 193 Mean Platelet Volume 12.1 H Neutrophils % 62.1 Lymphocytes % 16.8 Monocytes % 16.4 H Eosinophils % 0.3 Basophils % 0.2 Nucleated Red Blood Cells % 0.2 H Neutrophils # 5.4 Lymphocytes # 1.5 Monocytes # 1.4 H Eosinophils # 0.0 Basophils # 0.0 Nucleated Red Blood Cells # 0.0 Sodium Level 144 Potassium Level 4.5 Chloride Level 113 H Carbon Dioxide Level 19 L Anion Gap 17 H Blood Urea Nitrogen 27 H Creatinine 1.54 H Glucose Level 104 Calcium Level 7.8 L Phosphorus Level 3.3 Magnesium Level 1.6 L Total Bilirubin 0.9 Direct Bilirubin 0.00 Indirect Bilirubin 0.9 Aspartate Amino Transf (AST/SGOT) 19 Alanine Aminotransferase (ALT/SGPT) 26 Alkaline Phosphatase 61 Total Protein 5.5 L Albumin 2.7 L Globulin 2.80 Albumin/Globulin Ratio 0.96 Medications Medications Current Medications Dextrose/Sodium Chloride (D5-1/2ns) 1,000 ml @ 125 mls/hr Q8H IV Last administered on 06/07/17 06:46; Admin Dose 125 MLS/HR; Start 06/03/17 at 22: 43 Ondansetron HCl 4 mg 4 mg Q6H PRN IV NAUSEA AND/OR VOMITING Last administered on 06/06/17 07:57; Admin Dose 4 MG; Start 06/03/17 at 23:00 Norepinephrine 16 mg/Dextrose 500 ml @ 1.87 mls/hr TITRATE IV Last administered on 06/04/17 08:14; Admin Dose 1.87 MLS/HR; Start 06/04/17 at 03: 00 Phenylephrine HCl/ Dextrose (Jc-Syneph/D5W) 500 ml @ 75 mls/hr TITRATE IV Last administered on 06/04/17 02:33; Admin Dose 37.5 MLS/HR; Start 06/04/17 at 01:30 Fentanyl 50 mcg 50 mcg Q3H PRN IV PAIN Last administered on 06/06/17 08:14; Admin Dose 50 MCG; Start 06/05/17 at 11:30 Piperacillin Sod/ Tazobactam Sod (Zosyn 3.375gm/ 100 ml (Pmx)) 100 ml @ 200 mls /hr Q6 IVPB Last administered on 06/07/17 12:56; Admin Dose 200 MLS/HR; Start 06/06/17 at 12:00 Pantoprazole 40 mg 40 mg DAILY@06 IV Last administered on 06/07/17 06:00; Admin Dose 40 MG; Start 06/07/17 at 06:00 Amiodarone HCl 900 mg/Dextrose 500 ml @ 0 mls/hr Q0M IV ; Start 06/07/17 at 15: 30; Stop 06/08/17 at 15:29; Status UNV Amiodarone HCl (Cordarone 150mg/ D5W Bolus) 100 ml @ 600 mls/hr ONCE ONCE IV ; Start 06/07/17 at 15:30; Stop 06/07/17 at 15:39; Status UNV HUNTER RAO MD Jun 07, 2017 15:26
[2017-06-07] MEDS ORDERED: METOPROLOL (XL) 25 MG TAB PO SCH (15:30)
[2017-06-07] MEDS ORDERED: AMIODARONE 150MG/D5W BOLUS 100 ML IV ONE (15:30)
[2017-06-07] MEDS ORDERED: AMIODARONE 900 MG in DEXTROSE 5% 482 ML IV SCH (15:30)
--- NOTE | 2017-06-07 15:47 | PN ---
Date/Time of Note Date/Time of Note DATE: 06/07/17 TIME: 15:38 Assessment/Plan VTE Prophylaxis VTE Prophylaxis Intervention: SCD's Lines/Catheters IV Catheter Type (from Nrs): Central Line Central line still needed: Yes (medication) Urinary Cath still in place: Yes Reason Cath still needed: other (indicate) (monitor out-put) Assessment/Plan Chief Complaint/Hosp Course Assessment: Sigmoid mass- identifed on 2nd Ct scan Previously Suspected pneumatosis/ likely related to Ischemic colitis- no long identified Alzheimer's dementia Hypokalemia/ treated improved Arrhythmia- 24 beats of v-tach today Plan: Pt with 24 beats of V-tach- remains in ICU on drip Will need a cardiac clearance before can procedure with colonoscopy Pt seen in collaboration with Dr. Davis Subjective: Course reviewed with nursing staff Patient interviewed and examined All labs, imaging and other results reviewed The patient remains in ICU currently considered too high risk to proceed with colonoscopy Will need cardiac clearance prior to colonoscopy Reevaluation of CT with rectal contrast revealed sigmoid colon mass- leading to increasing bowel obstruction and no evidence of ischemic colitis as previous thought. Exam: General: well developed, well nourished, alert, confused Skin: No lesions, no stigmata chronic liver disease, no evidence of bleeding diathesis Lymphatic: No palpable lymphadenopathy HEENT: No lesions Cardiovascular: Heart: Had 24 beats of v-tach, no cyanosis, clubbing or edemas. No pulsatile abdominal mass Respiratory: dimished Gastrointestinal and Liver: Abdomen: Soft, moderate diffuse tenderness more so in the lower abdomen bilaterally, moderately distended, no hernias, no masses, no organomegaly, no ascites, no guarding, no rebound tenderness, hypoactive bowel sounds. Extremities: No cyanosis, clubbing, or edema. Problems: Exam/Review of Systems Vital Signs Vitals Vital Signs Date Time Temp Pulse Resp B/P Pulse Ox O2 Delivery O2 Flow Rate FiO2 06/07/17 12:00 92 06/07/17 07:30 25 107/59 100 06/07/17 07:00 Room Air 06/07/17 04:00 99.4 06/05/17 20:00 3.0 Intake and Output 06/06/17 06/06/17 06/07/17 15:00 23:00 07:00 Intake Total 770 ml 1100 ml 1200 ml Output Total 240 ml 210 ml 254 ml Balance 530 ml 890 ml 946 ml Results Result Diagram: 06/07/17 0430 06/07/17 0430 Results 24 hrs Laboratory Tests Test 06/07/17 04:30 White Blood Count 8.7 # Red Blood Count 3.82 L Hemoglobin 10.3 L Hematocrit 32.2 L Mean Corpuscular Volume 84.3 Mean Corpuscular Hemoglobin 27.0 L Mean Corpuscular Hemoglobin Concent 32.0 Red Cell Distribution Width 19.9 H Platelet Count 193 Mean Platelet Volume 12.1 H Neutrophils % 62.1 Lymphocytes % 16.8 Monocytes % 16.4 H Eosinophils % 0.3 Basophils % 0.2 Nucleated Red Blood Cells % 0.2 H Neutrophils # 5.4 Lymphocytes # 1.5 Monocytes # 1.4 H Eosinophils # 0.0 Basophils # 0.0 Nucleated Red Blood Cells # 0.0 Sodium Level 144 Potassium Level 4.5 Chloride Level 113 H Carbon Dioxide Level 19 L Anion Gap 17 H Blood Urea Nitrogen 27 H Creatinine 1.54 H Glucose Level 104 Calcium Level 7.8 L Phosphorus Level 3.3 Magnesium Level 1.6 L Total Bilirubin 0.9 Direct Bilirubin 0.00 Indirect Bilirubin 0.9 Aspartate Amino Transf (AST/SGOT) 19 Alanine Aminotransferase (ALT/SGPT) 26 Alkaline Phosphatase 61 Total Protein 5.5 L Albumin 2.7 L Globulin 2.80 Albumin/Globulin Ratio 0.96 Medications Medications Current Medications Dextrose/Sodium Chloride (D5-1/2ns) 1,000 ml @ 125 mls/hr Q8H IV Last administered on 06/07/17 06:46; Admin Dose 125 MLS/HR; Start 06/03/17 at 22: 43 Ondansetron HCl 4 mg 4 mg Q6H PRN IV NAUSEA AND/OR VOMITING Last administered on 06/06/17 07:57; Admin Dose 4 MG; Start 06/03/17 at 23:00 Norepinephrine 16 mg/Dextrose 500 ml @ 1.87 mls/hr TITRATE IV Last administered on 06/04/17 08:14; Admin Dose 1.87 MLS/HR; Start 06/04/17 at 03: 00 Phenylephrine HCl/ Dextrose (Jc-Syneph/D5W) 500 ml @ 75 mls/hr TITRATE IV Last administered on 06/04/17 02:33; Admin Dose 37.5 MLS/HR; Start 06/04/17 at 01:30 Fentanyl 50 mcg 50 mcg Q3H PRN IV PAIN Last administered on 06/06/17 08:14; Admin Dose 50 MCG; Start 06/05/17 at 11:30 Piperacillin Sod/ Tazobactam Sod (Zosyn 3.375gm/ 100 ml (Pmx)) 100 ml @ 200 mls /hr Q6 IVPB Last administered on 06/07/17 12:56; Admin Dose 200 MLS/HR; Start 06/06/17 at 12:00 Pantoprazole 40 mg 40 mg DAILY@06 IV Last administered on 06/07/17 06:00; Admin Dose 40 MG; Start 06/07/17 at 06:00 Amiodarone HCl 900 mg/Dextrose 500 ml @ 0 mls/hr Q0M IV ; Start 06/07/17 at 15: 30; Stop 06/08/17 at 15:29 Amiodarone HCl (Cordarone 150mg/ D5W Bolus) 100 ml @ 600 mls/hr ONCE ONCE IV ; Start 06/07/17 at 15:30; Stop 06/07/17 at 15:39 Metoprolol Succinate (Toprol Xl) 25 mg DAILY PO ; Start 06/07/17 at 15:30 JOSS ESPINOSA Jun 07, 2017 15:47
--- NOTE | 2017-06-07 18:15 | PN ---
Date/Time of Note Date/Time of Note DATE: 06/07/17 TIME: 18:07 Assessment/Plan Lines/Catheters IV Catheter Type (from [facility]): Central Line Mcknight in Place (from [facility]): Yes Assessment/Plan Chief Complaint/Hosp Course 1. Lactic acidosis, bandemia, CT with ischemic colitis, with Sepsis. Patient has improved clinically with fluids, abx, and anticoagulation. CT: no ischemic bowel, circumferential colon mass -IV antibiotics -IV fluids -Anticoagulation > held per gi -colonoscopy pending 2. Significant atherosclerosis and coronary artery disease -Patient high risk for any surgery -Cardiac optimization 3. Acute renal failure secondary to above: cr up -Aggressive and judicious fluid management -Renal -Try to avoid nephrotoxic agents if possible 4. Coffee-ground emesis with possible upper GI bleed -Close monitoring and transfuse as needed -PPI 5. Anemia with possible blood loss -As above 6. Dysrhythmia history -Optimize lytes -Rate control -Anticoagulation 7. Acute hypokalemia -Correct aggressively 8. Obesity with BMI 32 9. Alzheimer's dementia, schizophrenia (paranoid) -Medical and psychiatric optimization -Patient has a conservator but no family. 10. Hypoalbuminemia with hypocalcemia: nutritional +/- inflammation -optimize nutrition as able -as above 11. Left pl effusion vs. pna -pulm toilet -supportive Thank you. Patient seen and examined in collaboration with Dr. Felton Zhang. Problems: Subjective 24 Hr Interval Summary Colon mass per CT. Pending colonoscopy. Episode of vtach- now on amio drip. No fevers, chills, sob, congested cough, cp, palpitations, n/v/d/dysuria. Exam/Review of Systems Vital Signs Vitals Vital Signs Date Time Temp Pulse Resp B/P Pulse Ox O2 Delivery O2 Flow Rate FiO2 06/07/17 16:00 98 06/07/17 07:30 25 107/59 100 06/07/17 07:00 Room Air 06/07/17 04:00 99.4 06/05/17 20:00 3.0 Intake and Output 06/06/17 06/06/17 06/07/17 15:00 23:00 07:00 Intake Total 770 ml 1100 ml 1200 ml Output Total 240 ml 210 ml 254 ml Balance 530 ml 890 ml 946 ml Exam Free Text/Dictation Constitutional: obese, awake, No oriented Psych: confusion, nl mood/affect Head: atraumatic, normocephalic Eyes: PERRL, nl conjunctiva, No icteric ENMT: nl external ears & nose, No mucosa pink and moist Neck: jvd, non-tender, supple Respiratory: normal air movement, No congested cough, No labored breathing Cardiovascular: edema, uncontrolled/controlled afib/bigeminy. No regular rate and rhythm Gastrointestinal: min distended, soft, tender, No rebound or guarding Musculoskeletal: No joint tenderness, No nl extremities to inspection, No nl gait and stance Extremities: No calf tenderness, No cyanosis Neurological: No nl mental status, No nl strength Skin: No diaphoresis, No rash or lesions Lymph: nl lymph nodes, nontender Results Result Diagram: 06/07/1742906/07/17429 BABS ROSE NP Jun 07, 2017 18:15
[2017-06-08] VITALS (51 sets, daily range): BP systolic 61–145; BP diastolic 41–116; PULSE 71–103; RESP 15–37
[2017-06-08] MEDS: DEXTROSE 5%-0.45% NACL 1,000 ML IV SCH ×2 (03:47→14:43)
[2017-06-08 04:50] LABS: BASOPHILS % 0.1 % (0.0-2.0); EOSINOPHILS # 0.1 10^3/ul (0.0-0.5); EOSINOPHILS % 0.8 % (0.0-7.0); HEMATOCRIT 31.1 % (42.0-52.0); LYMPHOCYTES # 1.2 10^3/ul (0.8-2.9); LYMPHOCYTES % 14.6 % (15.0-51.0); MEAN CORPUSCULAR HEMOGLOBIN 27.4 pg (29.0-33.0); MEAN CORPUSCULAR HGB CONC 32.2 g/dl (32.0-37.0); MEAN CORPUSCULAR VOLUME 85.2 fl (82.0-101.0); MONOCYTE # 1.3 10^3/ul (0.3-0.9); MONOCYTES % 15.3 % (0.0-11.0); NEUTROPHIL # 5.6 10^3/ul (1.6-7.5); NEUTROPHILS % 66.4 % (39.0-77.0); PLATELET COUNT 189 10^3/UL (140-415); RED BLOOD COUNT 3.65 10^6/ul (4.70-6.10); RED CELL DISTRIBUTION WIDTH 19.9 % (11.5-14.5); WHITE BLOOD COUNT 8.5 10^3/ul (4.8-10.8)
[2017-06-08 05:18] LABS: MAGNESIUM 2.2 mg/dl (1.7-2.5)
[2017-06-08] MEDS: PANTOPRAZOLE 40 MG INJ IV SCH (05:39)
[2017-06-08] MEDS: PIPER-TAZO 3.375 GM IV (PMX) 100 ML IVPB SCH ×3 (05:39→19:47)
[2017-06-08 06:04] LABS: ALBUMIN 2.3 g/dl (3.3-4.9); ALBUMIN/GLOBULIN RATIO 0.79; BILIRUBIN,INDIRECT 0.6 mg/dl (0-1.1); BILIRUBIN,TOTAL 0.6 mg/dl (0.2-1.3); CALCIUM 7.8 mg/dl (8.4-10.2); CREATININE 1.4 mg/dl (0.61-1.24); POTASSIUM 3.5 mmol/L (3.5-5.1); TOTAL PROTEIN 5.2 g/dl (6.1-8.1)
[2017-06-08] MEDS ORDERED: POTASSIUM CHLORIDE 250 ML IVPB ONE (08:30)
--- NOTE | 2017-06-08 09:20 | PN ---
DATE: 06/08/2017 SUBJECTIVE: The patient remains critically ill on amiodarone drip. The patient had a CT scan of th e abdomen and pelvis which showed findings of a colonic mass or tumor in sigmoid colon. No other ev ents noted. The patient remains altered. OBJECTIVE: VITAL SIGNS: Blood pressure is 145/55, respirations 27, pulse 82, temperature 98.3. HEENT: Head is normocephalic. NECK: Supple. HEART: Regular rate. LUNGS: Show diminished breath sounds at base. ABDOMEN: Soft, nontender to palpation. No rebound or guarding. EXTREMITIES: Negative for clubbing, cyanosis, no edema. DERMATOLOGIC: No rashes. MUSCULOSKELETAL: No joint effusions. NEUROLOGIC: No change in exam. MEDICATIONS: The patient's medications have been reviewed. LABORATORY DATA: Shows white count 8.5, hemoglobin 10.0, hematocrit 31.1, platelet count 189. Sodi um 141, potassium 3.5, BUN 24, creatinine 1.4. ASSESSMENT AND PLAN: 1. Nonoliguric acute kidney injury with unknown baseline creatinine. Etiology secondary to acute k idney injury and hemodynamics. The patient's renal function has been fluctuating, stable in the las t 24 hours. At this point, continue current treatment plan, supportive care, renally dose all meds, avoid nephrotoxins. 2. Hyponatremia, improved. 3. Mineral bone disorder. Continue to monitor calcium and phosphorus levels. 4. Hyperkalemia, resolved. 5. Anemia. Monitor hemoglobin and hematocrit levels. 6. Sepsis, status post shock secondary to possible pneumonia. The patient is off pressors. Contin ue antibiotics, IV fluids. 7. Sigmoid mass concerning for neoplasm, continue to monitor. Defer to primary team. Possible bio ethics meeting. 8. Coronary artery disease. Continue medical management. 9. Acute encephalopathy and Alzheimer dementia. Etiology is toxic metabolic. 10. Atrial fibrillation with rapid rate. Continue current treatment plan. Dictated By: GISELA GUARDADO/ALLEY Conf#: [id number] DID#: [id number]
--- NOTE | 2017-06-08 09:55 | RADRPT ---
Echocardiogram Report Patient Name: ISIDRO LESLIE Gender: Male Date: 1935 Study Date: 07-Jun-2017 Electrophysiology Nurse Practitioner: JOMAR [facility] Location: [address] Ref. Physician: HUNTER RAO Quality: Adequate Procedures: Transthoracic echocardiogram with complete 2D, M-Mode, and doppler examination. Indications: VTACH. 2D/M Mode Doppler Measurement Value Normal Ranges Measurement Value Normal Ranges AoR Diam MM 3.6 cm JOSE Vmax 1.2 cm2 LA/Ao MM 1.2 JOSE VTI 1.2 cm2 LA Dimen MM 4.2 cm AV Mean Antonio 2.2 m/sec LVIDd 2D 4.1 3.5 - 5.6 cm AV Mean PG 20.6 mmHg LVIDs 2D 2.9 2.1 - 4.1 cm AV Peak Antonio 2.9 m/sec LVPWd 2D 1.6 0.6 - 1.1 cm AV Peak PG 34.2 mmHg IVSd 2D 1.6 0.6 - 1.1 cm AV VTI 52.6 cm EDV 2D 73.5 cm3 LVOT Peak Antonio 1.1 m/sec ESV 2D 25.5 cm3 LVOT Peak PG 5.2 mmHg LA Dimen 2D 4.2 2.3 - 4.0 cm MV E Peak Antonio 0.5 m/sec LVOT Diam 1.9 cm MV A Peak Antonio 1.2 m/sec MV E/A 0.4 MV Decel Time 121 msec MV Decel Riley 4 MV E/A 0.4 TR Peak Antonio 2.5 m/sec TR Peak PG 32.0 mmHg RVSP 35.0 mmHg Findings Left Ventricle: Normal left ventricular systolic function. Moderate concentric left ventricular hypertrophy. Ejection fraction is visually estimated at 55 %. Tissue Doppler/Mitral Doppler indices are consistent with impaired relaxation (Stage I diastolic dysfunction). Mild hypokinesis of the distal septum, anterior wall, and apex. Right Ventricle: Normal right ventricular size. Normal right ventricular systolic function. Left Atrium: There is mild enlargement of left atrium. Right Atrium: The right atrium is normal in size. Mitral Valve: Mild mitral leaflet calcification. Mild mitral annular calcification. Mild mitral valve regurgitation. Aortic Valve: Mild to moderate aortic stenosis. Aortic valve Max velocity 2.93 m/sec. Max PG 34.20 mmHg. Mean PG 20.60 mmHg. Aortic valve area 1.20 cm2. Mild aortic valve regurgitation. Tricuspid Valve: Normal appearance of the tricuspid valve. Estimated peak PA systolic pressure 35 mmHg. There is mild tricuspid regurgitation. Pulmonic Valve: Pulmonic valve not well visualized. There is trace pulmonic regurgitation. Pericardium: Normal pericardium with no significant pericardial effusion. Aorta: Normal aortic root. IVC: Normal size and normal respiratory collapse consistent with normal right atrial pressure. Conclusions Technically difficult study with poor endocardial visualization. Normal left ventricular systolic function. Moderate concentric left ventricular hypertrophy. Ejection fraction is visually estimated at 55 %. Tissue Doppler/Mitral Doppler indices are consistent with impaired relaxation (Stage I diastolic dysfunction). Mild hypokinesis of the distal septum, anterior wall, and apex. Mild to moderate aortic stenosis. Aortic valve Max velocity 2.93 m/sec. Max PG 34.20 mmHg. Mean PG 20. Estimated peak PA systolic pressure 35 mmHg based on RA pressure of 3 mmHg. Electronically Signed By: Grupo Lee 08-Jun-2017 09:55:14 -[id number] Patient Name: ISIDRO LESLIE Study Date: 07-Jun-2017 [id number]
--- NOTE | 2017-06-08 10:10 | CONS ---
Date/Time of Note Date/Time of Note DATE: 06/08/17 TIME: 09:57 Assessment/Plan Assessment/Plan Chief Complaint/Hosp Course NSVT: Had 24 beats of monomorphic, nonsustained VT 06/07. EF is preserved though LAD territory wall motion abnormalities. Also had a mild NSTEMI and definitely has underlying CAD. Mg was low at 1.6 and K is low this am which are also contributing. He has not had recurrence on amio drip. NSTEMI: Trop up to 1.4 and downtrended on admission. Still likely type II in setting of septic shock and renal failure. Certainly has underlying CAD but he is not a cath candidate. No e/o CHF by exam. Sigmoid mass with bowel obstruction: awaiting colonoscopy Acute renal failure: Resolved but now worse over last 2 days Septic shock: now resolved and off pressors H/o CAD with unknown details Dementia Schizophrenia -continue amiodarone at 0.5mg/min until can tolerate PO -start IV metopolol 2.5mg q6h to help control NSVT, switch to PO when able -replete lytes, keep Mg >2, K >4 -can do rectal ASA if able -if no further NSVT for 24 hours (isolated PVCs are ok), ok to proceed with colonoscopy tomorrow as otherwise no other active cardiac issues and colonoscopy is a low risk procedure. - Problems: Consultation Date/Type/Reason Admit Date/Time Jun 03, 2017 at 20:38 Date of Consultation: Jun 08, 2017 Type of Consultation: Cardiology Reason for Consultation NSVT, NSTEMI Referring Provider: HUNTER RAO MD Hx of Present Illness 81 yo M with a h/o CAD (unknown details), dementia, paranoid schizophrenia, who presented from his assisted living facility due to coffee ground emesis. He was found to have septic shock and was initially thought to have ischemic bowel. He was also noted to have an NSTEMI with trop up to 1.4 and downtrended. He had acute renal failure which has since significantly improved but slightly worse over the last few days. His shock resolved and CT eventually showed an obstructive sigmoid mass. Yesterday he was noted to have frequent ectopy and he also had a 24 beat run of NSVT without hemodynamic compromise. The pt was started on an amiodarone drip and has not had recurrence. This am, the pt remains hemodynamically stable, NG tube is to suction due to his bowel obstruction. He is not able to offer any information though he is alert and responsive. Unable to obtain due to pt;s condition. Psychological: confusion Past Medical History per HPI Social History Smoking Status: Unknown if ever smoked Exam/Review of Systems Vital Signs Vitals Vital Signs Date Time Temp Pulse Resp B/P Pulse Ox O2 Delivery O2 Flow Rate FiO2 06/08/17 06:00 82 27 145/55 98 Room Air 06/08/17 04:00 98.3 06/05/17 20:00 3.0 Intake and Output 06/07/17 06/07/17 06/08/17 15:00 23:00 07:00 Intake Total 250 ml 615.63 ml 1191.41 ml Output Total 425 ml 350 ml 1310 ml Balance -175 ml 265.63 ml -118.59 ml Exam Constitutional: alert, No distress, No oriented Psych: confusion Head: atraumatic, normocephalic Neck: supple, No jvd Respiratory: diminished breath sounds, No clear to auscultation, No crackles/rales Cardiovascular: regular rate and rhythm, systolic murmur (2/6 CORRINA), No edema Gastrointestinal: non-tender, soft Musculoskeletal: nl extremities to inspection Neurological: nl speech, No nl mental status Skin: No rash or lesions Results EKG on admission showed sinus tachycardia, PVCs,mild anterolateral ST depression. Result Diagram: 06/08/175 06/08/17 0425 Results 24 hrs Laboratory Tests Test 06/08/17 04:25 06/08/17 05:46 White Blood Count 8.5 Red Blood Count 3.65 L Hemoglobin 10.0 L Hematocrit 31.1 L Mean Corpuscular Volume 85.2 Mean Corpuscular Hemoglobin 27.4 L Mean Corpuscular Hemoglobin Concent 32.2 Red Cell Distribution Width 19.9 H Platelet Count 189 Mean Platelet Volume 11.0 H Neutrophils % 66.4 Lymphocytes % 14.6 L Monocytes % 15.3 H Eosinophils % 0.8 Basophils % 0.1 Nucleated Red Blood Cells % 0.0 Neutrophils # 5.6 Lymphocytes # 1.2 Monocytes # 1.3 H Eosinophils # 0.1 Basophils # 0.0 Nucleated Red Blood Cells # 0.0 Sodium Level 141 Potassium Level 3.5 Chloride Level 114 H Carbon Dioxide Level 21 Anion Gap 10 # Blood Urea Nitrogen 24 H Creatinine 1.40 H Glucose Level 121 Calcium Level 7.8 L Phosphorus Level 3.0 Magnesium Level 2.2 Total Bilirubin 0.6 Direct Bilirubin 0.00 Indirect Bilirubin 0.6 Aspartate Amino Transf (AST/SGOT) 18 Alanine Aminotransferase (ALT/SGPT) 22 Alkaline Phosphatase 56 Total Protein 5.2 L Albumin 2.3 L Globulin 2.90 Albumin/Globulin Ratio 0.79 Lab Scanned Report REFERENCE LAB Medications Medications Current Medications Dextrose/Sodium Chloride (D5-1/2ns) 1,000 ml @ 125 mls/hr Q8H IV Last administered on 06/08/17 03:47; Admin Dose 125 MLS/HR; Start 06/03/17 at 22: 43 Ondansetron HCl 4 mg 4 mg Q6H PRN IV NAUSEA AND/OR VOMITING Last administered on 06/06/17 07:57; Admin Dose 4 MG; Start 06/03/17 at 23:00 Norepinephrine 16 mg/Dextrose 500 ml @ 1.87 mls/hr TITRATE IV Last administered on 06/04/17 08:14; Admin Dose 1.87 MLS/HR; Start 06/04/17 at 03: 00 Phenylephrine HCl/ Dextrose (Jc-Syneph/D5W) 500 ml @ 75 mls/hr TITRATE IV Last administered on 06/04/17 02:33; Admin Dose 37.5 MLS/HR; Start 06/04/17 at 01:30 Fentanyl 50 mcg 50 mcg Q3H PRN IV PAIN Last administered on 06/06/17 08:14; Admin Dose 50 MCG; Start 06/05/17 at 11:30 Piperacillin Sod/ Tazobactam Sod (Zosyn 3.375gm/ 100 ml (Pmx)) 100 ml @ 200 mls /hr Q6 IVPB Last administered on 06/08/17 05:39; Admin Dose 200 MLS/HR; Start 06/06/17 at 12:00 Pantoprazole 40 mg 40 mg DAILY@06 IV Last administered on 06/08/17 05:39; Admin Dose 40 MG; Start 06/07/17 at 06:00 Amiodarone HCl/ Dextrose (Cordarone Iv/ D5W) 500 ml @ 0 mls/hr Q0M IV Last administered on 06/07/17 16:44; Admin Dose 33 MLS/HR; Start 06/07/17 at 15:30 ; Stop 06/08/17 at 15:29 Metoprolol Succinate 25 mg 25 mg DAILY PO ; Start 06/07/17 at 15:30; Status Future Hold Potassium Chloride (KCl 40 MEQ/250 ML NS) 250 ml @ 62.5 mls/hr ONCE ONCE IVPB Last administered on 06/08/17 09:03; Admin Dose 62.5 MLS/HR; Start at 08:30; Stop 06/08/17 at 12:29 JULIA MCGARRY Jun 08, 2017 10:08
[2017-06-08] MEDS ORDERED: AMIODARONE 900 MG in DEXTROSE 5% 482 ML IV SCH (12:00)
[2017-06-08] MEDS: METOPROLOL 5 MG INJ IV SCH ×2 (12:37→19:48)
--- NOTE | 2017-06-08 12:52 | PN ---
Date/Time of Note Date/Time of Note DATE: 06/08/17 TIME: 12:50 Assessment/Plan VTE Prophylaxis VTE Prophylaxis Intervention: LMWH Lines/Catheters IV Catheter Type (from Nrs): Central Line Central line still needed: Yes Urinary Cath still in place: Yes Reason Cath still needed: urinary retention Assessment/Plan Chief Complaint/Hosp Course 81 yo male with dementia who presented with SHAYNA, electrolyte derangments, septic shock and colitis. 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 Hospice will be most likley option but no proxy to make decisions for him Problems: Subjective 24 Hr Interval Summary Free Text/Dictation NG tube to suction, still with some bilious emesis, stomach less disended, minimal pain Started on amio drip for NSVT, HD stable Pending colonoscopy Exam/Review of Systems Vital Signs Vitals Vital Signs Date Time Temp Pulse Resp B/P Pulse Ox O2 Delivery O2 Flow Rate FiO2 06/08/17 11:30 98 34 112/73 90 06/08/17 11:00 99.0 06/08/17 06:00 Room Air 06/05/17 20:00 3.0 Intake and Output 06/07/17 06/07/17 06/08/17 15:00 23:00 07:00 Intake Total 250 ml 615.63 ml 1191.41 ml Output Total 425 ml 350 ml 1310 ml Balance -175 ml 265.63 ml -118.59 ml Exam Alert, disoriented, dementia RRR Lungs clear Abdomen distended, but soft and nontender Results Result Diagram: 06/08/17 0425 06/08/17 0425 Results 24 hrs Laboratory Tests Test 06/08/17 04:25 06/08/17 05:46 White Blood Count 8.5 Red Blood Count 3.65 L Hemoglobin 10.0 L Hematocrit 31.1 L Mean Corpuscular Volume 85.2 Mean Corpuscular Hemoglobin 27.4 L Mean Corpuscular Hemoglobin Concent 32.2 Red Cell Distribution Width 19.9 H Platelet Count 189 Mean Platelet Volume 11.0 H Neutrophils % 66.4 Lymphocytes % 14.6 L Monocytes % 15.3 H Eosinophils % 0.8 Basophils % 0.1 Nucleated Red Blood Cells % 0.0 Neutrophils # 5.6 Lymphocytes # 1.2 Monocytes # 1.3 H Eosinophils # 0.1 Basophils # 0.0 Nucleated Red Blood Cells # 0.0 Sodium Level 141 Potassium Level 3.5 Chloride Level 114 H Carbon Dioxide Level 21 Anion Gap 10 # Blood Urea Nitrogen 24 H Creatinine 1.40 H Glucose Level 121 Calcium Level 7.8 L Phosphorus Level 3.0 Magnesium Level 2.2 Total Bilirubin 0.6 Direct Bilirubin 0.00 Indirect Bilirubin 0.6 Aspartate Amino Transf (AST/SGOT) 18 Alanine Aminotransferase (ALT/SGPT) 22 Alkaline Phosphatase 56 Total Protein 5.2 L Albumin 2.3 L Globulin 2.90 Albumin/Globulin Ratio 0.79 Lab Scanned Report REFERENCE LAB Medications Medications Current Medications Dextrose/Sodium Chloride (D5-1/2ns) 1,000 ml @ 125 mls/hr Q8H IV Last administered on 06/08/17 03:47; Admin Dose 125 MLS/HR; Start 06/03/17 at 22: 43 Ondansetron HCl 4 mg 4 mg Q6H PRN IV NAUSEA AND/OR VOMITING Last administered on 06/06/17 07:57; Admin Dose 4 MG; Start 06/03/17 at 23:00 Norepinephrine 16 mg/Dextrose 500 ml @ 1.87 mls/hr TITRATE IV Last administered on 06/04/17 08:14; Admin Dose 1.87 MLS/HR; Start 06/04/17 at 03: 00 Phenylephrine HCl/ Dextrose (Jc-Syneph/D5W) 500 ml @ 75 mls/hr TITRATE IV Last administered on 06/04/17 02:33; Admin Dose 37.5 MLS/HR; Start 06/04/17 at 01:30 Fentanyl 50 mcg 50 mcg Q3H PRN IV PAIN Last administered on 06/06/17 08:14; Admin Dose 50 MCG; Start 06/05/17 at 11:30 Piperacillin Sod/ Tazobactam Sod (Zosyn 3.375gm/ 100 ml (Pmx)) 100 ml @ 200 mls /hr Q6 IVPB Last administered on 06/08/17 05:39; Admin Dose 200 MLS/HR; Start 06/06/17 at 12:00 Pantoprazole (Protonix Iv) 40 mg DAILY@06 IV Last administered on 06/08/17 05 :39; Admin Dose 40 MG; Start 06/07/17 at 06:00 Metoprolol Succinate (Toprol Xl) 25 mg DAILY PO ; Start 06/07/17 at 15:30; Status Future Hold Metoprolol Tartrate 2.5 mg 2.5 mg Q6 IV Last administered on 06/08/17 12:37; Admin Dose 2.5 MG; Start 06/08/17 at 12:00 Amiodarone HCl/ Dextrose (Cordarone Iv/ D5W) 500 ml @ 0 mls/hr Q0M IV ; Start 06/08/17 at 12:00; Stop 06/09/17 at 11:59 HUNTER RAO MD Jun 08, 2017 12:52
--- NOTE | 2017-06-08 12:58 | PN ---
Date/Time of Note Date/Time of Note DATE: 06/08/17 TIME: 12:47 Assessment/Plan Lines/Catheters IV Catheter Type (from [facility]): Central Line Mcknight in Place (from [facility]): Yes Assessment/Plan Chief Complaint/Hosp Course 1. Lactic acidosis, bandemia, CT with ischemic colitis, with Sepsis. Patient has improved clinically with fluids, abx, and anticoagulation. CT: no ischemic bowel, circumferential colon mass; improving -IV antibiotics -IV fluids -Anticoagulation > held per gi -colonoscopy pending -ethics committee pending -cont ng 2. Significant atherosclerosis and coronary artery disease -Patient high risk for any surgery -Cardiac optimization 3. Acute renal failure secondary to above: cr improving -Aggressive and judicious fluid management -Renal -Try to avoid nephrotoxic agents if possible 4. Coffee-ground emesis with possible upper GI bleed: h/h stable, no acute bleed from ng -Close monitoring and transfuse as needed -PPI 5. Anemia with possible blood loss -As above 6. Dysrhythmia history -Optimize lytes -Rate control -Anticoagulation 7. Acute hypokalemia: normalized 8. Obesity with BMI 32 9. Alzheimer's dementia, schizophrenia (paranoid) -Medical and psychiatric optimization -Patient has a conservator but no family. 10. Hypoalbuminemia with hypocalcemia: nutritional +/- inflammation -optimize nutrition as able -as above 11. Left pl effusion vs. pna -pulm toilet -supportive Thank you. Patient seen and examined in collaboration with Dr. Felton Zhang. Problems: Subjective 24 Hr Interval Summary Continues on amio drip. Intermittent bigeminy. Large bilious ng output. No fevers, chills, sob, congested cough, vomiting, sz. Bloated. No bowel function today Exam/Review of Systems Vital Signs Vitals Vital Signs Date Time Temp Pulse Resp B/P Pulse Ox O2 Delivery O2 Flow Rate FiO2 06/08/17 11:30 98 34 112/73 90 06/08/17 11:00 99.0 06/08/17 06:00 Room Air 06/05/17 20:00 3.0 Intake and Output 06/07/17 06/07/17 06/08/17 15:00 23:00 07:00 Intake Total 250 ml 615.63 ml 1191.41 ml Output Total 425 ml 350 ml 1310 ml Balance -175 ml 265.63 ml -118.59 ml Exam Free Text/Dictation Constitutional: obese, awake, No oriented Psych: confusion, nl mood/affect Head: atraumatic, normocephalic Eyes: PERRL, nl conjunctiva, No icteric ENMT: nl external ears & nose, No mucosa pink and moist Neck: jvd, non-tender, supple Respiratory: crackles, normal air movement, No congested cough, No labored breathing Cardiovascular: edema, sr- bigeminy. regular rate and rhythm Gastrointestinal: mod distended, non tender, No rebound or guarding Musculoskeletal: No joint tenderness, No nl extremities to inspection, No nl gait and stance Extremities: No calf tenderness, No cyanosis Neurological: No nl mental status, No nl strength Skin: No diaphoresis, No rash or lesions Lymph: nl lymph nodes, nontender Results Result Diagram: 06/08/17 0425 06/08/17 0425 BABS ROSE NP Jun 08, 2017 12:57
--- NOTE | 2017-06-08 14:06 | CONS ---
Date/Time of Note Date/Time of Note DATE: 06/08/17 TIME: 13:58 Assessment/Plan Assessment/Plan Chief Complaint/Hosp Course Impression: 1. Lactic acidosis, bandemia, Patient has improved clinically with fluids, abx , and anticoagulation. CT: no ischemic bowel, circumferential colon mass 2. sigmoid mass with colonic obstruction, NG with bilious output 3. Significant atherosclerosis and coronary artery disease 4. Acute renal failure secondary to above: cr improving 5. Coffee-ground emesis with possible upper GI bleed: h/h stable, no acute bleed from ng 6. Obesity with BMI 32 7. Alzheimer's dementia, schizophrenia (paranoid) 8. moderate protein calorie malnutrition. Recommendation: 1. will hold off colonoscopy until clear cardiac clearance and after ethics meeting 2. Additionally, I am not even sure if patient can tolerate a bowel prep as there may be obstruction due to colonic mass 3. Patient has a conservator but no family. I cannot get a hold of conservator at time of f/u. 4. optimize nutrition as able 5. continue all supportive care 6. If absolute need for colonoscopy over the weekend, please call me to discuss. My cell is [phone] Problems: Consultation Date/Type/Reason Admit Date/Time Jun 03, 2017 at 20:38 Initial Consult Date 06/08/17 Type of Consultation: GI Referring Provider: HUNTER RAO MD 24 HR Interval Summary Free Text/Dictation Continues on amio drip. Intermittent bigeminy. Large bilious ng output. No fevers, chills, sob, congested cough, vomiting, sz. Bloated. No bowel function today Exam/Review of Systems Vital Signs Vitals Vital Signs Date Time Temp Pulse Resp B/P Pulse Ox O2 Delivery O2 Flow Rate FiO2 06/08/17 12:45 83 33 100 06/08/17 12:30 120/65 06/08/17 11:00 99.0 06/08/17 06:00 Room Air 06/05/17 20:00 3.0 Intake and Output 06/07/17 06/07/17 06/08/17 15:00 23:00 07:00 Intake Total 250 ml 615.63 ml 1191.41 ml Output Total 425 ml 350 ml 1310 ml Balance -175 ml 265.63 ml -118.59 ml Exam Head: atraumatic, normocephalic Eyes: EOMI, nl conjunctiva, nl lids ENMT: nl external ears & nose, nl lips & teeth Neck: non-tender, supple Respiratory: clear to auscultation, normal air movement Cardiovascular: nl pulses, regular rate and rhythm Gastrointestinal: bowel sounds, non-tender, soft Musculoskeletal: nl extremities to inspection, nl gait and stance Results Result Diagram: 06/08/17 0425 06/08/17 0425 Results 24 hrs Laboratory Tests Test 06/08/17 04:25 06/08/17 05:46 White Blood Count 8.5 Red Blood Count 3.65 L Hemoglobin 10.0 L Hematocrit 31.1 L Mean Corpuscular Volume 85.2 Mean Corpuscular Hemoglobin 27.4 L Mean Corpuscular Hemoglobin Concent 32.2 Red Cell Distribution Width 19.9 H Platelet Count 189 Mean Platelet Volume 11.0 H Neutrophils % 66.4 Lymphocytes % 14.6 L Monocytes % 15.3 H Eosinophils % 0.8 Basophils % 0.1 Nucleated Red Blood Cells % 0.0 Neutrophils # 5.6 Lymphocytes # 1.2 Monocytes # 1.3 H Eosinophils # 0.1 Basophils # 0.0 Nucleated Red Blood Cells # 0.0 Sodium Level 141 Potassium Level 3.5 Chloride Level 114 H Carbon Dioxide Level 21 Anion Gap 10 # Blood Urea Nitrogen 24 H Creatinine 1.40 H Glucose Level 121 Calcium Level 7.8 L Phosphorus Level 3.0 Magnesium Level 2.2 Total Bilirubin 0.6 Direct Bilirubin 0.00 Indirect Bilirubin 0.6 Aspartate Amino Transf (AST/SGOT) 18 Alanine Aminotransferase (ALT/SGPT) 22 Alkaline Phosphatase 56 Total Protein 5.2 L Albumin 2.3 L Globulin 2.90 Albumin/Globulin Ratio 0.79 Lab Scanned Report REFERENCE LAB Medications Medications Current Medications Dextrose/Sodium Chloride (D5-1/2ns) 1,000 ml @ 125 mls/hr Q8H IV Last administered on 06/08/17 03:47; Admin Dose 125 MLS/HR; Start 06/03/17 at 22: 43 Ondansetron HCl 4 mg 4 mg Q6H PRN IV NAUSEA AND/OR VOMITING Last administered on 06/06/17 07:57; Admin Dose 4 MG; Start 06/03/17 at 23:00 Norepinephrine 16 mg/Dextrose 500 ml @ 1.87 mls/hr TITRATE IV Last administered on 06/04/17 08:14; Admin Dose 1.87 MLS/HR; Start 06/04/17 at 03: 00 Phenylephrine HCl/ Dextrose (Jc-Syneph/D5W) 500 ml @ 75 mls/hr TITRATE IV Last administered on 06/04/17 02:33; Admin Dose 37.5 MLS/HR; Start 06/04/17 at 01:30 Fentanyl 50 mcg 50 mcg Q3H PRN IV PAIN Last administered on 06/06/17 08:14; Admin Dose 50 MCG; Start 06/05/17 at 11:30 Piperacillin Sod/ Tazobactam Sod (Zosyn 3.375gm/ 100 ml (Pmx)) 100 ml @ 200 mls /hr Q6 IVPB Last administered on 06/08/17 13:04; Admin Dose 200 MLS/HR; Start 06/06/17 at 12:00 Pantoprazole (Protonix Iv) 40 mg DAILY@06 IV Last administered on 06/08/17 05 :39; Admin Dose 40 MG; Start 06/07/17 at 06:00 Metoprolol Succinate (Toprol Xl) 25 mg DAILY PO ; Start 06/07/17 at 15:30; Status Future Hold Metoprolol Tartrate 2.5 mg 2.5 mg Q6 IV Last administered on 06/08/17 12:37; Admin Dose 2.5 MG; Start 06/08/17 at 12:00 Amiodarone HCl/ Dextrose (Cordarone Iv/ D5W) 500 ml @ 0 mls/hr Q0M IV ; Start 06/08/17 at 12:00; Stop 06/09/17 at 11:59 MARY ANAYA MD Jun 08, 2017 14:06
[2017-06-08] MEDS ORDERED: ACETAMINOPHEN 1000MG/100ML IV 100 ML IVPB PRN (16:00)
[2017-06-09] VITALS (47 sets, daily range): BP systolic 90–149; BP diastolic 40–106; PULSE 67–85; RESP 16–33
[2017-06-09] MEDS: PIPER-TAZO 3.375 GM IV (PMX) 100 ML IVPB SCH ×4 (00:42→17:24)
[2017-06-09] MEDS: METOPROLOL 5 MG INJ IV SCH ×4 (00:43→17:24)
[2017-06-09 05:42] LABS: CALCIUM 8.1 mg/dl (8.4-10.2); CREATININE 1.4 mg/dl (0.61-1.24); MAGNESIUM 2.1 mg/dl (1.7-2.5); PHOSPHORUS 2.8 mg/dl (2.5-4.9); POTASSIUM 3.8 mmol/L (3.5-5.1)
[2017-06-09] MEDS: PANTOPRAZOLE 40 MG INJ IV SCH (06:21)
--- NOTE | 2017-06-09 08:04 | CONS ---
Date/Time of Note Date/Time of Note DATE: 06/09/17 TIME: 08:01 Assessment/Plan Assessment/Plan Chief Complaint/Hosp Course NSVT: Had 24 beats of monomorphic, nonsustained VT 06/07. EF is preserved though LAD territory wall motion abnormalities. Also had a mild NSTEMI and definitely has underlying CAD. Electrolyte disturbances were also contributing. He has not had recurrence on amio drip. NSTEMI: Trop up to 1.4 and downtrended on admission. Still likely type II in setting of septic shock and renal failure. Certainly has underlying CAD but he is not a cath candidate. No e/o CHF by exam. Sigmoid mass with bowel obstruction: awaiting colonoscopy Acute renal failure: Resolved but now worse but stable Septic shock: now resolved and off pressors H/o CAD with unknown details Dementia Schizophrenia -continue amiodarone at 0.5mg/min. Can be discontinued after colonoscopy -continue IV metopolol 2.5mg q6h to help control NSVT, switch to PO when able -replete lytes, keep Mg >2, K >4 -can do rectal ASA if able -ok to proceed with colonoscopy - Problems: Consultation Date/Type/Reason Admit Date/Time Jun 03, 2017 at 20:38 Initial Consult Date 06/08/17 Type of Consultation: Cardiology Referring Provider: HUNTER RAO MD 24 HR Interval Summary Free Text/Dictation No o/n events. No NSVT. Remains confused. Exam/Review of Systems Vital Signs Vitals Vital Signs Date Time Temp Pulse Resp B/P Pulse Ox O2 Delivery O2 Flow Rate FiO2 06/09/17 06:00 78 22 138/65 100 Nasal Cannula 06/09/17 04:00 98.5 06/05/17 20:00 3.0 Intake and Output 06/08/17 06/08/17 06/09/17 15:00 23:00 07:00 Intake Total 575 ml 341.46 ml 216.2 ml Output Total 640 ml 1560 ml 1010 ml Balance -65 ml -1218.54 ml -793.8 ml Exam Constitutional: alert, No oriented Psych: nl mood/affect, no complaints Head: atraumatic, normocephalic Neck: No jvd Respiratory: clear to auscultation, No crackles/rales Cardiovascular: regular rate and rhythm, systolic murmur (2/6 CORRINA), No edema Gastrointestinal: non-tender, soft Neurological: nl mental status, nl speech Results Result Diagram: 06/08/1742406/09/17428 Results 24 hrs Laboratory Tests Test 06/09/17 04:29 Sodium Level 142 Potassium Level 3.8 Chloride Level 113 H Carbon Dioxide Level 21 Anion Gap 12 Blood Urea Nitrogen 22 H Creatinine 1.40 H Glucose Level 99 Calcium Level 8.1 L Phosphorus Level 2.8 Magnesium Level 2.1 Medications Medications Current Medications Dextrose/Sodium Chloride (D5-1/2ns) 1,000 ml @ 125 mls/hr Q8H IV Last administered on 06/08/17 03:47; Admin Dose 125 MLS/HR; Start 06/03/17 at 22: 43; Status Future Hold Ondansetron HCl 4 mg 4 mg Q6H PRN IV NAUSEA AND/OR VOMITING Last administered on 06/06/17 07:57; Admin Dose 4 MG; Start 06/03/17 at 23:00 Norepinephrine 16 mg/Dextrose 500 ml @ 1.87 mls/hr TITRATE IV Last administered on 06/04/17 08:14; Admin Dose 1.87 MLS/HR; Start 06/04/17 at 03: 00 Phenylephrine HCl/ Dextrose (Jc-Syneph/D5W) 500 ml @ 75 mls/hr TITRATE IV Last administered on 06/04/17 02:33; Admin Dose 37.5 MLS/HR; Start 06/04/17 at 01:30 Fentanyl 50 mcg 50 mcg Q3H PRN IV PAIN Last administered on 06/06/17 08:14; Admin Dose 50 MCG; Start 06/05/17 at 11:30 Piperacillin Sod/ Tazobactam Sod (Zosyn 3.375gm/ 100 ml (Pmx)) 100 ml @ 200 mls /hr Q6 IVPB Last administered on 06/09/17 06:21; Admin Dose 200 MLS/HR; Start 06/06/17 at 12:00 Pantoprazole (Protonix Iv) 40 mg DAILY@06 IV Last administered on 06/09/17 06 :21; Admin Dose 40 MG; Start 06/07/17 at 06:00 Metoprolol Succinate (Toprol Xl) 25 mg DAILY PO ; Start 06/07/17 at 15:30; Status Future Hold Metoprolol Tartrate 2.5 mg 2.5 mg Q6 IV Last administered on 06/09/17 06:21; Admin Dose 2.5 MG; Start 06/08/17 at 12:00 Amiodarone HCl 900 mg/Dextrose 500 ml @ 0 mls/hr Q0M IV Last administered on 15:36; Admin Dose 33.4 MLS/HR; Start 06/08/17 at 12:00; Stop at 11:59 Acetaminophen (Ofirmev 1000mg/ 100ml Iv) 100 ml @ 400 mls/hr Q6H PRN IVPB FEVER; Start 06/08/17 at 16:00 JULIA MCGARRY Jun 09, 2017 08:04
--- NOTE | 2017-06-09 11:26 | CONS ---
Date/Time of Note Date/Time of Note DATE: 06/09/17 TIME: 11:22 Consult Date/Type/Reason Admit Date/Time Jun 03, 2017 at 20:38 Initial Consult Date 06/03/17 Type of Consultation: Palliative care Ordering Provider: HUNTER RAO MD Subjective Patient's case is to be presented at bioethics meeting June 11. Spoke with surgical instrument mechanic who states there is no further surgical intervention that can be offered that would improve the quality of his life. I thoroughly agree with his assessment. At the bioethics meeting he should be presented to change his code to comfort measures, although I have not spoken with GI if consideration is to place a stent because of a malignancy patient would have a less morbid . Patient's conservator will have to agree with any ongoing course of treatment. Objective Vital Signs Date Time Temp Pulse Resp B/P Pulse Ox O2 Delivery O2 Flow Rate FiO2 06/09/17 10:45 79 23 84 06/09/17 10:30 130/79 06/09/17 08:00 Nasal Cannula 2.0 06/09/17 07:15 97.0 Intake and Output 06/08/17 06/08/17 06/09/17 15:00 23:00 07:00 Intake Total 575 ml 442.26 ml 332.8 ml Output Total 640 ml 1560 ml 1010 ml Balance -65 ml -1117.74 ml -677.2 ml Results/Medications Result Diagram: 06/08/17 0425 06/09/17 0429 Results 24 hrs Laboratory Tests Test 06/09/17 04:29 Sodium Level 142 Potassium Level 3.8 Chloride Level 113 H Carbon Dioxide Level 21 Anion Gap 12 Blood Urea Nitrogen 22 H Creatinine 1.40 H Glucose Level 99 Calcium Level 8.1 L Phosphorus Level 2.8 Magnesium Level 2.1 Medications Current Medications Dextrose/Sodium Chloride (D5-1/2ns) 1,000 ml @ 125 mls/hr Q8H IV Last administered on 06/08/17 03:47; Admin Dose 125 MLS/HR; Start 06/03/17 at 22: 43; Status Future Hold Ondansetron HCl 4 mg 4 mg Q6H PRN IV NAUSEA AND/OR VOMITING Last administered on 06/06/17 07:57; Admin Dose 4 MG; Start 06/03/17 at 23:00 Norepinephrine 16 mg/Dextrose 500 ml @ 1.87 mls/hr TITRATE IV Last administered on 06/04/17 08:14; Admin Dose 1.87 MLS/HR; Start 06/04/17 at 03: 00 Phenylephrine HCl/ Dextrose (Jc-Syneph/D5W) 500 ml @ 75 mls/hr TITRATE IV Last administered on 06/04/17 02:33; Admin Dose 37.5 MLS/HR; Start 06/04/17 at 01:30 Fentanyl 50 mcg 50 mcg Q3H PRN IV PAIN Last administered on 06/06/17 08:14; Admin Dose 50 MCG; Start 06/05/17 at 11:30 Piperacillin Sod/ Tazobactam Sod (Zosyn 3.375gm/ 100 ml (Pmx)) 100 ml @ 200 mls /hr Q6 IVPB Last administered on 06/09/17 11:16; Admin Dose 200 MLS/HR; Start 06/06/17 at 12:00 Pantoprazole (Protonix Iv) 40 mg DAILY@06 IV Last administered on 06/09/17 06 :21; Admin Dose 40 MG; Start 06/07/17 at 06:00 Metoprolol Succinate (Toprol Xl) 25 mg DAILY PO ; Start 06/07/17 at 15:30; Status Future Hold Metoprolol Tartrate 2.5 mg 2.5 mg Q6 IV Last administered on 06/09/17 11:16; Admin Dose 2.5 MG; Start 06/08/17 at 12:00 Amiodarone HCl 900 mg/Dextrose 500 ml @ 0 mls/hr Q0M IV Last administered on 15:36; Admin Dose 33.4 MLS/HR; Start 06/08/17 at 12:00; Stop at 11:59 Acetaminophen (Ofirmev 1000mg/ 100ml Iv) 100 ml @ 400 mls/hr Q6H PRN IVPB FEVER; Start 06/08/17 at 16:00 Assessment/Plan Chief Complaint/Hosp Course Problems: KIMI WOOD Jun 09, 2017 11:26
[2017-06-09 14:48] LABS: BASOPHILS % 0.1 % (0.0-2.0); EOSINOPHILS # 0.1 10^3/ul (0.0-0.5); EOSINOPHILS % 0.6 % (0.0-7.0); HEMATOCRIT 31.8 % (42.0-52.0); HEMOGLOBIN 10.1 g/dl (14.0-18.0); LYMPHOCYTES # 1.2 10^3/ul (0.8-2.9); LYMPHOCYTES % 13.2 % (15.0-51.0); MEAN CORPUSCULAR HGB CONC 31.8 g/dl (32.0-37.0); MONOCYTE # 0.9 10^3/ul (0.3-0.9); MONOCYTES % 10.2 % (0.0-11.0); NEUTROPHIL # 6.5 10^3/ul (1.6-7.5); NEUTROPHILS % 74.5 % (39.0-77.0); PLATELET COUNT 206 10^3/UL (140-415); RED BLOOD COUNT 3.74 10^6/ul (4.70-6.10); WHITE BLOOD COUNT 8.7 10^3/ul (4.8-10.8)
[2017-06-09 15:07] LABS: CALCIUM 7.8 mg/dl (8.4-10.2); CREATININE 1.35 mg/dl (0.61-1.24); POTASSIUM 3.8 mmol/L (3.5-5.1)
[2017-06-09] MEDS ORDERED: ALBUTEROL 18 GM INHALER INH PRN (16:00)
[2017-06-09] MEDS ORDERED: ALBUTEROL HFA 8 GM INHALER INH PRN (16:00)
--- NOTE | 2017-06-09 16:02 | PN ---
Date/Time of Note Date/Time of Note DATE: 06/09/17 TIME: 15:54 Assessment/Plan Lines/Catheters IV Catheter Type (from [facility]): Central Line Mkcnight in Place (from [facility]): Yes Assessment/Plan Chief Complaint/Hosp Course 1. Lactic acidosis, bandemia, CT with ischemic colitis, sbo with Sepsis. Patient has improved clinically with fluids, abx, and anticoagulation. CT: no ischemic bowel, circumferential colon mass; improving -IV antibiotics -IV fluids -Anticoagulation > held per gi -colonoscopy pending- ?stent placement for symptomatic relief -ethics committee pending -cont ng -npo 2. Significant atherosclerosis and coronary artery disease -Patient high risk for any surgery -Cardiac optimization 3. Acute renal failure secondary to above: cr improving -Aggressive and judicious fluid management -Renal -Try to avoid nephrotoxic agents if possible 4. Coffee-ground emesis with possible upper GI bleed: h/h stable, no acute bleed from ng -Close monitoring and transfuse as needed -PPI 5. Anemia with possible blood loss -As above 6. Dysrhythmia history -Optimize lytes -Rate control -Anticoagulation 7. Acute hypokalemia: normalized 8. Obesity with BMI 32 9. Alzheimer's dementia, schizophrenia (paranoid) -Medical and psychiatric optimization -Patient has a conservator but no family. 10. Hypoalbuminemia with hypocalcemia: nutritional +/- inflammation -optimize nutrition as able -as above 11. Left pl effusion vs. pna -pulm toilet -supportive Thank you. Patient seen and examined in collaboration with Dr. Felton Zhang. Problems: Subjective 24 Hr Interval Summary Vomiting x1 today. NG tube with large bilious output. Episode of VTach-off amio drip currently. No acute pain, sob, congested cough, sz. No bowel function as of yet. Exam/Review of Systems Vital Signs Vitals Vital Signs Date Time Temp Pulse Resp B/P Pulse Ox O2 Delivery O2 Flow Rate FiO2 06/09/17 15:00 98.4 79 20 141/71 100 06/09/17 08:00 Nasal Cannula 2.0 Intake and Output 06/08/17 06/08/17 06/09/17 15:00 23:00 07:00 Intake Total 575 ml 442.26 ml 332.8 ml Output Total 640 ml 1560 ml 1010 ml Balance -65 ml -1117.74 ml -677.2 ml Exam Free Text/Dictation Constitutional: obese, awake, No oriented Psych: confusion, nl mood/affect Head: atraumatic, normocephalic Eyes: PERRL, nl conjunctiva, No icteric ENMT: nl external ears & nose, No mucosa pink and moist Neck: jvd, non-tender, supple Respiratory: crackles, normal air movement, No congested cough, No labored breathing Cardiovascular: edema, sr with episode of vtach, regular rate and rhythm Gastrointestinal: mod distended, non tender, No rebound or guarding, hypoactive bowel wounds Musculoskeletal: No joint tenderness, No nl extremities to inspection, No nl gait and stance Extremities: No calf tenderness, No cyanosis Neurological: No nl mental status, No nl strength Skin: No diaphoresis, No rash or lesions Lymph: nl lymph nodes, nontender Results Result Diagram: 06/09/17 1406 06/09/17 1406 BABS ROSE NP Jun 09, 2017 16:02
--- NOTE | 2017-06-09 16:09 | PN ---
Date/Time of Note Date/Time of Note DATE: 06/09/17 TIME: 16:08 Assessment/Plan VTE Prophylaxis VTE Prophylaxis Intervention: LMWH Lines/Catheters IV Catheter Type (from Nrs): Central Line Central line still needed: Yes Urinary Cath still in place: Yes Reason Cath still needed: urinary retention Assessment/Plan Chief Complaint/Hosp Course 81 yo male with dementia who presented with SHAYNA, electrolyte derangments, septic shock and colitis. 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 Hospice will be most likley option but no proxy to make decisions for him Bioethics meeting planned for Sunday Problems: Subjective 24 Hr Interval Summary Free Text/Dictation Still w NSVT runs, asymptomatic Unable to participate in meaningful conversation given dementia NG tube in place Appears comfortable Exam/Review of Systems Vital Signs Vitals Vital Signs Date Time Temp Pulse Resp B/P Pulse Ox O2 Delivery O2 Flow Rate FiO2 06/09/17 15:00 98.4 79 20 141/71 100 06/09/17 08:00 Nasal Cannula 2.0 Intake and Output 06/08/17 06/08/17 06/09/17 15:00 23:00 07:00 Intake Total 575 ml 442.26 ml 332.8 ml Output Total 640 ml 1560 ml 1010 ml Balance -65 ml -1117.74 ml -677.2 ml Exam Constitutional: alert, oriented, well developed Psych: nl mood/affect, no complaints Head: atraumatic, normocephalic Eyes: EOMI, PERRL, nl conjunctiva, nl lids, nl sclera ENMT: nl external ears & nose, nl lips & teeth, nl nasal mucosa & septum Neck: non-tender, supple Respiratory: clear to auscultation, normal air movement Cardiovascular: nl pulses, regular rate and rhythm Gastrointestinal: nl liver, spleen, non-tender, soft Musculoskeletal: nl extremities to inspection, nl gait and stance Extremities: normal pulses Neurological: ASSET PROTECTION ASSISTANT II-XII intact, nl mental status, nl speech, nl strength Skin: nl turgor, No rash or lesions Lymph: nl lymph nodes Results Result Diagram: 06/09/17 1406 06/09/17 1406 Results 24 hrs Laboratory Tests Test 06/09/17 04:29 06/09/17 14:06 Sodium Level 142 143 Potassium Level 3.8 3.8 Chloride Level 113 H 112 H Carbon Dioxide Level 21 22 Anion Gap 12 13 Blood Urea Nitrogen 22 H 22 H Creatinine 1.40 H 1.35 H Glucose Level 99 92 Calcium Level 8.1 L 7.8 L Phosphorus Level 2.8 Magnesium Level 2.1 White Blood Count 8.7 Red Blood Count 3.74 L Hemoglobin 10.1 L Hematocrit 31.8 L Mean Corpuscular Volume 85.0 Mean Corpuscular Hemoglobin 27.0 L Mean Corpuscular Hemoglobin Concent 31.8 L Red Cell Distribution Width 20.0 H Platelet Count 206 Mean Platelet Volume 11.0 H Neutrophils % 74.5 Lymphocytes % 13.2 L Monocytes % 10.2 Eosinophils % 0.6 Basophils % 0.1 Nucleated Red Blood Cells % 0.0 Neutrophils # 6.5 Lymphocytes # 1.2 Monocytes # 0.9 Eosinophils # 0.1 Basophils # 0.0 Nucleated Red Blood Cells # 0.0 Medications Medications Current Medications Dextrose/Sodium Chloride (D5-1/2ns) 1,000 ml @ 125 mls/hr Q8H IV Last administered on 06/08/17 03:47; Admin Dose 125 MLS/HR; Start 06/03/17 at 22: 43; Status Future Hold Ondansetron HCl 4 mg 4 mg Q6H PRN IV NAUSEA AND/OR VOMITING Last administered on 06/06/17 07:57; Admin Dose 4 MG; Start 06/03/17 at 23:00 Norepinephrine 16 mg/Dextrose 500 ml @ 1.87 mls/hr TITRATE IV Last administered on 06/04/17 08:14; Admin Dose 1.87 MLS/HR; Start 06/04/17 at 03: 00 Phenylephrine HCl/ Dextrose (Jc-Syneph/D5W) 500 ml @ 75 mls/hr TITRATE IV Last administered on 06/04/17 02:33; Admin Dose 37.5 MLS/HR; Start 06/04/17 at 01:30 Fentanyl 50 mcg 50 mcg Q3H PRN IV PAIN Last administered on 06/06/17 08:14; Admin Dose 50 MCG; Start 06/05/17 at 11:30 Piperacillin Sod/ Tazobactam Sod (Zosyn 3.375gm/ 100 ml (Pmx)) 100 ml @ 200 mls /hr Q6 IVPB Last administered on 06/09/17 11:16; Admin Dose 200 MLS/HR; Start 06/06/17 at 12:00 Pantoprazole (Protonix Iv) 40 mg DAILY@06 IV Last administered on 06/09/17 06 :21; Admin Dose 40 MG; Start 06/07/17 at 06:00 Metoprolol Succinate (Toprol Xl) 25 mg DAILY PO ; Start 06/07/17 at 15:30; Status Future Hold Metoprolol Tartrate 2.5 mg 2.5 mg Q6 IV Last administered on 06/09/17 11:16; Admin Dose 2.5 MG; Start 06/08/17 at 12:00 Acetaminophen (Ofirmev 1000mg/ 100ml Iv) 100 ml @ 400 mls/hr Q6H PRN IVPB FEVER; Start 06/08/17 at 16:00 Aspirin (Aspirin) 81 mg DAILY PO ; Start 06/09/17 at 16:30 Docusate Sodium (Colace) 100 mg BID PO ; Start 06/09/17 at 21:00 Memantine (Namenda) 10 mg BID PO ; Start 06/09/17 at 21:00 Psyllium Hydrophilic Mucilloid (Metamucil) 1 pkt BID PO ; Start 06/09/17 at 21: 00 Risperidone (Risperdal) 0.25 mg HS PO ; Start 06/09/17 at 21:00 Latanoprost (Xalatan) 1 drop HS BOTH EYES ; Start 06/09/17 at 21:00 Nitroglycerin (Nitroglycerin ([place])) 1 spray PRN PRN TL CHEST PAIN; Start at 17:00 Albuterol (Ventolin Hfa) 1 puff Q4 PRN INH SHORTNESS OF BREATH; Start at 16:00 HUNTER RAO MD Jun 09, 2017 16:09
[2017-06-09] MEDS: ASPIRIN 81 MG TAB PO SCH (16:21)
--- NOTE | 2017-06-09 16:49 | CONS ---
Date/Time of Note Date/Time of Note DATE: 06/09/17 TIME: 16:48 Assessment/Plan Assessment/Plan Chief Complaint/Hosp Course Impression: 1. Lactic acidosis, bandemia, Patient has improved clinically with fluids, abx , and anticoagulation. CT: no ischemic bowel, circumferential colon mass 2. sigmoid mass with colonic obstruction, NG with bilious output 3. Significant atherosclerosis and coronary artery disease 4. Acute renal failure secondary to above: cr improving 5. Coffee-ground emesis with possible upper GI bleed: h/h stable, no acute bleed from ng 6. Obesity with BMI 32 7. Alzheimer's dementia, schizophrenia (paranoid) 8. moderate protein calorie malnutrition. Recommendation: 1. will hold off colonoscopy until clear cardiac clearance and after ethics meeting 2. Additionally, I am not even sure if patient can tolerate a bowel prep as there may be obstruction due to colonic mass 3. Patient has a conservator but no family. I cannot get a hold of conservator at time of f/u. 4. optimize nutrition as able 5. continue all supportive care 6. If absolute need for colonoscopy over the weekend, please call me to discuss. My cell is [phone] Problems: Consultation Date/Type/Reason Admit Date/Time Jun 03, 2017 at 20:38 Initial Consult Date 06/08/17 Type of Consultation: GI Referring Provider: HUNTER RAO MD 24 HR Interval Summary Subjective hx not possible: pt non-verbal Constitutional: disoriented Exam/Review of Systems Vital Signs Vitals Vital Signs Date Time Temp Pulse Resp B/P Pulse Ox O2 Delivery O2 Flow Rate FiO2 06/09/17 16:00 77 06/09/17 15:00 98.4 20 141/71 100 06/09/17 08:00 Nasal Cannula 2.0 Intake and Output 06/08/17 06/08/17 06/09/17 15:00 23:00 07:00 Intake Total 575 ml 442.26 ml 332.8 ml Output Total 640 ml 1560 ml 1010 ml Balance -65 ml -1117.74 ml -677.2 ml Exam Constitutional: non-verbal Psych: confusion Head: atraumatic, normocephalic ENMT: nl external ears & nose, nl lips & teeth, nl nasal mucosa & septum Neck: non-tender, supple Respiratory: clear to auscultation, normal air movement Cardiovascular: nl pulses, regular rate and rhythm Gastrointestinal: bowel sounds, non-tender, soft Results Result Diagram: 06/09/17 1406 06/09/17 1406 Results 24 hrs Laboratory Tests Test 06/09/17 04:29 06/09/17 14:06 Sodium Level 142 143 Potassium Level 3.8 3.8 Chloride Level 113 H 112 H Carbon Dioxide Level 21 22 Anion Gap 12 13 Blood Urea Nitrogen 22 H 22 H Creatinine 1.40 H 1.35 H Glucose Level 99 92 Calcium Level 8.1 L 7.8 L Phosphorus Level 2.8 Magnesium Level 2.1 White Blood Count 8.7 Red Blood Count 3.74 L Hemoglobin 10.1 L Hematocrit 31.8 L Mean Corpuscular Volume 85.0 Mean Corpuscular Hemoglobin 27.0 L Mean Corpuscular Hemoglobin Concent 31.8 L Red Cell Distribution Width 20.0 H Platelet Count 206 Mean Platelet Volume 11.0 H Neutrophils % 74.5 Lymphocytes % 13.2 L Monocytes % 10.2 Eosinophils % 0.6 Basophils % 0.1 Nucleated Red Blood Cells % 0.0 Neutrophils # 6.5 Lymphocytes # 1.2 Monocytes # 0.9 Eosinophils # 0.1 Basophils # 0.0 Nucleated Red Blood Cells # 0.0 Medications Medications Current Medications Dextrose/Sodium Chloride (D5-1/2ns) 1,000 ml @ 125 mls/hr Q8H IV Last administered on 06/08/17 03:47; Admin Dose 125 MLS/HR; Start 06/03/17 at 22: 43; Status Future Hold Ondansetron HCl 4 mg 4 mg Q6H PRN IV NAUSEA AND/OR VOMITING Last administered on 06/06/17 07:57; Admin Dose 4 MG; Start 06/03/17 at 23:00 Norepinephrine 16 mg/Dextrose 500 ml @ 1.87 mls/hr TITRATE IV Last administered on 06/04/17 08:14; Admin Dose 1.87 MLS/HR; Start 06/04/17 at 03: 00 Phenylephrine HCl/ Dextrose (Jc-Syneph/D5W) 500 ml @ 75 mls/hr TITRATE IV Last administered on 06/04/17 02:33; Admin Dose 37.5 MLS/HR; Start 06/04/17 at 01:30 Fentanyl 50 mcg 50 mcg Q3H PRN IV PAIN Last administered on 06/06/17 08:14; Admin Dose 50 MCG; Start 06/05/17 at 11:30 Piperacillin Sod/ Tazobactam Sod (Zosyn 3.375gm/ 100 ml (Pmx)) 100 ml @ 200 mls /hr Q6 IVPB Last administered on 06/09/17 11:16; Admin Dose 200 MLS/HR; Start 06/06/17 at 12:00 Pantoprazole (Protonix Iv) 40 mg DAILY@06 IV Last administered on 06/09/17 06 :21; Admin Dose 40 MG; Start 06/07/17 at 06:00 Metoprolol Succinate (Toprol Xl) 25 mg DAILY PO ; Start 06/07/17 at 15:30; Status Future Hold Metoprolol Tartrate 2.5 mg 2.5 mg Q6 IV Last administered on 06/09/17 11:16; Admin Dose 2.5 MG; Start 06/08/17 at 12:00 Acetaminophen (Ofirmev 1000mg/ 100ml Iv) 100 ml @ 400 mls/hr Q6H PRN IVPB FEVER; Start 06/08/17 at 16:00 Aspirin (Aspirin) 81 mg DAILY PO ; Start 06/09/17 at 16:30 Docusate Sodium (Colace) 100 mg BID PO ; Start 06/09/17 at 21:00 Memantine (Namenda) 10 mg BID PO ; Start 06/09/17 at 21:00 Psyllium Hydrophilic Mucilloid (Metamucil) 1 pkt BID PO ; Start 06/09/17 at 21: 00 Risperidone (Risperdal) 0.25 mg HS PO ; Start 06/09/17 at 21:00 Latanoprost (Xalatan) 1 drop HS BOTH EYES ; Start 06/09/17 at 21:00 Nitroglycerin (Nitroglycerin ([place])) 1 spray PRN PRN TL CHEST PAIN; Start at 17:00 Albuterol 1 puff 1 puff Q4 PRN INH SHORTNESS OF BREATH; Start 06/09/17 at 16: 00 Amiodarone HCl/ Dextrose (Cordarone Iv/ D5W) 500 ml @ 16.7 mls/hr Q24H IV ; Start 06/09/17 at 17:00; Stop 06/10/17 at 16:59 MARY ANAYA MD Jun 09, 2017 16:49
[2017-06-09] MEDS ORDERED: NITROGLYCERIN AEROSOL (4.9 GM) TL PRN (17:00)
[2017-06-09] MEDS ORDERED: AMIODARONE 900 MG in DEXTROSE 5% 482 ML IV SCH (17:00)
[2017-06-09] MEDS: RISPERIDONE 0.25 MG TAB PO SCH (20:43)
[2017-06-09] MEDS: MEMANTINE 10 MG TAB PO SCH (20:43)
[2017-06-09] MEDS: PSYLLIUM 28% PACKET PO SCH (20:44)
[2017-06-09] MEDS: DOCUSATE SODIUM 100 MG CAP PO SCH (20:44)
[2017-06-09] MEDS: LATANOPROST 0.005% 2.5 ML OPH BOTH EYES SCH (20:44)
[2017-06-10] VITALS (21 sets, daily range): BP systolic 97–155; BP diastolic 52–93; PULSE 72–82; RESP 14–24
[2017-06-10] MEDS: PIPER-TAZO 3.375 GM IV (PMX) 100 ML IVPB SCH ×4 (01:36→18:35)
[2017-06-10] MEDS: METOPROLOL 5 MG INJ IV SCH ×4 (01:37→18:35)
[2017-06-10 04:34] LABS: BASOPHILS % 0.2 % (0.0-2.0); EOSINOPHILS # 0.1 10^3/ul (0.0-0.5); EOSINOPHILS % 0.9 % (0.0-7.0); HEMATOCRIT 31.1 % (42.0-52.0); HEMOGLOBIN 10.1 g/dl (14.0-18.0); LYMPHOCYTES # 1.4 10^3/ul (0.8-2.9); LYMPHOCYTES % 14.5 % (15.0-51.0); MEAN CORPUSCULAR HEMOGLOBIN 27.5 pg (29.0-33.0); MEAN CORPUSCULAR HGB CONC 32.5 g/dl (32.0-37.0); MEAN CORPUSCULAR VOLUME 84.7 fl (82.0-101.0); MEAN PLATELET VOLUME 10.5 fl (7.4-10.4); MONOCYTE # 0.9 10^3/ul (0.3-0.9); MONOCYTES % 9.5 % (0.0-11.0); NEUTROPHIL # 7.3 10^3/ul (1.6-7.5); NEUTROPHILS % 73.8 % (39.0-77.0); PLATELET COUNT 212 10^3/UL (140-415); RED BLOOD COUNT 3.67 10^6/ul (4.70-6.10); RED CELL DISTRIBUTION WIDTH 20.2 % (11.5-14.5); WHITE BLOOD COUNT 9.8 10^3/ul (4.8-10.8)
[2017-06-10 04:54] LABS: CREATININE 1.4 mg/dl (0.61-1.24); MAGNESIUM 2.1 mg/dl (1.7-2.5); PHOSPHORUS 3.3 mg/dl (2.5-4.9); POTASSIUM 3.7 mmol/L (3.5-5.1)
[2017-06-10] MEDS: PANTOPRAZOLE 40 MG INJ IV SCH (05:39)
[2017-06-10] MEDS: DOCUSATE SODIUM 100 MG CAP PO SCH ×2 (09:00→20:27)
[2017-06-10] MEDS: MEMANTINE 10 MG TAB PO SCH ×2 (09:00→20:28)
[2017-06-10] MEDS: PSYLLIUM 28% PACKET PO SCH ×2 (09:00→20:28)
[2017-06-10] MEDS: ASPIRIN 81 MG TAB PO SCH (09:00)
--- NOTE | 2017-06-10 09:13 | CONS ---
Date/Time of Note Date/Time of Note DATE: 06/10/17 TIME: 09:12 Assessment/Plan Assessment/Plan Chief Complaint/Hosp Course Impression: 1. Lactic acidosis, bandemia, Patient has improved clinically with fluids, abx , and anticoagulation. CT: no ischemic bowel, circumferential colon mass 2. sigmoid mass with colonic obstruction, NG with bilious output 3. Significant atherosclerosis and coronary artery disease 4. Acute renal failure secondary to above: cr improving 5. Coffee-ground emesis with possible upper GI bleed: h/h stable, no acute bleed from ng 6. Obesity with BMI 32 7. Alzheimer's dementia, schizophrenia (paranoid) 8. moderate protein calorie malnutrition. Recommendation: 1. will hold off colonoscopy until clear cardiac clearance and after ethics meeting 2. Additionally, I am not even sure if patient can tolerate a bowel prep as there may be obstruction due to colonic mass 3. Patient has a conservator but no family. I cannot get a hold of conservator at time of f/u. 4. optimize nutrition as able 5. continue all supportive care 6. If absolute need for colonoscopy over the weekend, please call me to discuss. My cell is [phone] 7. otherwise, Dr. Davis to resume care tomorrow Problems: Consultation Date/Type/Reason Admit Date/Time Jun 03, 2017 at 20:38 Initial Consult Date 06/08/17 Type of Consultation: GI Referring Provider: HUNTER RAO MD 24 HR Interval Summary Subjective hx not possible: pt non-verbal Constitutional: disoriented Exam/Review of Systems Vital Signs Vitals Vital Signs Date Time Temp Pulse Resp B/P Pulse Ox O2 Delivery O2 Flow Rate FiO2 06/10/17 04:00 74 06/10/17 02:00 21 127/64 94 06/10/17 00:00 98.3 06/09/17 20:00 Nasal Cannula 2.0 Intake and Output 06/09/17 06/09/17 06/10/17 15:00 23:00 07:00 Intake Total 232.8 ml 0 ml 0 ml Output Total 1070 ml 200 ml 400 ml Balance -837.2 ml -200 ml -400 ml Exam Constitutional: non-verbal Psych: confusion Head: atraumatic, normocephalic Eyes: nl conjunctiva, nl lids, nl sclera ENMT: mucosa pink and moist, nl external ears & nose, nl lips & teeth, nl nasal mucosa & septum Neck: non-tender, supple Respiratory: clear to auscultation, normal air movement Cardiovascular: nl pulses, regular rate and rhythm Gastrointestinal: bowel sounds, non-tender, soft Neurological: nl mental status, nl speech, nl strength Results Result Diagram: 06/10/17 0415 06/10/17 0415 Results 24 hrs Laboratory Tests Test 06/09/17 14:06 06/10/17 04:15 White Blood Count 8.7 9.8 Red Blood Count 3.74 L 3.67 L Hemoglobin 10.1 L 10.1 L Hematocrit 31.8 L 31.1 L Mean Corpuscular Volume 85.0 84.7 Mean Corpuscular Hemoglobin 27.0 L 27.5 L Mean Corpuscular Hemoglobin Concent 31.8 L 32.5 Red Cell Distribution Width 20.0 H 20.2 H Platelet Count 206 212 Mean Platelet Volume 11.0 H 10.5 H Neutrophils % 74.5 73.8 Lymphocytes % 13.2 L 14.5 L Monocytes % 10.2 9.5 Eosinophils % 0.6 0.9 Basophils % 0.1 0.2 Nucleated Red Blood Cells % 0.0 0.0 Neutrophils # 6.5 7.3 Lymphocytes # 1.2 1.4 Monocytes # 0.9 0.9 Eosinophils # 0.1 0.1 Basophils # 0.0 0.0 Nucleated Red Blood Cells # 0.0 0.0 Sodium Level 143 143 Potassium Level 3.8 3.7 Chloride Level 112 H 112 H Carbon Dioxide Level 22 23 Anion Gap 13 12 Blood Urea Nitrogen 22 H 21 H Creatinine 1.35 H 1.40 H Glucose Level 92 88 Calcium Level 7.8 L 8.0 L Phosphorus Level 3.3 Magnesium Level 2.1 Medications Medications Current Medications Dextrose/Sodium Chloride (D5-1/2ns) 1,000 ml @ 125 mls/hr Q8H IV Last administered on 06/08/17 03:47; Admin Dose 125 MLS/HR; Start 06/03/17 at 22: 43; Status Future Hold Ondansetron HCl 4 mg 4 mg Q6H PRN IV NAUSEA AND/OR VOMITING Last administered on 06/06/17 07:57; Admin Dose 4 MG; Start 06/03/17 at 23:00 Norepinephrine 16 mg/Dextrose 500 ml @ 1.87 mls/hr TITRATE IV Last administered on 06/04/17 08:14; Admin Dose 1.87 MLS/HR; Start 06/04/17 at 03: 00 Phenylephrine HCl/ Dextrose (Jc-Syneph/D5W) 500 ml @ 75 mls/hr TITRATE IV Last administered on 06/04/17 02:33; Admin Dose 37.5 MLS/HR; Start 06/04/17 at 01:30 Fentanyl 50 mcg 50 mcg Q3H PRN IV PAIN Last administered on 06/06/17 08:14; Admin Dose 50 MCG; Start 06/05/17 at 11:30 Piperacillin Sod/ Tazobactam Sod (Zosyn 3.375gm/ 100 ml (Pmx)) 100 ml @ 200 mls /hr Q6 IVPB Last administered on 06/10/17 05:39; Admin Dose 200 MLS/HR; Start 06/06/17 at 12:00 Pantoprazole (Protonix Iv) 40 mg DAILY@06 IV Last administered on 06/10/17 05 :39; Admin Dose 40 MG; Start 06/07/17 at 06:00 Metoprolol Succinate (Toprol Xl) 25 mg DAILY PO ; Start 06/07/17 at 15:30; Status Future Hold Metoprolol Tartrate 2.5 mg 2.5 mg Q6 IV Last administered on 06/10/17 05:40; Admin Dose 2.5 MG; Start 06/08/17 at 12:00 Acetaminophen (Ofirmev 1000mg/ 100ml Iv) 100 ml @ 400 mls/hr Q6H PRN IVPB FEVER; Start 06/08/17 at 16:00 Aspirin (Aspirin) 81 mg DAILY PO ; Start 06/09/17 at 16:30 Docusate Sodium (Colace) 100 mg BID PO ; Start 06/09/17 at 21:00 Memantine (Namenda) 10 mg BID PO Last administered on 06/09/17 20:43; Admin Dose 10 MG; Start 06/09/17 at 21:00 Psyllium Hydrophilic Mucilloid (Metamucil) 1 pkt BID PO Last administered on 20:44; Admin Dose 1 PKT; Start 06/09/17 at 21:00 Risperidone (Risperdal) 0.25 mg HS PO Last administered on 06/09/17 20:43; Admin Dose 0.25 MG; Start 06/09/17 at 21:00 Latanoprost (Xalatan) 1 drop HS BOTH EYES Last administered on 06/09/17 20:44 ; Admin Dose 1 DROP; Start 06/09/17 at 21:00 Nitroglycerin (Nitroglycerin ([place])) 1 spray PRN PRN TL CHEST PAIN; Start at 17:00 Albuterol 1 puff 1 puff Q4 PRN INH SHORTNESS OF BREATH; Start 06/09/17 at 16: 00 Amiodarone HCl/ Dextrose (Cordarone Iv/ D5W) 500 ml @ 16.7 mls/hr Q24H IV Last administered on 06/09/17 17:23; Admin Dose 16.7 MLS/HR; Start 06/09/17 at 17:00; Stop 06/10/17 at 16:59 MARY ANAYA MD Jun 10, 2017 09:13
[2017-06-10] MEDS ORDERED: AMIODARONE 900 MG in DEXTROSE 5% 482 ML IV SCH (11:13)
--- NOTE | 2017-06-10 14:35 | PN ---
Date/Time of Note Date/Time of Note DATE: 06/10/17 TIME: 14:34 Assessment/Plan VTE Prophylaxis VTE Prophylaxis Intervention: LMWH Lines/Catheters IV Catheter Type (from Nrs): Central Line Central line still needed: Yes Urinary Cath still in place: Yes Reason Cath still needed: urinary retention Assessment/Plan Chief Complaint/Hosp Course 81 yo male with dementia who presented with SHAYNA, electrolyte derangments, septic shock and colitis. 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 Bioethics meeting tomorrow. Comfort care may be most appropriate NSVT: - IV metoprolol, amiodarone IV Sepsis/Colitis: - Complete zosyn course x 7 days Metabolic acidosis, hypokalemia, hypophosphatemia, hypernatremia, SHAYNA: - Replete K, PHos as needed - SHAYNA is resolving with fluids - Replaced FW deficit Appreciate Dr Alycia alamoacne with goals of care. Hospice will be most likley option but no proxy to make decisions for him Bioethics meeting planned for Sunday Problems: Subjective 24 Hr Interval Summary Free Text/Dictation Patient is comfortable Again tried to discuss his diagnosis with him, but his dementia precludes any meaningful understanding of his condition He denies any physial discomfort Exam/Review of Systems Vital Signs Vitals Vital Signs Date Time Temp Pulse Resp B/P Pulse Ox O2 Delivery O2 Flow Rate FiO2 06/10/17 12:00 80 06/10/17 02:00 21 127/64 94 06/10/17 00:00 98.3 06/09/17 20:00 Nasal Cannula 2.0 Intake and Output 06/09/17 06/09/17 06/10/17 15:00 23:00 07:00 Intake Total 232.8 ml 0 ml 0 ml Output Total 1070 ml 200 ml 400 ml Balance -837.2 ml -200 ml -400 ml Exam Constitutional: alert, oriented, well developed Psych: nl mood/affect, no complaints Head: atraumatic, normocephalic Eyes: EOMI, PERRL, nl conjunctiva, nl lids, nl sclera ENMT: nl external ears & nose, nl lips & teeth, nl nasal mucosa & septum Neck: non-tender, supple Respiratory: clear to auscultation, normal air movement Cardiovascular: nl pulses, regular rate and rhythm Gastrointestinal: nl liver, spleen, non-tender, soft Musculoskeletal: nl extremities to inspection, nl gait and stance Extremities: normal pulses Neurological: [employer] II-XII intact, nl mental status, nl speech, nl strength Skin: nl turgor, No rash or lesions Lymph: nl lymph nodes Results Result Diagram: 06/10/1741406/10/17414 Results 24 hrs Laboratory Tests Test 06/10/17 04:15 White Blood Count 9.8 Red Blood Count 3.67 L Hemoglobin 10.1 L Hematocrit 31.1 L Mean Corpuscular Volume 84.7 Mean Corpuscular Hemoglobin 27.5 L Mean Corpuscular Hemoglobin Concent 32.5 Red Cell Distribution Width 20.2 H Platelet Count 212 Mean Platelet Volume 10.5 H Neutrophils % 73.8 Lymphocytes % 14.5 L Monocytes % 9.5 Eosinophils % 0.9 Basophils % 0.2 Nucleated Red Blood Cells % 0.0 Neutrophils # 7.3 Lymphocytes # 1.4 Monocytes # 0.9 Eosinophils # 0.1 Basophils # 0.0 Nucleated Red Blood Cells # 0.0 Sodium Level 143 Potassium Level 3.7 Chloride Level 112 H Carbon Dioxide Level 23 Anion Gap 12 Blood Urea Nitrogen 21 H Creatinine 1.40 H Glucose Level 88 Calcium Level 8.0 L Phosphorus Level 3.3 Magnesium Level 2.1 Medications Medications Current Medications Dextrose/Sodium Chloride (D5-1/2ns) 1,000 ml @ 125 mls/hr Q8H IV Last administered on 06/08/17 03:47; Admin Dose 125 MLS/HR; Start 06/03/17 at 22: 43; Status Future Hold Ondansetron HCl 4 mg 4 mg Q6H PRN IV NAUSEA AND/OR VOMITING Last administered on 06/06/17 07:57; Admin Dose 4 MG; Start 06/03/17 at 23:00 Norepinephrine 16 mg/Dextrose 500 ml @ 1.87 mls/hr TITRATE IV Last administered on 06/04/17 08:14; Admin Dose 1.87 MLS/HR; Start 06/04/17 at 03: 00 Phenylephrine HCl/ Dextrose (Jc-Syneph/D5W) 500 ml @ 75 mls/hr TITRATE IV Last administered on 06/04/17 02:33; Admin Dose 37.5 MLS/HR; Start 06/04/17 at 01:30 Fentanyl 50 mcg 50 mcg Q3H PRN IV PAIN Last administered on 06/06/17 08:14; Admin Dose 50 MCG; Start 06/05/17 at 11:30 Piperacillin Sod/ Tazobactam Sod (Zosyn 3.375gm/ 100 ml (Pmx)) 100 ml @ 200 mls /hr Q6 IVPB Last administered on 06/10/17 13:21; Admin Dose 200 MLS/HR; Start 06/06/17 at 12:00 Pantoprazole (Protonix Iv) 40 mg DAILY@06 IV Last administered on 06/10/17 05 :39; Admin Dose 40 MG; Start 06/07/17 at 06:00 Metoprolol Succinate (Toprol Xl) 25 mg DAILY PO ; Start 06/07/17 at 15:30; Status Future Hold Metoprolol Tartrate 2.5 mg 2.5 mg Q6 IV Last administered on 06/10/17 13:21; Admin Dose 2.5 MG; Start 06/08/17 at 12:00 Acetaminophen (Ofirmev 1000mg/ 100ml Iv) 100 ml @ 400 mls/hr Q6H PRN IVPB FEVER; Start 06/08/17 at 16:00 Aspirin (Aspirin) 81 mg DAILY PO ; Start 06/09/17 at 16:30 Docusate Sodium (Colace) 100 mg BID PO ; Start 06/09/17 at 21:00 Memantine (Namenda) 10 mg BID PO Last administered on 06/09/17 20:43; Admin Dose 10 MG; Start 06/09/17 at 21:00 Psyllium Hydrophilic Mucilloid (Metamucil) 1 pkt BID PO Last administered on 20:44; Admin Dose 1 PKT; Start 06/09/17 at 21:00 Risperidone (Risperdal) 0.25 mg HS PO Last administered on 06/09/17 20:43; Admin Dose 0.25 MG; Start 06/09/17 at 21:00 Latanoprost (Xalatan) 1 drop HS BOTH EYES Last administered on 06/09/17 20:44 ; Admin Dose 1 DROP; Start 06/09/17 at 21:00 Nitroglycerin (Nitroglycerin ([place])) 1 spray PRN PRN TL CHEST PAIN; Start at 17:00 Albuterol 1 puff 1 puff Q4 PRN INH SHORTNESS OF BREATH; Start 06/09/17 at 16: 00 Amiodarone HCl/ Dextrose (Cordarone Iv/ D5W) 500 ml @ 0 mls/hr Q0M IV ; Start 06/10/17 at 11:13; Stop 06/11/17 at 11:00 HUNTER RAO MD Jun 10, 2017 14:35
--- NOTE | 2017-06-10 15:18 | PN ---
DATE: 06/10/2017 SUBJECTIVE: The patient remains critically ill, no acute events noted. No hemoptysis, hematemesis or hematochezia. OBJECTIVE: VITAL SIGNS: Blood pressure is 127/64, respirations 21, pulse 73, temperature 98.3. HEENT: Head is normocephalic. NECK: Supple. HEART: Regular rate. LUNGS: Show diminished breath sounds at base. ABDOMEN: Soft, nontender to palpation without rebound or guarding. EXTREMITIES: Negative for clubbing, cyanosis. No edema. DERMATOLOGIC: No rashes. MUSCULOSKELETAL: No joint effusions. NEUROLOGIC: No change in exam. MEDICATIONS: The patient's medications have been reviewed. LABORATORY DATA: Shows white count 9.8, hemoglobin 10.1, hematocrit 31.1, platelet count is 212. S odium 143, potassium 3.7, chloride 112, BUN is 21, creatinine 1.40. ASSESSMENT AND PLAN: 1. Nonoliguric acute kidney injury with unknown baseline creatinine. Etiology is secondary to acut e kidney injury and hemodynamics. Renal function has been stable over the last 2 to 3 days. Contin ue current treatment plan, supportive care, renally dose all meds, avoid nephrotoxins. 2. Hyponatremia, improved. 3. Mineral bone disorder. Continue to monitor calcium and phosphorus levels. 4. Anemia. Monitor hemoglobin and hematocrit levels. 5. Sepsis status post shock secondary to monitor. Continue current antibiotic regimen. 6. Sigmoid mass, concerning for neoplasm, continue to monitor. The patient has meeting sched uled for Sunday. 7. Coronary artery disease. Continue medical management. 8. Acute encephalopathy and Alzheimer dementia. 8. Atrial fibrillation with rapid rate. Continue current treatment plan. Dictated By: GISELA GUARDADO/ALLEY Conf#: [id number] DID#: [id number]
[2017-06-10] MEDS: RISPERIDONE 0.25 MG TAB PO SCH (20:28)
[2017-06-10] MEDS: LATANOPROST 0.005% 2.5 ML OPH BOTH EYES SCH (20:32)
--- NOTE | 2017-06-10 21:48 | PN ---
Date/Time of Note Date/Time of Note DATE: 06/10/17 TIME: 21:36 Assessment/Plan Lines/Catheters IV Catheter Type (from [facility] Central Line [place] in Place (from [facility]): Yes Assessment/Plan Chief Complaint/Hosp Course 1. Bowel obstruction 2/2 colon mass: CT: no ischemic bowel, circumferential colon mass; no bowel function as of yet -IV antibiotics -IV fluids -Anticoagulation > held per gi -colonoscopy pending- ?stent placement for symptomatic relief -ethics committee pending -cont ng for decompression -npo 2. Significant atherosclerosis and coronary artery disease -Patient high risk for any surgery -Cardiac optimization 3. Acute renal failure secondary to above: cr stable -Aggressive and judicious fluid management -per renal -Try to avoid nephrotoxic agents if possible 4. Coffee-ground emesis with possible upper GI bleed: h/h stable, no acute bleed from ng -Close monitoring and transfuse as needed -PPI 5. Anemia with possible blood loss -As above 6. Dysrhythmia history- episodes of vtach, now on amio drip again -Optimize lytes -Rate control -Anticoagulation 7. Acute hypokalemia: normalized 8. Obesity with BMI 32 9. Alzheimer's dementia, schizophrenia (paranoid) -Medical and psychiatric optimization -Patient has a conservator but no family. 10. Hypoalbuminemia with hypocalcemia: nutritional +/- inflammation -optimize nutrition as able -as above 11. Left pl effusion vs. pna -pulm toilet -supportive Thank you. Patient seen and examined in collaboration with Dr. Felton Zhang. Problems: Subjective 24 Hr Interval Summary Back on amiodarone drip - episode of sustained vtach yesterday. No bowel function as of yet. NG tube. Pending ethics committee meeting tomorrow. No c/o pain, sob, congested cough, n/v/d/dysuria. Exam/Review of Systems Vital Signs Vitals Vital Signs Date Time Temp Pulse Resp B/P Pulse Ox O2 Delivery O2 Flow Rate FiO2 06/10/17 18:00 77 23 133/52 99 Room Air 06/10/17 16:00 98.4 06/09/17 20:00 2.0 Intake and Output 06/09/17 06/09/17 06/10/17 15:00 23:00 07:00 Intake Total 232.8 ml 0 ml 300 ml Output Total 1070 ml 200 ml 400 ml Balance -837.2 ml -200 ml -100 ml Exam Free Text/Dictation Constitutional: obese, awake Psych: confusion, anxious Head: atraumatic, normocephalic Eyes: PERRL, nl conjunctiva, No icteric ENMT: nl external ears & nose, No mucosa pink and moist Neck: jvd, non-tender, supple Respiratory: crackles, normal air movement, No congested cough, No labored breathing Cardiovascular: edema, sr, regular rate and rhythm Gastrointestinal: mod distended, non tender, No rebound or guarding, hypoactive bowel wounds Musculoskeletal: No joint tenderness, No nl extremities to inspection, No nl gait and stance Extremities: No calf tenderness, No cyanosis Neurological: No nl mental status, No nl strength Skin: No diaphoresis, No rash or lesions Lymph: nl lymph nodes, nontender Results Result Diagram: 06/10/17 0415 06/10/17 0415 BABS ROSE NP Jun 10, 2017 21:48
[2017-06-10] MEDS: FENTAnyl 50 MCG/ML VIAL IV PRN (23:24)
[2017-06-11] VITALS (41 sets, daily range): BP systolic 122–181; BP diastolic 58–101; PULSE 65–85; RESP 13–24
[2017-06-11] MEDS: PIPER-TAZO 3.375 GM IV (PMX) 100 ML IVPB SCH ×3 (00:18→12:01)
[2017-06-11] MEDS: METOPROLOL 5 MG INJ IV SCH ×4 (00:20→18:35)
[2017-06-11 04:59] LABS: BASOPHILS % 0.1 % (0.0-2.0); EOSINOPHILS # 0.1 10^3/ul (0.0-0.5); EOSINOPHILS % 0.6 % (0.0-7.0); HEMOGLOBIN 9.7 g/dl (14.0-18.0); LYMPHOCYTES # 1.2 10^3/ul (0.8-2.9); LYMPHOCYTES % 11.3 % (15.0-51.0); MEAN CORPUSCULAR HEMOGLOBIN 27.7 pg (29.0-33.0); MEAN CORPUSCULAR HGB CONC 32.3 g/dl (32.0-37.0); MEAN CORPUSCULAR VOLUME 85.7 fl (82.0-101.0); MEAN PLATELET VOLUME 10.7 fl (7.4-10.4); MONOCYTE # 0.8 10^3/ul (0.3-0.9); NEUTROPHIL # 8.3 10^3/ul (1.6-7.5); NEUTROPHILS % 78.9 % (39.0-77.0); PLATELET COUNT 230 10^3/UL (140-415); RED CELL DISTRIBUTION WIDTH 20.2 % (11.5-14.5); WHITE BLOOD COUNT 10.5 10^3/ul (4.8-10.8)
[2017-06-11 05:25] LABS: CALCIUM 7.8 mg/dl (8.4-10.2); CREATININE 1.31 mg/dl (0.61-1.24); POTASSIUM 3.5 mmol/L (3.5-5.1)
[2017-06-11] MEDS: PANTOPRAZOLE 40 MG INJ IV SCH (06:04)
--- NOTE | 2017-06-11 08:57 | PN ---
DATE: 06/11/2017 SUBJECTIVE: The patient is stable. No events overnight. The patient remains in critical state. OBJECTIVE: VITAL SIGNS: Blood pressure is 146/66, respirations 17, pulse 74, temperature 97.6. HEENT: Head is normocephalic. NECK: Supple. HEART: Regular rate. LUNGS: Show diminished breath sounds at base. ABDOMEN: Soft, nontender to palpation. No rebound or guarding. EXTREMITIES: Negative for clubbing, cyanosis. No edema. DERMATOLOGIC: No rashes. MUSCULOSKELETAL: No joint effusions. NEUROLOGIC: No change in exam. MEDICATIONS: The patient's medications have been reviewed. LABORATORY DATA: Shows a sodium 144, potassium 3.5, BUN 19, creatinine 1.31m, calcium 7.8. White c ount 10.5, hemoglobin 9.7, hematocrit 30.0, platelet count is 230. ASSESSMENT AND PLAN: 1. Nonoliguric acute kidney injury with unknown baseline creatinine. Etiology secondary to hemodyn amics. Renal function has been stable. Continue current treatment plan, supportive care, renally d ose all meds. 2. Mineral bone disorder. Monitor calcium and phosphorus levels. 3. Anemia. Monitor hemoglobin and hematocrit levels. 4. Sepsis status post shock. Continue current antibiotic regimen. 5. Sigmoid mass, concerning for neoplasm, continue to monitor. The patient is scheduled for bioeth ics meeting today. 6. Coronary artery disease. Continue medical management. 7. Acute encephalopathy and Alzheimer dementia. 8. Atrial fibrillation, continue current treatment plan. Dictated By: GISELA BENTLEY Conf#: [id number] DID#: [id number]
[2017-06-11] MEDS: MEMANTINE 10 MG TAB PO SCH (09:00)
[2017-06-11] MEDS: PSYLLIUM 28% PACKET PO SCH (09:00)
[2017-06-11] MEDS: ASPIRIN 81 MG TAB PO SCH (09:00)
[2017-06-11] MEDS: DOCUSATE SODIUM 100 MG CAP PO SCH (09:00)
--- NOTE | 2017-06-11 10:02 | CONS ---
Date/Time of Note Date/Time of Note DATE: 06/11/17 TIME: 09:58 Assessment/Plan Assessment/Plan Chief Complaint/Hosp Course Problems: Additional Assessment/Plan Patient scheduled to be discussed bioethics today. Patient is appropriate for comfort measures secondary to recent bout of sepsis and severe dementia. Full follow-up palliative care note will be done after bioethics meeting. Consultation Date/Type/Reason Admit Date/Time Jun 03, 2017 at 20:38 Hx of Present Illness Constitutional: disoriented Psychological: confusion Social History Smoking Status: Unknown if ever smoked Exam/Review of Systems Vital Signs Vitals Vital Signs Date Time Temp Pulse Resp B/P Pulse Ox O2 Delivery O2 Flow Rate FiO2 06/11/17 09:00 72 16 155/63 06/11/17 08:45 81 06/11/17 07:00 97.8 06/11/17 06:00 Room Air 06/09/17 20:00 2.0 Intake and Output 06/10/17 06/10/17 06/11/17 15:00 23:00 07:00 Intake Total 233.6 ml 125.2 ml 233.6 ml Output Total 180 ml 360 ml 290 ml Balance 53.6 ml -234.8 ml -56.4 ml Results Result Diagram: 06/11/17 0430 06/11/17 0430 Results 24 hrs Laboratory Tests Test 06/11/17 04:30 White Blood Count 10.5 Red Blood Count 3.50 L Hemoglobin 9.7 L Hematocrit 30.0 L Mean Corpuscular Volume 85.7 Mean Corpuscular Hemoglobin 27.7 L Mean Corpuscular Hemoglobin Concent 32.3 Red Cell Distribution Width 20.2 H Platelet Count 230 Mean Platelet Volume 10.7 H Neutrophils % 78.9 H Lymphocytes % 11.3 L Monocytes % 8.0 Eosinophils % 0.6 Basophils % 0.1 Nucleated Red Blood Cells % 0.0 Neutrophils # 8.3 H Lymphocytes # 1.2 Monocytes # 0.8 Eosinophils # 0.1 Basophils # 0.0 Nucleated Red Blood Cells # 0.0 Sodium Level 144 Potassium Level 3.5 Chloride Level 113 H Carbon Dioxide Level 21 Anion Gap 14 Blood Urea Nitrogen 19 Creatinine 1.31 H Glucose Level 86 Calcium Level 7.8 L Phosphorus Level 3.0 Magnesium Level 2.0 Medications Medications Current Medications Dextrose/Sodium Chloride (D5-1/2ns) 1,000 ml @ 50 mls/hr Q20H IV Last administered on 06/08/17 03:47; Admin Dose 125 MLS/HR; Start 06/03/17 at 22: 43; Status Future Hold Ondansetron HCl 4 mg 4 mg Q6H PRN IV NAUSEA AND/OR VOMITING Last administered on 06/06/17 07:57; Admin Dose 4 MG; Start 06/03/17 at 23:00 Norepinephrine 16 mg/Dextrose 500 ml @ 1.87 mls/hr TITRATE IV Last administered on 06/04/17 08:14; Admin Dose 1.87 MLS/HR; Start 06/04/17 at 03: 00 Phenylephrine HCl/ Dextrose (Jc-Syneph/D5W) 500 ml @ 75 mls/hr TITRATE IV Last administered on 06/04/17 02:33; Admin Dose 37.5 MLS/HR; Start 06/04/17 at 01:30 Fentanyl 50 mcg 50 mcg Q3H PRN IV PAIN Last administered on 06/10/17 23:24; Admin Dose 50 MCG; Start 06/05/17 at 11:30 Piperacillin Sod/ Tazobactam Sod (Zosyn 3.375gm/ 100 ml (Pmx)) 100 ml @ 200 mls /hr Q6 IVPB Last administered on 06/11/17 06:03; Admin Dose 200 MLS/HR; Start 06/06/17 at 12:00 Pantoprazole (Protonix Iv) 40 mg DAILY@06 IV Last administered on 06/11/17 06 :04; Admin Dose 40 MG; Start 06/07/17 at 06:00 Metoprolol Succinate (Toprol Xl) 25 mg DAILY PO ; Start 06/07/17 at 15:30; Status Future Hold Metoprolol Tartrate 2.5 mg 2.5 mg Q6 IV Last administered on 06/11/17 06:04; Admin Dose 2.5 MG; Start 06/08/17 at 12:00 Acetaminophen (Ofirmev 1000mg/ 100ml Iv) 100 ml @ 400 mls/hr Q6H PRN IVPB FEVER; Start 06/08/17 at 16:00 Aspirin (Aspirin) 81 mg DAILY PO ; Start 06/09/17 at 16:30 Docusate Sodium (Colace) 100 mg BID PO ; Start 06/09/17 at 21:00 Memantine (Namenda) 10 mg BID PO Last administered on 06/09/17 20:43; Admin Dose 10 MG; Start 06/09/17 at 21:00 Psyllium Hydrophilic Mucilloid (Metamucil) 1 pkt BID PO Last administered on 20:44; Admin Dose 1 PKT; Start 06/09/17 at 21:00 Risperidone (Risperdal) 0.25 mg HS PO Last administered on 06/09/17 20:43; Admin Dose 0.25 MG; Start 06/09/17 at 21:00 Latanoprost (Xalatan) 1 drop HS BOTH EYES Last administered on 06/10/17 20:32 ; Admin Dose 1 DROP; Start 06/09/17 at 21:00 Nitroglycerin (Nitroglycerin ([place])) 1 spray PRN PRN TL CHEST PAIN; Start at 17:00 Albuterol 1 puff 1 puff Q4 PRN INH SHORTNESS OF BREATH; Start 06/09/17 at 16: 00 Amiodarone HCl/ Dextrose (Cordarone Iv/ D5W) 500 ml @ 0 mls/hr Q0M IV Last administered on 06/10/17 18:36; Admin Dose 16.7 MLS/HR; Start 06/10/17 at 11: 13; Stop 06/11/17 at 11:00 KIMI WOOD Jun 11, 2017 10:02
--- NOTE | 2017-06-11 10:16 | PN ---
Date/Time of Note Date/Time of Note DATE: 06/11/17 TIME: 10:10 Assessment/Plan Lines/Catheters [facility] Central Line [place] in Place [facility] Yes Assessment/Plan Chief Complaint/Hosp Course 1. Bowel obstruction 2/2 colon mass: CT: no ischemic bowel, circumferential colon mass; no bowel function as of yet: continue present treatment -IV antibiotics -IV fluids -Anticoagulation > held per gi -colonoscopy pending- ?stent placement for symptomatic relief -bioethics committee pending -cont ng for decompression -npo 2. Significant atherosclerosis and coronary artery disease -Patient high risk for any surgery -Cardiac optimization 3. Acute renal failure secondary to above: cr stable -Aggressive and judicious fluid management -per renal -Try to avoid nephrotoxic agents if possible 4. Coffee-ground emesis with possible upper GI bleed: h/h stable, no acute bleed from ng -Close monitoring and transfuse as needed -PPI 5. Anemia with possible blood loss -As above 6. Dysrhythmia history- episodes of vtach, now on amio drip again -Optimize lytes -Rate control -Anticoagulation 7. Acute hypokalemia: normalized 8. Obesity with BMI 32 9. Alzheimer's dementia, schizophrenia (paranoid) -Medical and psychiatric optimization -Patient has a conservator but no family. 10. Hypoalbuminemia with hypocalcemia: nutritional +/- inflammation -optimize nutrition as able -as above 11. Left pl effusion vs. pna -pulm toilet -supportive Thank you. Patient seen and examined in collaboration with Dr. Felton Zhang. Problems: Subjective 24 Hr Interval Summary Continues to be confused. Appears comfortable. No c/o abdominal pain. No bowel function. Continues to be on restraints. Continues on amio drip- currently sr. No fevers, chills, sob, congested cough, n/v/d/dysuria, cp. palpitations. C/o thirst. Exam/Review of Systems Vital Signs Vitals Vital Signs Date Time Temp Pulse Resp B/P Pulse Ox O2 Delivery O2 Flow Rate FiO2 06/11/17 09:00 72 16 155/63 06/11/17 08:45 81 06/11/17 07:00 97.8 06/11/17 06:00 Room Air 06/09/17 20:00 2.0 Intake and Output 06/10/17 06/10/17 06/11/17 15:00 23:00 07:00 Intake Total 233.6 ml 125.2 ml 233.6 ml Output Total 180 ml 360 ml 290 ml Balance 53.6 ml -234.8 ml -56.4 ml Exam Free Text/Dictation Constitutional: obese, awake Psych: confusion, anxious Head: atraumatic, normocephalic Eyes: PERRL, nl conjunctiva, No icteric ENMT: nl external ears & nose, No mucosa pink and moist Neck: jvd, non-tender, supple Respiratory: crackles, normal air movement, No congested cough, No labored breathing Cardiovascular: edema, sr, regular rate and rhythm- on amio drip Gastrointestinal: mod distended, min tender LLQ, No rebound or guarding, hypoactive bowel wounds Musculoskeletal: No joint tenderness, No nl extremities to inspection, No nl gait and stance Extremities: No calf tenderness, No cyanosis Neurological: No nl mental status, No nl strength Skin: No diaphoresis, No rash or lesions Lymph: nl lymph nodes, nontender Results Result Diagram: 06/11/17 0430 06/11/17 0430 BABS ROSE NP Jun 11, 2017 10:16
--- NOTE | 2017-06-11 13:46 | EN ---
Date/Time of Note Date/Time of Note DATE: 06/11/17 TIME: 13:42 Event Note Medicine Medicine Event Note Biomedical ethics committee consultation and recommendations 81-year-old male who is a resident of an extended care facility admitted with septic shock with abdominal pain. Initial evaluation was consistent with possible ischemic colitis. Patient has a baseline of advanced dementia. In addition the patient is under the guidance of the conservator's office. We are requested to make recommendations about ongoing care. Patient had acute kidney injury and required pressors. In the course of the workup it appears that there is in fact an abdominal mass which may be a colorectal carcinoma. The consultants feel that attempts at biopsy of the mass would be far more risky than beneficial i.e. the risks outweigh the benefits. In addition to this ongoing aggressive care is more likely to be of harm than of benefit. The consultants and primary team feel that further aggressive intervention would be futile and medically ineffective. Given the above it is the recommendations of the committee that the patient be transitioned over to DNR-DNI status and comfort measures only. As based on evaluation of the risks versus the benefits of the ongoing care and the likelihood of response to treatment. The primary care team is in agreement with this recommendation. Respectfully ALBARO Suazo MD, MD Jun 11, 2017 13:46
--- NOTE | 2017-06-11 14:07 | PN ---
Date/Time of Note Date/Time of Note DATE: 06/11/17 TIME: 13:58 Assessment/Plan VTE Prophylaxis VTE Prophylaxis Intervention: SCD's Lines/Catheters IV Catheter Type (from Nrs): Central Line Central line still needed: Yes (medication) Urinary Cath still in place: Yes Reason Cath still needed: other (indicate) (monitor out-put) Assessment/Plan Chief Complaint/Hosp Course Assessment: Sigmoid mass- identified on 2nd Ct scan Previously Suspected pneumatosis/ likely related to Ischemic colitis- no long identified Alzheimer's dementia Hypokalemia/ treated improved Arrhythmia- 24 beats of v-tach Plan: Based on decision of bioethics patient is now a DNR/DNI and will only receive comfort measures. The consultants and primary team feel that further aggressive intervention would be futile and medically ineffective. Pt seen in collaboration with Dr. Davis Subjective: Course reviewed with nursing staff Patient interviewed and examined All labs, imaging and other results reviewed Based on the recommendations of the Bioethics team patient will only be comfort measures. Code status is DNR/DNI Exam: General: Confused Skin: No lesions, no stigmata chronic liver disease, no evidence of bleeding diathesis Lymphatic: No palpable lymphadenopathy HEENT: No lesions Cardiovascular: Heart: no cyanosis, clubbing or edemas. No pulsatile abdominal mass Respiratory: diminished Gastrointestinal and Liver: Abdomen: Soft, moderate diffuse tenderness more so in the lower abdomen bilaterally, moderately distended, no hernias, no masses, no organomegaly, no ascites, no guarding, no rebound tenderness, hypoactive bowel sounds. Extremities: No cyanosis, clubbing, or edema. Problems: Exam/Review of Systems Vital Signs Vitals Vital Signs Date Time Temp Pulse Resp B/P Pulse Ox O2 Delivery O2 Flow Rate FiO2 06/11/17 12:00 76 06/11/17 09:00 16 155/63 06/11/17 08:45 81 06/11/17 07:00 97.8 06/11/17 06:00 Room Air 06/09/17 20:00 2.0 Intake and Output 06/10/17 06/10/17 06/11/17 15:00 23:00 07:00 Intake Total 233.6 ml 125.2 ml 233.6 ml Output Total 180 ml 360 ml 290 ml Balance 53.6 ml -234.8 ml -56.4 ml Results Result Diagram: 06/11/170 06/11/17 0430 Results 24 hrs Laboratory Tests Test 06/11/17 04:30 White Blood Count 10.5 Red Blood Count 3.50 L Hemoglobin 9.7 L Hematocrit 30.0 L Mean Corpuscular Volume 85.7 Mean Corpuscular Hemoglobin 27.7 L Mean Corpuscular Hemoglobin Concent 32.3 Red Cell Distribution Width 20.2 H Platelet Count 230 Mean Platelet Volume 10.7 H Neutrophils % 78.9 H Lymphocytes % 11.3 L Monocytes % 8.0 Eosinophils % 0.6 Basophils % 0.1 Nucleated Red Blood Cells % 0.0 Neutrophils # 8.3 H Lymphocytes # 1.2 Monocytes # 0.8 Eosinophils # 0.1 Basophils # 0.0 Nucleated Red Blood Cells # 0.0 Sodium Level 144 Potassium Level 3.5 Chloride Level 113 H Carbon Dioxide Level 21 Anion Gap 14 Blood Urea Nitrogen 19 Creatinine 1.31 H Glucose Level 86 Calcium Level 7.8 L Phosphorus Level 3.0 Magnesium Level 2.0 Medications Medications Current Medications Dextrose/Sodium Chloride (D5-1/2ns) 1,000 ml @ 50 mls/hr Q20H IV Last administered on 06/08/17 03:47; Admin Dose 125 MLS/HR; Start 06/03/17 at 22: 43; Status Future Hold Ondansetron HCl 4 mg 4 mg Q6H PRN IV NAUSEA AND/OR VOMITING Last administered on 06/06/17 07:57; Admin Dose 4 MG; Start 06/03/17 at 23:00 Norepinephrine 16 mg/Dextrose 500 ml @ 1.87 mls/hr TITRATE IV Last administered on 06/04/17 08:14; Admin Dose 1.87 MLS/HR; Start 06/04/17 at 03: 00 Phenylephrine HCl/ Dextrose (Jc-Syneph/D5W) 500 ml @ 75 mls/hr TITRATE IV Last administered on 06/04/17 02:33; Admin Dose 37.5 MLS/HR; Start 06/04/17 at 01:30 Fentanyl 50 mcg 50 mcg Q3H PRN IV PAIN Last administered on 06/10/17 23:24; Admin Dose 50 MCG; Start 06/05/17 at 11:30 Piperacillin Sod/ Tazobactam Sod (Zosyn 3.375gm/ 100 ml (Pmx)) 100 ml @ 200 mls /hr Q6 IVPB Last administered on 06/11/17 12:01; Admin Dose 200 MLS/HR; Start 06/06/17 at 12:00 Pantoprazole (Protonix Iv) 40 mg DAILY@06 IV Last administered on 06/11/17 06 :04; Admin Dose 40 MG; Start 06/07/17 at 06:00 Metoprolol Succinate (Toprol Xl) 25 mg DAILY PO ; Start 06/07/17 at 15:30; Status Future Hold Metoprolol Tartrate 2.5 mg 2.5 mg Q6 IV Last administered on 06/11/17 12:01; Admin Dose 2.5 MG; Start 06/08/17 at 12:00 Acetaminophen (Ofirmev 1000mg/ 100ml Iv) 100 ml @ 400 mls/hr Q6H PRN IVPB FEVER; Start 06/08/17 at 16:00 Aspirin (Aspirin) 81 mg DAILY PO ; Start 06/09/17 at 16:30 Docusate Sodium (Colace) 100 mg BID PO ; Start 06/09/17 at 21:00 Memantine (Namenda) 10 mg BID PO Last administered on 06/09/17 20:43; Admin Dose 10 MG; Start 06/09/17 at 21:00 Psyllium Hydrophilic Mucilloid (Metamucil) 1 pkt BID PO Last administered on 20:44; Admin Dose 1 PKT; Start 06/09/17 at 21:00 Risperidone (Risperdal) 0.25 mg HS PO Last administered on 06/09/17 20:43; Admin Dose 0.25 MG; Start 06/09/17 at 21:00 Latanoprost (Xalatan) 1 drop HS BOTH EYES Last administered on 06/10/17 20:32 ; Admin Dose 1 DROP; Start 06/09/17 at 21:00 Nitroglycerin (Nitroglycerin ([place])) 1 spray PRN PRN TL CHEST PAIN; Start at 17:00 Albuterol (Ventolin Hfa) 1 puff Q4 PRN INH SHORTNESS OF BREATH; Start at 16:00 Enoxaparin Sodium (Lovenox) 40 mg DAILY SC ; Start 06/12/17 at 09:00 JOSS ESPINOSA Jun 11, 2017 14:07
--- NOTE | 2017-06-11 15:13 | PN ---
Date/Time of Note Date/Time of Note DATE: 06/11/17 TIME: 14:58 Assessment/Plan VTE Prophylaxis VTE Prophylaxis Intervention: LMWH Assessment/Plan Chief Complaint/Hosp Course 1. Colonic mass in the sigmoid Patient has severe dementia and poor functional status, surgery does not feel the patient is a good candidate for a hemicolectomy Have discussed with GI patient may benefit from stent placement adjacent to the mass for comfort Bioethics meeting held today because of patient's poor functional status and not being a candidate for surgery recommendation is for DNR status and palliation Palliative care on the case 2. Severe dementia Palliative care 3. NSVT-stable Cardiology consultation appreciated, patient is clear from a cardiac standpoint for stent placement within the colon 4. SIRS-no evidence of infection DC Zosyn 5. Acute kidney injury secondary to hemodynamics-improving Nephrology on the case Prophylaxis: Lovenox Problems: Subjective 24 Hr Interval Summary Constitutional: disoriented Exam/Review of Systems Vital Signs Vitals Vital Signs Date Time Temp Pulse Resp B/P Pulse Ox O2 Delivery O2 Flow Rate FiO2 06/11/17 12:00 76 06/11/17 09:00 16 155/63 06/11/17 08:45 81 06/11/17 07:00 97.8 06/11/17 06:00 Room Air 06/09/17 20:00 2.0 Intake and Output 06/10/17 06/10/17 06/11/17 15:00 23:00 07:00 Intake Total 233.6 ml 125.2 ml 233.6 ml Output Total 180 ml 360 ml 290 ml Balance 53.6 ml -234.8 ml -56.4 ml Exam Psych: confusion Respiratory: clear to auscultation Cardiovascular: regular rate and rhythm Gastrointestinal: soft, No distended Musculoskeletal: nl extremities to inspection Results Result Diagram: 06/11/17 0430 06/11/17 0430 Results 24 hrs Laboratory Tests Test 06/11/17 04:30 White Blood Count 10.5 Red Blood Count 3.50 L Hemoglobin 9.7 L Hematocrit 30.0 L Mean Corpuscular Volume 85.7 Mean Corpuscular Hemoglobin 27.7 L Mean Corpuscular Hemoglobin Concent 32.3 Red Cell Distribution Width 20.2 H Platelet Count 230 Mean Platelet Volume 10.7 H Neutrophils % 78.9 H Lymphocytes % 11.3 L Monocytes % 8.0 Eosinophils % 0.6 Basophils % 0.1 Nucleated Red Blood Cells % 0.0 Neutrophils # 8.3 H Lymphocytes # 1.2 Monocytes # 0.8 Eosinophils # 0.1 Basophils # 0.0 Nucleated Red Blood Cells # 0.0 Sodium Level 144 Potassium Level 3.5 Chloride Level 113 H Carbon Dioxide Level 21 Anion Gap 14 Blood Urea Nitrogen 19 Creatinine 1.31 H Glucose Level 86 Calcium Level 7.8 L Phosphorus Level 3.0 Magnesium Level 2.0 Medications Medications Current Medications Dextrose/Sodium Chloride (D5-1/2ns) 1,000 ml @ 50 mls/hr Q20H IV Last administered on 06/08/17 03:47; Admin Dose 125 MLS/HR; Start 06/03/17 at 22: 43; Status Future Hold Ondansetron HCl 4 mg 4 mg Q6H PRN IV NAUSEA AND/OR VOMITING Last administered on 06/06/17 07:57; Admin Dose 4 MG; Start 06/03/17 at 23:00 Norepinephrine 16 mg/Dextrose 500 ml @ 1.87 mls/hr TITRATE IV Last administered on 06/04/17 08:14; Admin Dose 1.87 MLS/HR; Start 06/04/17 at 03: 00 Phenylephrine HCl/ Dextrose (Jc-Syneph/D5W) 500 ml @ 75 mls/hr TITRATE IV Last administered on 06/04/17 02:33; Admin Dose 37.5 MLS/HR; Start 06/04/17 at 01:30 Fentanyl 50 mcg 50 mcg Q3H PRN IV PAIN Last administered on 06/10/17 23:24; Admin Dose 50 MCG; Start 06/05/17 at 11:30 Piperacillin Sod/ Tazobactam Sod (Zosyn 3.375gm/ 100 ml (Pmx)) 100 ml @ 200 mls /hr Q6 IVPB Last administered on 06/11/17 12:01; Admin Dose 200 MLS/HR; Start 06/06/17 at 12:00 Pantoprazole (Protonix Iv) 40 mg DAILY@06 IV Last administered on 06/11/17 06 :04; Admin Dose 40 MG; Start 06/07/17 at 06:00 Metoprolol Succinate (Toprol Xl) 25 mg DAILY PO ; Start 06/07/17 at 15:30; Status Future Hold Metoprolol Tartrate 2.5 mg 2.5 mg Q6 IV Last administered on 06/11/17 12:01; Admin Dose 2.5 MG; Start 06/08/17 at 12:00 Acetaminophen (Ofirmev 1000mg/ 100ml Iv) 100 ml @ 400 mls/hr Q6H PRN IVPB FEVER; Start 06/08/17 at 16:00 Aspirin (Aspirin) 81 mg DAILY PO ; Start 06/09/17 at 16:30 Docusate Sodium (Colace) 100 mg BID PO ; Start 06/09/17 at 21:00 Memantine (Namenda) 10 mg BID PO Last administered on 06/09/17 20:43; Admin Dose 10 MG; Start 06/09/17 at 21:00 Psyllium Hydrophilic Mucilloid (Metamucil) 1 pkt BID PO Last administered on 20:44; Admin Dose 1 PKT; Start 06/09/17 at 21:00 Risperidone (Risperdal) 0.25 mg HS PO Last administered on 06/09/17 20:43; Admin Dose 0.25 MG; Start 06/09/17 at 21:00 Latanoprost (Xalatan) 1 drop HS BOTH EYES Last administered on 06/10/17 20:32 ; Admin Dose 1 DROP; Start 06/09/17 at 21:00 Nitroglycerin (Nitroglycerin ([place])) 1 spray PRN PRN TL CHEST PAIN; Start at 17:00 Albuterol (Ventolin Hfa) 1 puff Q4 PRN INH SHORTNESS OF BREATH; Start at 16:00 Enoxaparin Sodium (Lovenox) 40 mg DAILY SC ; Start 06/12/17 at 09:00 PILAR DE JESUS Jun 11, 2017 15:08
[2017-06-11] MEDS: LATANOPROST 0.005% 2.5 ML OPH BOTH EYES SCH (21:00)
[2017-06-12] VITALS (22 sets, daily range): BP systolic 102–170; BP diastolic 57–87; PULSE 77–87; RESP 16–22
[2017-06-12] MEDS: morphine 4 MG/ML VIAL IV PRN ×2 (00:20→05:49)
[2017-06-12] MEDS: DEXTROSE 5%-0.45% NACL 1,000 ML IV SCH ×2 (00:21→12:39)
[2017-06-12] MEDS: METOPROLOL 5 MG INJ IV SCH ×3 (00:24→12:40)
[2017-06-12 08:14] LABS: BASOPHILS % 0.2 % (0.0-2.0); EOSINOPHILS # 0.1 10^3/ul (0.0-0.5); EOSINOPHILS % 0.6 % (0.0-7.0); HEMATOCRIT 30.8 % (42.0-52.0); HEMOGLOBIN 9.7 g/dl (14.0-18.0); LYMPHOCYTES # 1.2 10^3/ul (0.8-2.9); LYMPHOCYTES % 9.5 % (15.0-51.0); MEAN CORPUSCULAR HEMOGLOBIN 27.2 pg (29.0-33.0); MEAN CORPUSCULAR HGB CONC 31.5 g/dl (32.0-37.0); MEAN CORPUSCULAR VOLUME 86.3 fl (82.0-101.0); MEAN PLATELET VOLUME 10.1 fl (7.4-10.4); MONOCYTE # 0.9 10^3/ul (0.3-0.9); MONOCYTES % 6.8 % (0.0-11.0); NEUTROPHIL # 10.4 10^3/ul (1.6-7.5); PLATELET COUNT 220 10^3/UL (140-415); RED BLOOD COUNT 3.57 10^6/ul (4.70-6.10); RED CELL DISTRIBUTION WIDTH 19.9 % (11.5-14.5); WHITE BLOOD COUNT 12.7 10^3/ul (4.8-10.8)
[2017-06-12 08:29] LABS: CREATININE 1.14 mg/dl (0.61-1.24); PHOSPHORUS 2.4 mg/dl (2.5-4.9); POTASSIUM 3.2 mmol/L (3.5-5.1)
--- NOTE | 2017-06-12 08:31 | PN ---
DATE: 06/12/2017 SUBJECTIVE: The patient is in serious condition. The patient was transferred from intensive care [facility] to telemetry. No other events noted. OBJECTIVE: VITAL SIGNS: Blood pressure 102/57, temperature 98.4, pulse 69, respiration 19. HEENT: Head is normocephalic. NECK: Supple. HEART: Regular rate. LUNGS: Show diminished breath sounds at the base. ABDOMEN: Soft, nontender to palpation. No rebound or guarding. EXTREMITIES: Negative for clubbing, cyanosis, no edema. DERMATOLOGIC: No rashes. MUSCULOSKELETAL: No joint effusions. NEUROLOGIC: No change in exam. MEDICATIONS: Reviewed. LABORATORY DATA: Currently pending. ASSESSMENT AND PLAN: 1. Nonoliguric acute kidney injury with unknown baseline creatinine. Etiology is secondary to hemo dynamics. Renal function has been stable. Continue current treatment plan, supportive care, renall y dose all meds. 2. Hyponatremia, improved. Continue hypertonic fluids. 3. Mineral bone disorder. Monitor calcium and phosphorus levels. 4. Anemia. Monitor hemoglobin and hematocrit levels. 5. Sepsis, status post shock. Continue current antibiotic regimen. 6. 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 Continue to monitor. Follow up with primary team. 7. Coronary artery disease. Continue medical management. 8. Acute encephalopathy with Alzheimer dementia. 9. Atrial fibrillation, continue current treatment plan. DISPOSITION: Please note, the patient has been seen by palliative care. Dictated By: GISELA GUARDADO/ALLEY Conf#: [id number] DID#: [id number]
[2017-06-12] MEDS ORDERED: ENOXAPARIN 40 MG/0.4 ML SYG SC SCH (09:00)
--- NOTE | 2017-06-12 09:10 | RADRPT ---
PROCEDURE: XR Chest. CLINICAL INDICATION: Nasogastric tube placement . TECHNIQUE: Single frontal chest x-ray. COMPARISON: 06/03/2017 FINDINGS: There is a nasogastric tube in place with tip extending into the stomach. There is a right jugular c entral venous catheter with tip overlying superior vena cava. . Cardiomegaly with calcific atheroscl erosis of the aorta is present.. Low lung volumes with elevated right hemidiaphragm and mild bibasil ar atelectasis. There are no acute alveolar infiltrates, edema, or effusions.. The osseous structure s are intact. IMPRESSION: Nasogastric tube in place with tip extending to stomach. Right-sided central venous catheter in place. Cardiomegaly with calcified aorta.. Low lung volumes with elevated right hemidiaphragm and mild bibasilar atelectasis. RPTAT: GG .Jones Hobsno MD, Date Time Electronically viewed and signed by .Jones Hobson MD, on 06/12/2017 09:10 .L/
[2017-06-12] MEDS ORDERED: POTASSIUM CHLORIDE 250 ML IVPB ONE (10:00)
--- NOTE | 2017-06-12 13:02 | PN ---
Date/Time of Note Date/Time of Note DATE: 06/12/17 TIME: 12:58 Assessment/Plan VTE Prophylaxis VTE Prophylaxis Intervention: SCD's Lines/Catheters IV Catheter Type (from Nrs): Central Line Central line still needed: No Urinary Cath still in place: Yes Reason Cath still needed: other (indicate) (Monitor output) Assessment/Plan Chief Complaint/Hosp Course Assessment: Sigmoid mass- identified on 2nd Ct scan Previously Suspected pneumatosis/ likely related to Ischemic colitis- no long identified Alzheimer's dementia Hypokalemia/ treated improved Arrhythmia- 24 beats of v-tach Plan: Based on decision of bioethics patient is now a DNR/DNI and will only receive comfort measures. The consultants and primary team feel that further aggressive intervention would be futile and medically ineffective. There is some concern rectal mass may cause discomfort, question if rectal stent should be placed Procedure is invasive, and patient would need to be a full code. Currently patient is comfortable without any apparent signs of pain will continue to monitor need of rectal stent placement Pt seen in collaboration with Dr. Davis Subjective: Course reviewed with nursing staff Patient interviewed and examined All labs, imaging and other results reviewed Currently sleeping, spoke with nurse, patient does not appear to be uncomfortable or in pain at this time Based on the recommendations of the Bioethics team patient will only be comfort measures. Code status is DNR/DNI Exam: General: Confused Skin: No lesions, no stigmata chronic liver disease, no evidence of bleeding diathesis Lymphatic: No palpable lymphadenopathy HEENT: No lesions Cardiovascular: Heart: no cyanosis, clubbing or edemas. No pulsatile abdominal mass Respiratory: diminished Gastrointestinal and Liver: Abdomen: Soft, moderate diffuse tenderness more so in the lower abdomen bilaterally, moderately distended, no hernias, no masses, no organomegaly, no ascites, no guarding, no rebound tenderness, hypoactive bowel sounds. Extremities: No cyanosis, clubbing, or edema. Problems: Exam/Review of Systems Vital Signs Vitals Vital Signs Date Time Temp Pulse Resp B/P Pulse Ox O2 Delivery O2 Flow Rate FiO2 06/12/17 12:48 83 06/12/17 11:19 99.1 21 143/66 100 06/11/17 06:00 Room Air 06/09/17 20:00 2.0 Intake and Output 06/11/17 06/11/17 06/12/17 15:00 23:00 07:00 Intake Total 325.25 ml 0 ml 0 ml Output Total 300 ml 170 ml 385 ml Balance 25.25 ml -170 ml -385 ml Results Result Diagram: 06/12/17 0758 06/12/17 0758 Results 24 hrs Laboratory Tests Test 06/12/17 07:58 White Blood Count 12.7 #H Red Blood Count 3.57 L Hemoglobin 9.7 L Hematocrit 30.8 L Mean Corpuscular Volume 86.3 Mean Corpuscular Hemoglobin 27.2 L Mean Corpuscular Hemoglobin Concent 31.5 L Red Cell Distribution Width 19.9 H Platelet Count 220 Mean Platelet Volume 10.1 Neutrophils % 82.0 H Lymphocytes % 9.5 L Monocytes % 6.8 Eosinophils % 0.6 Basophils % 0.2 Nucleated Red Blood Cells % 0.0 Neutrophils # 10.4 H Lymphocytes # 1.2 Monocytes # 0.9 Eosinophils # 0.1 Basophils # 0.0 Nucleated Red Blood Cells # 0.0 Sodium Level 146 H Potassium Level 3.2 L Chloride Level 116 H Carbon Dioxide Level 23 Anion Gap 10 Blood Urea Nitrogen 16 Creatinine 1.14 Glucose Level 107 Calcium Level 8.0 L Phosphorus Level 2.4 L Magnesium Level 2.0 Medications Medications Current Medications Dextrose/Sodium Chloride (D5-1/2ns) 1,000 ml @ 50 mls/hr Q20H IV Last administered on 06/08/17 03:47; Admin Dose 125 MLS/HR; Start 06/03/17 at 22: 43; Status Future Hold Ondansetron HCl (Zofran Inj) 4 mg Q6H PRN IV NAUSEA AND/OR VOMITING Last administered on 06/06/17 07:57; Admin Dose 4 MG; Start 06/03/17 at 23:00 Fentanyl (Sublimaze) 50 mcg Q3H PRN IV PAIN Last administered on 06/10/17 23: 24; Admin Dose 50 MCG; Start 06/05/17 at 11:30 Metoprolol Tartrate 2.5 mg 2.5 mg Q6 IV Last administered on 06/12/17 12:40; Admin Dose 2.5 MG; Start 06/08/17 at 12:00 Acetaminophen (Ofirmev 1000mg/ 100ml Iv) 100 ml @ 400 mls/hr Q6H PRN IVPB FEVER; Start 06/08/17 at 16:00 Latanoprost (Xalatan) 1 drop HS BOTH EYES Last administered on 06/10/17 20:32 ; Admin Dose 1 DROP; Start 06/09/17 at 21:00 Nitroglycerin (Nitroglycerin ([place])) 1 spray PRN PRN TL CHEST PAIN; Start at 17:00 Albuterol (Ventolin Hfa) 1 puff Q4 PRN INH SHORTNESS OF BREATH; Start at 16:00 Enoxaparin Sodium (Lovenox) 40 mg DAILY SC Last administered on 06/12/17 09: 49; Admin Dose 40 MG; Start 06/12/17 at 09:00 Morphine Sulfate 3 mg 3 mg Q4H PRN IV PAIN LEVEL 6-10 Last administered on 05:49; Admin Dose 3 MG; Start 06/12/17 at 00:30 Dextrose/Sodium Chloride 1,000 ml @ 75 mls/hr [id number] IV Last administered on 06/12/17 12:39; Admin Dose 75 MLS/HR; Start 06/12/17 at 00:30 Potassium Chloride (KCl 40 MEQ/250 ML NS) 250 ml @ 62.5 mls/hr ONCE ONCE IVPB Last administered on 06/12/17 12:38; Admin Dose 62.5 MLS/HR; Start at 10:00; Stop 06/12/17 at 13:59 JOSS ESPINOSA Jun 12, 2017 13:02
--- NOTE | 2017-06-12 13:59 | PN ---
Date/Time of Note Date/Time of Note DATE: 06/12/17 TIME: 13:56 Assessment/Plan Lines/Catheters IV Catheter Type (from Nrs): Central Line Mcknight in Place (from Nrs): Yes Assessment/Plan Chief Complaint/Hosp Course 1. Bowel obstruction 2/2 colon mass: CT: no ischemic bowel, circumferential colon mass; no bowel function as of yet: continue present treatment -IV fluids -colonoscopy pending- ?stent placement for symptomatic relief -bioethics committee held- patient now dnr; hospice eval ongoing. -cont ng for decompression -npo 2. Significant atherosclerosis and coronary artery disease -Patient high risk for any surgery -Cardiac optimization 3. Acute renal failure secondary to above: cr stable -Try to avoid nephrotoxic agents if possible 4. Coffee-ground emesis with possible upper GI bleed: h/h stable, no acute bleed from ng -PPI 5. Anemia with possible blood loss -As above 6. Dysrhythmia history- episodes of vtach, now on amio drip again -Optimize lytes -Rate control -Anticoagulation 7. Acute hypokalemia: normalized 8. Obesity with BMI 32 9. Alzheimer's dementia, schizophrenia (paranoid) -supportive 10. Hypoalbuminemia with hypocalcemia: nutritional +/- inflammation -optimize nutrition as able -as above 11. Left pl effusion vs. pna -supportive Thank you. Patient seen and examined in collaboration with Dr. Felton Zhang. Problems: Subjective 24 Hr Interval Summary Feels ok. No abdominal pain/discomfort. Currently being evaluated by hospice. Bioethics meeting held- patient now DNR Exam/Review of Systems Vital Signs Vitals Vital Signs Date Time Temp Pulse Resp B/P Pulse Ox O2 Delivery O2 Flow Rate FiO2 06/12/17 12:48 83 06/12/17 11:19 99.1 21 143/66 100 06/11/17 06:00 Room Air 06/09/17 20:00 2.0 Intake and Output 06/11/17 06/11/17 06/12/17 15:00 23:00 07:00 Intake Total 325.25 ml 0 ml 0 ml Output Total 300 ml 170 ml 385 ml Balance 25.25 ml -170 ml -385 ml Exam Free Text/Dictation Constitutional: obese, awake Psych: confusion, anxious Head: atraumatic, normocephalic Eyes: PERRL, nl conjunctiva, No icteric ENMT: nl external ears & nose, No mucosa pink and moist Neck: jvd, non-tender, supple Respiratory: crackles, normal air movement, No congested cough, No labored breathing Cardiovascular: edema, sr, regular rate and rhythm- on amio drip Gastrointestinal: mod distended, min tender LLQ, No rebound or guarding, hypoactive bowel wounds Musculoskeletal: No joint tenderness, No nl extremities to inspection, No nl gait and stance Extremities: No calf tenderness, No cyanosis Neurological: No nl mental status, No nl strength Skin: No diaphoresis, No rash or lesions Lymph: nl lymph nodes, nontender Results Result Diagram: 06/12/17 0758 06/12/17 0758 BABS ROSE NP Jun 12, 2017 13:59
--- NOTE | 2017-06-12 16:32 | PN ---
Date/Time of Note Date/Time of Note DATE: 06/12/17 TIME: 16:30 Assessment/Plan VTE Prophylaxis VTE Prophylaxis Intervention: other Assessment/Plan Chief Complaint/Hosp Course 1. Colonic mass in the sigmoid Patient has severe dementia and poor functional status, surgery does not feel the patient is a good candidate for a hemicolectomy Have discussed rectal stent placement with GI, risk of rectal stent placement exceeds benefit hence will not be done Bioethics meeting held because of patient's poor functional status and not being a candidate for surgery recommendation is for DNR status and palliation, order for hospice eval placed Palliative care on the case 2. Severe dementia Palliative care 3. NSVT-stable Cardiology consultation appreciated, patient is clear from a cardiac standpoint for stent placement within the colon 4. SIRS-no evidence of infection DC'd Zosyn 5. Acute kidney injury secondary to hemodynamics Nephrology on the case Prophylaxis: None indicated Problems: Subjective 24 Hr Interval Summary Constitutional: disoriented Exam/Review of Systems Vital Signs Vitals Vital Signs Date Time Temp Pulse Resp B/P Pulse Ox O2 Delivery O2 Flow Rate FiO2 06/12/17 16:00 98.6 86 18 137/65 98 06/11/17 06:00 Room Air 06/09/17 20:00 2.0 Intake and Output 06/11/17 06/11/17 06/12/17 15:00 23:00 07:00 Intake Total 325.25 ml 0 ml 0 ml Output Total 300 ml 170 ml 385 ml Balance 25.25 ml -170 ml -385 ml Exam Psych: confusion Respiratory: clear to auscultation Cardiovascular: regular rate and rhythm Gastrointestinal: soft, No distended Musculoskeletal: nl extremities to inspection Results Result Diagram: 06/12/17 0758 06/12/17 0758 Results 24 hrs Laboratory Tests Test 06/12/17 07:58 White Blood Count 12.7 #H Red Blood Count 3.57 L Hemoglobin 9.7 L Hematocrit 30.8 L Mean Corpuscular Volume 86.3 Mean Corpuscular Hemoglobin 27.2 L Mean Corpuscular Hemoglobin Concent 31.5 L Red Cell Distribution Width 19.9 H Platelet Count 220 Mean Platelet Volume 10.1 Neutrophils % 82.0 H Lymphocytes % 9.5 L Monocytes % 6.8 Eosinophils % 0.6 Basophils % 0.2 Nucleated Red Blood Cells % 0.0 Neutrophils # 10.4 H Lymphocytes # 1.2 Monocytes # 0.9 Eosinophils # 0.1 Basophils # 0.0 Nucleated Red Blood Cells # 0.0 Sodium Level 146 H Potassium Level 3.2 L Chloride Level 116 H Carbon Dioxide Level 23 Anion Gap 10 Blood Urea Nitrogen 16 Creatinine 1.14 Glucose Level 107 Calcium Level 8.0 L Phosphorus Level 2.4 L Magnesium Level 2.0 Medications Medications Current Medications Dextrose/Sodium Chloride (D5-1/2ns) 1,000 ml @ 50 mls/hr Q20H IV Last administered on 06/08/17 03:47; Admin Dose 125 MLS/HR; Start 06/03/17 at 22: 43; Status Future Hold Ondansetron HCl (Zofran Inj) 4 mg Q6H PRN IV NAUSEA AND/OR VOMITING Last administered on 06/06/17 07:57; Admin Dose 4 MG; Start 06/03/17 at 23:00 Fentanyl (Sublimaze) 50 mcg Q3H PRN IV PAIN Last administered on 06/10/17 23: 24; Admin Dose 50 MCG; Start 06/05/17 at 11:30 Metoprolol Tartrate 2.5 mg 2.5 mg Q6 IV Last administered on 06/12/17 12:40; Admin Dose 2.5 MG; Start 06/08/17 at 12:00 Acetaminophen (Ofirmev 1000mg/ 100ml Iv) 100 ml @ 400 mls/hr Q6H PRN IVPB FEVER; Start 06/08/17 at 16:00 Latanoprost (Xalatan) 1 drop HS BOTH EYES Last administered on 06/10/17 20:32 ; Admin Dose 1 DROP; Start 06/09/17 at 21:00 Nitroglycerin (Nitroglycerin ([place])) 1 spray PRN PRN TL CHEST PAIN; Start at 17:00 Albuterol (Ventolin Hfa) 1 puff Q4 PRN INH SHORTNESS OF BREATH; Start at 16:00 Enoxaparin Sodium (Lovenox) 40 mg DAILY SC Last administered on 06/12/17 09: 49; Admin Dose 40 MG; Start 06/12/17 at 09:00 Morphine Sulfate 3 mg 3 mg Q4H PRN IV PAIN LEVEL 6-10 Last administered on 05:49; Admin Dose 3 MG; Start 06/12/17 at 00:30 Dextrose/Sodium Chloride (D5-1/2ns) 1,000 ml @ 75 mls/hr [id number] IV Last administered on 06/12/17t 12:39; Admin Dose 75 MLS/HR; Start 06/12/17 at 00:30 PILAR DE JESUS Jun 12, 2017 16:32
--- NOTE | 2017-06-12 17:00 | CONS ---
Date/Time of Note Date/Time of Note DATE: 06/12/17 TIME: 16:57 Assessment/Plan Assessment/Plan Chief Complaint/Hosp Course NSVT: Had 24 beats of monomorphic, nonsustained VT 06/07. EF is preserved though LAD territory wall motion abnormalities. Also had a mild NSTEMI and definitely has underlying CAD. Electrolyte disturbances were also contributing. He has not had recurrence since. NSTEMI: Trop up to 1.4 and downtrended on admission. Still likely type II in setting of septic shock and renal failure. Certainly has underlying CAD but he is not a cath candidate. No e/o CHF by exam. Sigmoid mass with bowel obstruction Acute renal failure: Resolved but now worse but stable Septic shock: now resolved and off pressors H/o CAD with unknown details Dementia Schizophrenia -continue IV metopolol 2.5mg q6h to help control NSVT, switch to PO when able -replete lytes, keep Mg >2, K >4 -hospice evaluation pending Problems: Consultation Date/Type/Reason Admit Date/Time Jun 03, 2017 at 20:38 Initial Consult Date 06/08/17 Type of Consultation: Cardiology 24 HR Interval Summary Free Text/Dictation Had bioethics meeting, patient now DNR/DNI and hospice referral has been placed. Detailed Summary Additional Comments Unable to obtain review of systems due to patient's mental status. Exam/Review of Systems Vital Signs Vitals Vital Signs Date Time Temp Pulse Resp B/P Pulse Ox O2 Delivery O2 Flow Rate FiO2 06/12/17 16:00 98.6 86 18 137/65 98 06/11/17 06:00 Room Air 06/09/17 20:00 2.0 Intake and Output 06/11/17 06/11/17 06/12/17 15:00 23:00 07:00 Intake Total 325.25 ml 0 ml 0 ml Output Total 300 ml 170 ml 385 ml Balance 25.25 ml -170 ml -385 ml Exam Constitutional: alert, No oriented Psych: no complaints Head: atraumatic, normocephalic Neck: No jvd Respiratory: clear to auscultation, No wheezing Cardiovascular: regular rate and rhythm, systolic murmur (2/6 CORRINA), No edema Gastrointestinal: non-tender, soft Neurological: No nl mental status, No nl speech Results Result Diagram: 06/12/17 0758 06/12/17 0758 Results 24 hrs Laboratory Tests Test 06/12/17 07:58 White Blood Count 12.7 #H Red Blood Count 3.57 L Hemoglobin 9.7 L Hematocrit 30.8 L Mean Corpuscular Volume 86.3 Mean Corpuscular Hemoglobin 27.2 L Mean Corpuscular Hemoglobin Concent 31.5 L Red Cell Distribution Width 19.9 H Platelet Count 220 Mean Platelet Volume 10.1 Neutrophils % 82.0 H Lymphocytes % 9.5 L Monocytes % 6.8 Eosinophils % 0.6 Basophils % 0.2 Nucleated Red Blood Cells % 0.0 Neutrophils # 10.4 H Lymphocytes # 1.2 Monocytes # 0.9 Eosinophils # 0.1 Basophils # 0.0 Nucleated Red Blood Cells # 0.0 Sodium Level 146 H Potassium Level 3.2 L Chloride Level 116 H Carbon Dioxide Level 23 Anion Gap 10 Blood Urea Nitrogen 16 Creatinine 1.14 Glucose Level 107 Calcium Level 8.0 L Phosphorus Level 2.4 L Magnesium Level 2.0 Medications Medications Current Medications Dextrose/Sodium Chloride (D5-1/2ns) 1,000 ml @ 50 mls/hr Q20H IV Last administered on 06/08/17 03:47; Admin Dose 125 MLS/HR; Start 06/03/17 at 22: 43; Status Future Hold Ondansetron HCl (Zofran Inj) 4 mg Q6H PRN IV NAUSEA AND/OR VOMITING Last administered on 06/06/17 07:57; Admin Dose 4 MG; Start 06/03/17 at 23:00 Fentanyl (Sublimaze) 50 mcg Q3H PRN IV PAIN Last administered on 06/10/17 23: 24; Admin Dose 50 MCG; Start 06/05/17 at 11:30 Metoprolol Tartrate 2.5 mg 2.5 mg Q6 IV Last administered on 06/12/17 12:40; Admin Dose 2.5 MG; Start 06/08/17 at 12:00 Acetaminophen (Ofirmev 1000mg/ 100ml Iv) 100 ml @ 400 mls/hr Q6H PRN IVPB FEVER; Start 06/08/17 at 16:00 Latanoprost (Xalatan) 1 drop HS BOTH EYES Last administered on 06/10/17 20:32 ; Admin Dose 1 DROP; Start 06/09/17 at 21:00 Nitroglycerin (Nitroglycerin ([place])) 1 spray PRN PRN TL CHEST PAIN; Start at 17:00 Albuterol (Ventolin Hfa) 1 puff Q4 PRN INH SHORTNESS OF BREATH; Start at 16:00 Morphine Sulfate 3 mg 3 mg Q4H PRN IV PAIN LEVEL 6-10 Last administered on 05:49; Admin Dose 3 MG; Start 06/12/17 at 00:30 Dextrose/Sodium Chloride (D5-1/2ns) 1,000 ml @ 75 mls/hr [id number] IV Last administered on 06/12/17 12:39; Admin Dose 75 MLS/HR; Start 06/12/17 at 00:30 TOMA CRAMER MD Jun 12, 2017 17:00
[2017-06-12] MEDS: LATANOPROST 0.005% 2.5 ML OPH BOTH EYES SCH (21:51)
[2017-06-13] VITALS (14 sets, daily range): BP systolic 113–152; BP diastolic 58–70; PULSE 62–90; RESP 16–23
[2017-06-13] MEDS: DEXTROSE 5%-0.45% NACL 1,000 ML IV SCH ×2 (03:19→16:09)
[2017-06-13 07:48] LABS: CALCIUM 7.7 mg/dl (8.4-10.2); CREATININE 1.02 mg/dl (0.61-1.24); MAGNESIUM 1.8 mg/dl (1.7-2.5); PHOSPHORUS 1.8 mg/dl (2.5-4.9)
--- NOTE | 2017-06-13 07:49 | CONS ---
Date/Time of Note Date/Time of Note DATE: 06/13/17 TIME: 07:47 Assessment/Plan Assessment/Plan Chief Complaint/Hosp Course Problems: Consultation Date/Type/Reason Admit Date/Time Jun 03, 2017 at 20:38 Initial Consult Date 06/03/17 Type of Consultation: Palliative care 24 HR Interval Summary Free Text/Dictation Patient's case was presented to bioethics committee meeting, please refer to dictated notes from Dr. Paras Van. Comfort measures will be instituted but paperwork has been completed and signed by myself and being sent to patient's conservator. 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 Patient is not a candidate for any aggressive intervention either surgical or chemotherapy. Exam/Review of Systems Vital Signs Vitals Vital Signs Date Time Temp Pulse Resp B/P Pulse Ox O2 Delivery O2 Flow Rate FiO2 06/13/17 06:30 98.2 85 18 125/63 98 06/11/17 06:00 Room Air 06/09/17 20:00 2.0 Intake and Output 06/12/17 06/12/17 06/13/17 15:00 23:00 07:00 Intake Total 900 ml 0 ml Output Total 600 ml 600 ml Balance 300 ml -600 ml Results Result Diagram: 06/12/17 0758 06/12/17 0758 Results 24 hrs Laboratory Tests Test 06/12/17 07:58 White Blood Count 12.7 #H Red Blood Count 3.57 L Hemoglobin 9.7 L Hematocrit 30.8 L Mean Corpuscular Volume 86.3 Mean Corpuscular Hemoglobin 27.2 L Mean Corpuscular Hemoglobin Concent 31.5 L Red Cell Distribution Width 19.9 H Platelet Count 220 Mean Platelet Volume 10.1 Neutrophils % 82.0 H Lymphocytes % 9.5 L Monocytes % 6.8 Eosinophils % 0.6 Basophils % 0.2 Nucleated Red Blood Cells % 0.0 Neutrophils # 10.4 H Lymphocytes # 1.2 Monocytes # 0.9 Eosinophils # 0.1 Basophils # 0.0 Nucleated Red Blood Cells # 0.0 Sodium Level 146 H Potassium Level 3.2 L Chloride Level 116 H Carbon Dioxide Level 23 Anion Gap 10 Blood Urea Nitrogen 16 Creatinine 1.14 Glucose Level 107 Calcium Level 8.0 L Phosphorus Level 2.4 L Magnesium Level 2.0 Medications Medications Current Medications Dextrose/Sodium Chloride (D5-1/2ns) 1,000 ml @ 50 mls/hr Q20H IV Last administered on 06/08/17 03:47; Admin Dose 125 MLS/HR; Start 06/03/17 at 22: 43; Status Future Hold Ondansetron HCl (Zofran Inj) 4 mg Q6H PRN IV NAUSEA AND/OR VOMITING Last administered on 06/06/17 07:57; Admin Dose 4 MG; Start 06/03/17 at 23:00 Fentanyl 50 mcg 50 mcg Q3H PRN IV PAIN Last administered on 06/10/17 23:24; Admin Dose 50 MCG; Start 06/05/17 at 11:30 Acetaminophen (Ofirmev 1000mg/ 100ml Iv) 100 ml @ 400 mls/hr Q6H PRN IVPB FEVER; Start 06/08/17 at 16:00 Latanoprost (Xalatan) 1 drop HS BOTH EYES Last administered on 06/12/17 21:51 ; Admin Dose 1 DROP; Start 06/09/17 at 21:00 Nitroglycerin (Nitroglycerin ([place])) 1 spray PRN PRN TL CHEST PAIN; Start at 17:00 Albuterol (Ventolin Hfa) 1 puff Q4 PRN INH SHORTNESS OF BREATH; Start at 16:00 Morphine Sulfate 3 mg 3 mg Q4H PRN IV PAIN LEVEL 6-10 Last administered on 05:49; Admin Dose 3 MG; Start 06/12/17 at 00:30 Dextrose/Sodium Chloride (D5-1/2ns) 1,000 ml @ 75 mls/hr [id number] IV Last administered on 06/13/17 03:19; Admin Dose 75 MLS/HR; Start 06/12/17 at 00:30 KIMI WOOD Jun 13, 2017 07:49
[2017-06-13 07:51] LABS: POTASSIUM 2.9 mmol/L (3.5-5.1)
[2017-06-13] MEDS ORDERED: MAGNESIUM SULFATE 2 GM/50 ML 50 ML IVPB ONE (10:30)
[2017-06-13] MEDS ORDERED: POTASSIUM CHLORIDE 250 ML IVPB SCH (10:30)
--- NOTE | 2017-06-13 10:50 | PN ---
DATE: 06/13/2017 SUBJECTIVE: The patient is stable. No events overnight. No fevers, chills, nausea, vomiting. OBJECTIVE: VITAL SIGNS: Blood pressure 122/62, temperature 98.6, pulse 87, respirations 22. HEENT: Head is normocephalic. NECK: Supple. HEART: Regular rate. LUNGS: Show diminished breath sounds at the base. ABDOMEN: Soft, nontender to palpation. No rebound or guarding. EXTREMITIES: Negative for clubbing, cyanosis, edema. DERMATOLOGIC: No rashes. MUSCULOSKELETAL: No joint effusions. NEUROLOGIC: No change in exam. MEDICATIONS: The patient's medications have been reviewed. LABORATORY DATA: Shows sodium 143, potassium 3.9, chloride 115, calcium 7.7, phosphorus 1.8. White count 7.7, hemoglobin 9.7, hematocrit 30.8, and platelet count is 220. ASSESSMENT AND PLAN: 1. Nonoliguric acute kidney injury with unknown baseline creatinine. Etiology secondary to hemodyn amics. Renal function is improved. Continue current treatment plan, supportive care, renally dose all meds. 2. Hypokalemia, hypomagnesemia, hypophosphatemia. We will continue to monitor and replete. 3. Mineral bone disorder. Monitor calcium and phosphorus levels. 4. Anemia. Monitor hemoglobin and hematocrit levels. 5. Sepsis, status post shock. Continue current antibiotic regimen. 6. 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 7. Coronary artery disease. Continue medical management. 8. Acute encephalopathy and dementia. 9. Atrial fibrillation. Continue current treatment plan. Dictated By: GISELA GUARDADO/ALLEY Conf#: [id number] DID#: [id number]
--- NOTE | 2017-06-13 11:00 | PN ---
Date/Time of Note Date/Time of Note DATE: 06/13/17 TIME: 10:58 Assessment/Plan VTE Prophylaxis VTE Prophylaxis Intervention: SCD's Lines/Catheters IV Catheter Type (from Nrsg): Central Line Central line still needed: No Urinary Cath still in place: Yes Reason Cath still needed: terminal illness/intractable pain Assessment/Plan Chief Complaint/Hosp Course Assessment: Sigmoid mass- identified on 2nd Ct scan Previously Suspected pneumatosis/ likely related to Ischemic colitis- no long identified Alzheimer's dementia Hypokalemia/ treated improved Arrhythmia- 24 beats of v-tach Plan: comfort measures only Pt seen in collaboration with Dr. Davis Subjective: Course reviewed with nursing staff Patient interviewed and examined All labs, imaging and other results reviewed Patient resting in bed comfortable, denies any pain Code status is DNR/DNI Exam: General: Confused Skin: No lesions, no stigmata chronic liver disease, no evidence of bleeding diathesis Lymphatic: No palpable lymphadenopathy HEENT: No lesions Cardiovascular: Heart: no cyanosis, clubbing or edemas. No pulsatile abdominal mass Respiratory: diminished Gastrointestinal and Liver: Abdomen: Soft, moderate diffuse tenderness more so in the lower abdomen bilaterally, moderately distended, no hernias, no masses, no organomegaly, no ascites, no guarding, no rebound tenderness, hypoactive bowel sounds. Extremities: No cyanosis, clubbing, or edema. Problems: Exam/Review of Systems Vital Signs Vitals Vital Signs Date Time Temp Pulse Resp B/P Pulse Ox O2 Delivery O2 Flow Rate FiO2 06/13/17 10:01 98.8 86 22 122/63 98 06/11/17 06:00 Room Air 06/09/17 20:00 2.0 Intake and Output 06/12/17 06/12/17 06/13/17 15:00 23:00 07:00 Intake Total 900 ml 0 ml Output Total 600 ml 600 ml Balance 300 ml -600 ml Exam Constitutional: alert, other (confused) Psych: confusion Head: atraumatic, normocephalic ENMT: nl external ears & nose Neck: supple Respiratory: clear to auscultation Cardiovascular: regular rate and rhythm Gastrointestinal: mass, soft, No ascites, No distended, No firm, No hepatomegaly, No rebound or guarding, No splenomegaly, No tender Musculoskeletal: muscle weakness Results Result Diagram: 06/12/17 0758 06/13/17 0614 Results 24 hrs Laboratory Tests Test 06/13/17 06:14 Sodium Level 143 Potassium Level 2.9 *L Chloride Level 115 H Carbon Dioxide Level 24 Anion Gap 7 L Blood Urea Nitrogen 11 Creatinine 1.02 Glucose Level 102 Calcium Level 7.7 L Phosphorus Level 1.8 L Magnesium Level 1.8 Medications Medications Current Medications Dextrose/Sodium Chloride (D5-1/2ns) 1,000 ml @ 50 mls/hr Q20H IV Last administered on 06/08/17 03:47; Admin Dose 125 MLS/HR; Start 06/03/17 at 22: 43; Status Future Hold Ondansetron HCl (Zofran Inj) 4 mg Q6H PRN IV NAUSEA AND/OR VOMITING Last administered on 06/06/17 07:57; Admin Dose 4 MG; Start 06/03/17 at 23:00 Fentanyl 50 mcg 50 mcg Q3H PRN IV PAIN Last administered on 06/10/17 23:24; Admin Dose 50 MCG; Start 06/05/17 at 11:30 Acetaminophen (Ofirmev 1000mg/ 100ml Iv) 100 ml @ 400 mls/hr Q6H PRN IVPB FEVER; Start 06/08/17 at 16:00 Latanoprost (Xalatan) 1 drop HS BOTH EYES Last administered on 06/12/17 21:51 ; Admin Dose 1 DROP; Start 06/09/17 at 21:00 Nitroglycerin (Nitroglycerin ([place])) 1 spray PRN PRN TL CHEST PAIN; Start at 17:00 Albuterol (Ventolin Hfa) 1 puff Q4 PRN INH SHORTNESS OF BREATH; Start at 16:00 Morphine Sulfate 3 mg 3 mg Q4H PRN IV PAIN LEVEL 6-10 Last administered on 05:49; Admin Dose 3 MG; Start 06/12/17 at 00:30 Dextrose/Sodium Chloride 1,000 ml @ 75 mls/hr [id number] IV Last administered on 06/13/17 03:19; Admin Dose 75 MLS/HR; Start 06/12/17 at 00:30 Potassium Chloride 250 ml @ 62.5 mls/hr ONCE IVPB ; Start 06/13/17 at 10:30; Stop 06/13/17 at 14:29 Magnesium Sulfate 50 ml @ 25 mls/hr ONCE ONCE IVPB ; Start 06/13/17 at 10:30; Stop 06/13/17 at 12:29 Potassium Phosphate/Sodium Chloride (K Phos (Meq)/NS) 254.5455 ml @ 63.636 m... ONCE ONCE IVPB ; Start 06/13/17 at 12:30; Stop 06/13/17 at 16:29 JOSS ESPINOSA Jun 13, 2017 11:00
--- NOTE | 2017-06-13 11:23 | PN ---
Date/Time of Note Date/Time of Note DATE: 06/13/17 TIME: 11:21 Assessment/Plan VTE Prophylaxis VTE Prophylaxis Intervention: other Assessment/Plan Chief Complaint/Hosp Course 1. Colonic mass in the sigmoid Patient has severe dementia and poor functional status, surgery does not feel the patient is a good candidate for a hemicolectomy Have discussed rectal stent placement with GI, risk of rectal stent placement exceeds benefit hence will not be done Bioethics meeting held because of patient's poor functional status and not being a candidate for surgery recommendation is for DNR status and palliation, order for hospice eval placed Palliative care on the case Patient removed NG tube last night, will not order for another one to be placed 2. Severe dementia Palliative care 3. NSVT-stable 4. SIRS-no evidence of infection DC'd Zosyn 5. Acute kidney injury secondary to hemodynamics Nephrology on the case Prophylaxis: None indicated Problems: Subjective 24 Hr Interval Summary Constitutional: disoriented Exam/Review of Systems Vital Signs Vitals Vital Signs Date Time Temp Pulse Resp B/P Pulse Ox O2 Delivery O2 Flow Rate FiO2 06/13/17 11:06 98.7 83 22 144/64 98 06/11/17 06:00 Room Air 06/09/17 20:00 2.0 Intake and Output 06/12/17 06/12/17 06/13/17 15:00 23:00 07:00 Intake Total 900 ml 0 ml Output Total 600 ml 600 ml Balance 300 ml -600 ml Exam Psych: confusion Respiratory: clear to auscultation Cardiovascular: regular rate and rhythm Gastrointestinal: soft, No distended Musculoskeletal: nl extremities to inspection Results Result Diagram: 06/12/17 0758 06/13/17 0614 Results 24 hrs Laboratory Tests Test 06/13/17 06:14 Sodium Level 143 Potassium Level 2.9 *L Chloride Level 115 H Carbon Dioxide Level 24 Anion Gap 7 L Blood Urea Nitrogen 11 Creatinine 1.02 Glucose Level 102 Calcium Level 7.7 L Phosphorus Level 1.8 L Magnesium Level 1.8 Medications Medications Current Medications Dextrose/Sodium Chloride (D5-1/2ns) 1,000 ml @ 50 mls/hr Q20H IV Last administered on 06/08/17t 03:47; Admin Dose 125 MLS/HR; Start 06/03/17 at 22: 43; Status Future Hold Ondansetron HCl (Zofran Inj) 4 mg Q6H PRN IV NAUSEA AND/OR VOMITING Last administered on 06/06/17 07:57; Admin Dose 4 MG; Start 06/03/17 at 23:00 Fentanyl 50 mcg 50 mcg Q3H PRN IV PAIN Last administered on 06/10/17 23:24; Admin Dose 50 MCG; Start 06/05/17 at 11:30 Acetaminophen (Ofirmev 1000mg/ 100ml Iv) 100 ml @ 400 mls/hr Q6H PRN IVPB FEVER; Start 06/08/17 at 16:00 Latanoprost (Xalatan) 1 drop HS BOTH EYES Last administered on 06/12/17 21:51 ; Admin Dose 1 DROP; Start 06/09/17 at 21:00 Nitroglycerin (Nitroglycerin ([place])) 1 spray PRN PRN TL CHEST PAIN; Start at 17:00 Albuterol (Ventolin Hfa) 1 puff Q4 PRN INH SHORTNESS OF BREATH; Start at 16:00 Morphine Sulfate 3 mg 3 mg Q4H PRN IV PAIN LEVEL 6-10 Last administered on 05:49; Admin Dose 3 MG; Start 06/12/17 at 00:30 Dextrose/Sodium Chloride 1,000 ml @ 75 mls/hr [id number] IV Last administered on 06/13/17 03:19; Admin Dose 75 MLS/HR; Start 06/12/17 at 00:30 Potassium Chloride 250 ml @ 62.5 mls/hr ONCE IVPB Last administered on 11:19; Admin Dose 62.5 MLS/HR; Start 06/13/17 at 10:30; Stop 06/13/17 at 14:29 Magnesium Sulfate 50 ml @ 25 mls/hr ONCE ONCE IVPB ; Start 06/13/17 at 10:30; Stop 06/13/17 at 12:29 Potassium Phosphate/Sodium Chloride (K Phos (Meq)/NS) 254.5455 ml @ 63.636 m... ONCE ONCE IVPB ; Start 06/13/17 at 12:30; Stop 06/13/17 at 16:29 PILAR DE JESUS Jun 13, 2017 11:23
[2017-06-13] MEDS ORDERED: POTASSIUM PHOSPHATE 20 MEQ in SOD CHLORIDE 0.9% 250 ML IVPB ONE (12:30)
--- NOTE | 2017-06-13 14:39 | PN ---
Date/Time of Note Date/Time of Note DATE: 06/13/17 TIME: 14:33 Assessment/Plan Lines/Catheters IV [facility]from [facility]): Central Line Assessment/Plan Chief Complaint/Hosp Course 1. Bowel obstruction 2/2 colon mass: CT: no ischemic bowel, circumferential colon mass; no bowel function as of yet: continue present treatment -IV fluids -colonoscopy pending- ?stent placement for symptomatic relief -bioethics committee held- awaiting conservator -cont ng for decompression -npo 2. Significant atherosclerosis and coronary artery disease -Patient high risk for any surgery -Cardiac optimization 3. Acute renal failure secondary to above: cr stable -Try to avoid nephrotoxic agents if possible 4. Coffee-ground emesis with possible upper GI bleed: h/h stable, no acute bleed from ng -PPI 5. Anemia with possible blood loss -As above 6. Dysrhythmia history -Optimize lytes -Rate control -Anticoagulation 7. Acute hypokalemia: normalized 8. Obesity with BMI 32 9. Alzheimer's dementia, schizophrenia (paranoid) -supportive 10. Hypoalbuminemia with hypocalcemia: nutritional +/- inflammation -optimize nutrition as able -as above 11. Left pl effusion vs. pna -supportive Thank you. Patient seen and examined in collaboration with Dr. Felton Zhang. Problems: Subjective 24 Hr Interval Summary Feels ok. Appears comfortable. No fevers, chills, sob, congested cough, cp, palpitations, mcfarland, dizziness, n/v/d/dysuria. NG pulled by patient-refusing to be reinserted Exam/Review of Systems Vital Signs Vitals Vital Signs Date Time Temp Pulse Resp B/P Pulse Ox O2 Delivery O2 Flow Rate FiO2 06/13/17 14:08 97.7 83 18 139/65 97 Room Air 06/09/17 20:00 2.0 Intake and Output 06/12/17 06/12/17 06/13/17 15:00 23:00 07:00 Intake Total 900 ml 0 ml Output Total 600 ml 600 ml Balance 300 ml -600 ml Exam Free Text/Dictation Constitutional: obese, awake Psych: confusion, anxious Head: atraumatic, normocephalic Eyes: PERRL, nl conjunctiva, No icteric ENMT: nl external ears & nose, No mucosa pink and moist Neck: jvd, non-tender, supple Respiratory: crackles, normal air movement, No congested cough, No labored breathing Cardiovascular: edema, sr Gastrointestinal: mod distended, min tender LLQ, No rebound or guarding, hypoactive bowel wounds Musculoskeletal: No joint tenderness, No nl extremities to inspection, No nl gait and stance Extremities: No calf tenderness, No cyanosis Neurological: No nl mental status, No nl strength Skin: No diaphoresis, No rash or lesions Lymph: nl lymph nodes, nontender Results Result Diagram: 06/12/17 0758 06/13/17 0614 BABS ROSE NP Jun 13, 2017 14:39
--- NOTE | 2017-06-13 20:43 | CONS ---
Date/Time of Note Date/Time of Note DATE: 06/13/17 TIME: 20:42 Assessment/Plan Assessment/Plan Chief Complaint/Hosp Course NSVT: Had 24 beats of monomorphic, nonsustained VT 06/07. EF is preserved though LAD territory wall motion abnormalities. Also had a mild NSTEMI and definitely has underlying CAD. Electrolyte disturbances were also contributing. He has not had recurrence since. NSTEMI: Trop up to 1.4 and downtrended on admission. Still likely type II in setting of septic shock and renal failure. Certainly has underlying CAD but he is not a cath candidate. No e/o CHF by exam. Sigmoid mass with bowel obstruction Acute renal failure: Resolved but now worse but stable Septic shock: now resolved and off pressors H/o CAD with unknown details Dementia Schizophrenia -comfort measures per palliative care and primary teams Problems: Consultation Date/Type/Reason Admit Date/Time Jun 03, 2017 at 20:38 Initial Consult Date 06/08/17 Type of Consultation: Cardiology 24 HR Interval Summary Free Text/Dictation Transitioned to comfort measures only. Detailed Summary Additional Comments Unable to obtain review of systems due to patient's mental status. Exam/Review of Systems Vital Signs Vitals Vital Signs Date Time Temp Pulse Resp B/P Pulse Ox O2 Delivery O2 Flow Rate FiO2 06/13/17 19:43 98.9 82 20 129/61 93 06/13/17 18:13 Room Air 06/09/17 20:00 2.0 Intake and Output 06/12/17 06/12/17 06/13/17 15:00 23:00 07:00 Intake Total 900 ml 0 ml Output Total 600 ml 600 ml Balance 300 ml -600 ml Exam Constitutional: alert, No oriented Psych: no complaints Head: atraumatic, normocephalic Neck: No jvd Respiratory: clear to auscultation, No wheezing Cardiovascular: regular rate and rhythm, systolic murmur (2/6 CORRINA), No edema Gastrointestinal: non-tender, soft Neurological: No nl mental status, No nl speech Results Result Diagram: 06/12/17 0758 06/13/17 0614 Results 24 hrs Laboratory Tests Test 06/13/17 06:14 Sodium Level 143 Potassium Level 2.9 *L Chloride Level 115 H Carbon Dioxide Level 24 Anion Gap 7 L Blood Urea Nitrogen 11 Creatinine 1.02 Glucose Level 102 Calcium Level 7.7 L Phosphorus Level 1.8 L Magnesium Level 1.8 Medications Medications Current Medications Dextrose/Sodium Chloride (D5-1/2ns) 1,000 ml @ 50 mls/hr Q20H IV Last administered on 06/08/17 03:47; Admin Dose 125 MLS/HR; Start 06/03/17 at 22: 43; Status Future Hold Ondansetron HCl (Zofran Inj) 4 mg Q6H PRN IV NAUSEA AND/OR VOMITING Last administered on 06/06/17 07:57; Admin Dose 4 MG; Start 06/03/17 at 23:00 Fentanyl 50 mcg 50 mcg Q3H PRN IV PAIN Last administered on 06/10/17 23:24; Admin Dose 50 MCG; Start 06/05/17 at 11:30 Acetaminophen (Ofirmev 1000mg/ 100ml Iv) 100 ml @ 400 mls/hr Q6H PRN IVPB FEVER; Start 06/08/17 at 16:00 Latanoprost (Xalatan) 1 drop HS BOTH EYES Last administered on 06/12/17 21:51 ; Admin Dose 1 DROP; Start 06/09/17 at 21:00 Nitroglycerin (Nitroglycerin ([place])) 1 spray PRN PRN TL CHEST PAIN; Start at 17:00 Albuterol (Ventolin Hfa) 1 puff Q4 PRN INH SHORTNESS OF BREATH; Start at 16:00 Morphine Sulfate 3 mg 3 mg Q4H PRN IV PAIN LEVEL 6-10 Last administered on 05:49; Admin Dose 3 MG; Start 06/12/17 at 00:30 Dextrose/Sodium Chloride (D5-1/2ns) 1,000 ml @ 75 mls/hr [id number] IV Last administered on 06/13/17 16:09; Admin Dose 75 MLS/HR; Start 06/12/17 at 00:30 TOMA CRAMER MD Jun 13, 2017 20:43
[2017-06-14] VITALS (10 sets, daily range): BP systolic 110–158; BP diastolic 57–79; RESP 18–20
[2017-06-14] MEDS: LATANOPROST 0.005% 2.5 ML OPH BOTH EYES SCH (01:57)
[2017-06-14 05:18] LABS: BASOPHILS % 0.2 % (0.0-2.0); EOSINOPHILS # 0.1 10^3/ul (0.0-0.5); EOSINOPHILS % 0.7 % (0.0-7.0); HEMATOCRIT 30.6 % (42.0-52.0); HEMOGLOBIN 9.8 g/dl (14.0-18.0); LYMPHOCYTES # 1.7 10^3/ul (0.8-2.9); LYMPHOCYTES % 18.9 % (15.0-51.0); MEAN CORPUSCULAR HEMOGLOBIN 27.7 pg (29.0-33.0); MEAN CORPUSCULAR VOLUME 86.4 fl (82.0-101.0); MEAN PLATELET VOLUME 10.5 fl (7.4-10.4); MONOCYTE # 0.8 10^3/ul (0.3-0.9); MONOCYTES % 8.3 % (0.0-11.0); NEUTROPHIL # 6.5 10^3/ul (1.6-7.5); NEUTROPHILS % 71.2 % (39.0-77.0); PLATELET COUNT 204 10^3/UL (140-415); RED BLOOD COUNT 3.54 10^6/ul (4.70-6.10); RED CELL DISTRIBUTION WIDTH 19.9 % (11.5-14.5); WHITE BLOOD COUNT 9.1 10^3/ul (4.8-10.8)
[2017-06-14 06:05] LABS: CALCIUM 7.6 mg/dl (8.4-10.2); CREATININE 0.97 mg/dl (0.61-1.24); MAGNESIUM 1.9 mg/dl (1.7-2.5); PHOSPHORUS 2.4 mg/dl (2.5-4.9)
[2017-06-14] MEDS: DEXTROSE 5%-0.45% NACL 1,000 ML IV SCH (06:55)
--- NOTE | 2017-06-14 08:44 | PN ---
DATE: 06/14/2017 SUBJECTIVE: The patient is stable. The patient had an episode of emesis overnight. No other event s noted. OBJECTIVE: VITAL SIGNS: Blood pressure is 110/56, temperature 98, pulse 81, respirations 19. HEENT: Head is normocephalic. NECK: Supple. HEART: Regular rate. LUNGS: Show diminished breath sounds at the base. ABDOMEN: Soft, flat. Mild tenderness to palpation. No rebound or guarding. EXTREMITIES: Negative for clubbing, cyanosis, or edema. DERMATOLOGIC: No rashes. MUSCULOSKELETAL: No joint effusions. NEUROLOGIC: No change in exam. MEDICATIONS: The patient's medications have been reviewed. LABORATORY DATA: Shows a white count 9.1, hemoglobin 9.8, hematocrit 30.6, platelet count is 204. Sodium 143, potassium 4.0, chloride 114, phosphorus is 2.4. ASSESSMENT AND PLAN: 1. Nonoliguric acute kidney injury with unknown baseline creatinine. Etiology is secondary to hemo dynamics. Renal function has improved. Continue current treatment plan, supportive care, renally d ose all medications. 2. Electrolyte abnormality. Will continue to monitor and replete. 3. Mineral bone disorder. Monitor calcium and phosphorus levels. The patient is currently hypopho sphatemic. Will replete with sodium phosphate. 4. Anemia. Monitor hemoglobin and hematocrit levels. 5. Sepsis, status post shock. Continue current antibiotic regimen. 6. 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 Continue to monitor. 7. Emesis. Etiology may be secondary to her sigmoid mass. Continue antiemetics and monitor. 8. Coronary artery disease. Continue current medical management. 9. Encephalopathy and dementia. 10. Atrial fibrillation, continue current treatment plan. Dictated By: GISELA GUARDADO/ALLEY Conf#: [id number] DID#: [id number]
[2017-06-14] MEDS ORDERED: POTASSIUM PHOSPHATE 20 MEQ in SOD CHLORIDE 0.9% 250 ML IVPB ONE (10:00)
--- NOTE | 2017-06-14 16:26 | PN ---
Date/Time of Note Date/Time of Note DATE: 06/14/17 TIME: 16:18 Assessment/Plan Lines/Catheters IV Catheter Type (from Nrs): Central Line Assessment/Plan Chief Complaint/Hosp Course 1. Bowel obstruction 2/2 colon mass: CT: no ischemic bowel, circumferential colon mass; no bowel function as of yet: continue present treatment -IV fluids -bioethics committee held- awaiting conservator for decision for palliative/ hospice -npo 2. Significant atherosclerosis and coronary artery disease -Patient high risk for any surgery -Cardiac optimization 3. Acute renal failure secondary to above: -Try to avoid nephrotoxic agents if possible 4. Coffee-ground emesis with possible upper GI bleed: h/h stable, no acute bleed from ng -PPI 5. Anemia with possible blood loss -As above 6. Dysrhythmia history -Optimize lytes -Rate control -Anticoagulation 7. Acute hypokalemia: normalized 8. Obesity with BMI 32 9. Alzheimer's dementia, schizophrenia (paranoid) -supportive 10. Hypoalbuminemia with hypocalcemia: nutritional +/- inflammation -optimize nutrition as able -as above 11. Left pl effusion vs. pna -supportive Thank you. Patient seen and examined in collaboration with Dr. Felton Zhang. Problems: Subjective 24 Hr Interval Summary Continues to be confused. Non verbal indicators of pain not present. continues on restraints. No fevers, chills, sob, congested cough, cp, palpitations, mcfarland, dizziness, n/v/d/dysuria. Pending conservator agreement for palliative/hospice care Exam/Review of Systems Vital Signs Vitals Vital Signs Date Time Temp Pulse Resp B/P Pulse Ox O2 Delivery O2 Flow Rate FiO2 06/14/17 12:00 97.2 69 18 111/61 98 06/13/17 18:13 Room Air Intake and Output 06/13/17 06/13/17 06/14/17 15:00 23:00 07:00 Intake Total 50 ml 1580 ml 0 ml Output Total 900 ml 650 ml Balance 50 ml 680 ml -650 ml Exam Free Text/Dictation Constitutional: obese, awake Psych: confusion, anxious Head: atraumatic, normocephalic Eyes: PERRL, nl conjunctiva, No icteric ENMT: nl external ears & nose, No mucosa pink and moist Neck: jvd, non-tender, supple Respiratory: crackles, normal air movement, No congested cough, No labored breathing Cardiovascular: edema, sr Gastrointestinal: mod distended, non tender, No rebound or guarding Musculoskeletal: No joint tenderness, No nl extremities to inspection, No nl gait and stance Extremities: No calf tenderness, No cyanosis Neurological: No nl mental status, No nl strength Skin: No diaphoresis, No rash or lesions Lymph: nl lymph nodes, nontender Results Result Diagram: 06/14/17 0453 06/14/17 0453 BABS ROSE NP Jun 14, 2017 16:26
--- NOTE | 2017-06-14 16:55 | CONS ---
Date/Time of Note Date/Time of Note DATE: 06/14/17 TIME: 16:54 Assessment/Plan Assessment/Plan Chief Complaint/Hosp Course NSVT: Had 24 beats of monomorphic, nonsustained VT 06/07. EF is preserved though LAD territory wall motion abnormalities. Also had a mild NSTEMI and definitely has underlying CAD. Electrolyte disturbances were also contributing. He has not had recurrence since. NSTEMI: Trop up to 1.4 and downtrended on admission. Still likely type II in setting of septic shock and renal failure. Certainly has underlying CAD but he is not a cath candidate. No e/o CHF by exam. Sigmoid mass with bowel obstruction Acute renal failure: Resolved but now worse but stable Septic shock: now resolved and off pressors H/o CAD with unknown details Dementia Schizophrenia -comfort measures per palliative care and primary teams Problems: Consultation Date/Type/Reason Admit Date/Time Jun 03, 2017 at 20:38 Initial Consult Date 06/08/17 Type of Consultation: Cardiology 24 HR Interval Summary Free Text/Dictation Confused, appears comfortable. Detailed Summary Additional Comments Unable to obtain review of systems due to patient's altered mental status. Exam/Review of Systems Vital Signs Vitals Vital Signs Date Time Temp Pulse Resp B/P Pulse Ox O2 Delivery O2 Flow Rate FiO2 06/14/17 16:00 98.0 70 18 129/57 97 06/13/17 18:13 Room Air Intake and Output 06/13/17 06/13/17 06/14/17 15:00 23:00 07:00 Intake Total 50 ml 1580 ml 0 ml Output Total 900 ml 650 ml Balance 50 ml 680 ml -650 ml Exam Constitutional: alert, No oriented Psych: no complaints Head: atraumatic, normocephalic Neck: No jvd Respiratory: clear to auscultation, No wheezing Cardiovascular: regular rate and rhythm, systolic murmur (2/6 CORRINA), No edema Gastrointestinal: non-tender, soft Neurological: No nl mental status, No nl speech Results Result Diagram: 06/14/17 0453 06/14/17 0453 Results 24 hrs Laboratory Tests Test 06/14/17 04:53 White Blood Count 9.1 # Red Blood Count 3.54 L Hemoglobin 9.8 L Hematocrit 30.6 L Mean Corpuscular Volume 86.4 Mean Corpuscular Hemoglobin 27.7 L Mean Corpuscular Hemoglobin Concent 32.0 Red Cell Distribution Width 19.9 H Platelet Count 204 Mean Platelet Volume 10.5 H Neutrophils % 71.2 Lymphocytes % 18.9 Monocytes % 8.3 Eosinophils % 0.7 Basophils % 0.2 Nucleated Red Blood Cells % 0.0 Neutrophils # 6.5 Lymphocytes # 1.7 Monocytes # 0.8 Eosinophils # 0.1 Basophils # 0.0 Nucleated Red Blood Cells # 0.0 Sodium Level 143 Potassium Level 4.0 Chloride Level 114 H Carbon Dioxide Level 22 Anion Gap 11 Blood Urea Nitrogen 12 Creatinine 0.97 Glucose Level 100 Calcium Level 7.6 L Phosphorus Level 2.4 L Magnesium Level 1.9 Medications Medications Current Medications Dextrose/Sodium Chloride (D5-1/2ns) 1,000 ml @ 50 mls/hr Q20H IV Last administered on 06/08/17 03:47; Admin Dose 125 MLS/HR; Start 06/03/17 at 22: 43; Status Future Hold Ondansetron HCl (Zofran Inj) 4 mg Q6H PRN IV NAUSEA AND/OR VOMITING Last administered on 06/06/17 07:57; Admin Dose 4 MG; Start 06/03/17 at 23:00 Fentanyl 50 mcg 50 mcg Q3H PRN IV PAIN Last administered on 06/10/17 23:24; Admin Dose 50 MCG; Start 06/05/17 at 11:30 Acetaminophen (Ofirmev 1000mg/ 100ml Iv) 100 ml @ 400 mls/hr Q6H PRN IVPB FEVER; Start 06/08/17 at 16:00 Latanoprost (Xalatan) 1 drop HS BOTH EYES Last administered on 06/14/17 01:57 ; Admin Dose 1 DROP; Start 06/09/17 at 21:00 Nitroglycerin (Nitroglycerin ([place])) 1 spray PRN PRN TL CHEST PAIN; Start at 17:00 Albuterol (Ventolin Hfa) 1 puff Q4 PRN INH SHORTNESS OF BREATH Last administered on 06/14/17 06:51; Admin Dose 1 PUFF; Start 06/09/17 at 16:00 Morphine Sulfate 3 mg 3 mg Q4H PRN IV PAIN LEVEL 6-10 Last administered on 05:49; Admin Dose 3 MG; Start 06/12/17 at 00:30 Dextrose/Sodium Chloride (D5-1/2ns) 1,000 ml @ 75 mls/hr [id number] IV Last administered on 06/14/17 06:55; Admin Dose 75 MLS/HR; Start 06/12/17 at 00:30 TOMA CRAMER MD Jun 14, 2017 16:55
--- NOTE | 2017-06-14 17:14 | DS ---
Date/Time of Note Date/Time of Note DATE: 06/14/17 TIME: 17:09 Discharge Summary Admission/Discharge Info Admit Date/Time Jun 03, 2017 at 20:38 Discharge Date/Time June 14, 2017 Discharge Diagnosis 1. 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 Severe dementia Palliative care 3. NSVT-stable 4. SIRS-no evidence of infection DC'd Zosyn 5. Acute kidney injury secondary to hemodynamics-resolved Patient Condition: Fair Hospital Course Patient is an 81-year-old male with a history of Alzheimer's dementia, CAD, hypertension, gastritis, psychosis and dyslipidemia who was sent from a convalescent home for attention and coffee-ground emesis. On arrival patient was thought to be in septic shock was admitted to ICU. She was found to have a mass in the sigmoid colon via CT, surgery did consult and did not feel the patient is a candidate for surgical intervention. GI also consulted and was felt that there is no indication for biopsy of the mass if surgery is not warranted. Patient has severe dementia and is conserved, bioethics meeting was held with regard to the plan for this patient, it was decided that palliation and pain control is appropriate for goals of care. Hospice did consult and did speak to conservator and plan is for patient to go to hospice when he arrives at the nursing facility. On day of discharge patient vitals, labs and physical exam stable. Home Meds Reported Medications Travoprost* (Travatan*) 1 Drop Drops, 1 DROP BOTH EYES HS 07/29/13 Risperidone* (Risperidone*) 0.25 Mg Tablet, 0.25 MG PO HS 07/29/13 Atorvastatin Calcium (Atorvastatin Calcium) 10 Mg Tab, MG HS 07/29/13 Albuterol Sulfate* (Proair HFA*) 8.5 Gm Hfa.aer.ad, 8.5 GM IH Q4 Y 07/29/13 Psyllium* (Metamucil*) 1 Pkt Susp, 1 PKT PO BID 07/29/13 [Mom] No Conflict Check, 30 ML Y 07/29/13 Folic Acid* (Folic Acid*) 1 Mg Tablet, 1 MG PO 07/29/13 Donepezil* (Aricept* ODT) 10 Mg/Udtablet Tab.rapdis, 10 MG PO HS 07/29/13 Docusate Sodium* (Colace*) 100 Mg Capsule, 100 MG PO BID 07/29/13 Memantine* (Namenda*) 10 Mg Tablet, 10 MG PO BID 07/29/13 Nitroglycerin* (Nitrolingual* Swiss) 4.1 Gm Swiss, 0.4 MG TL Y 07/29/13 Acetaminophen (Tylenol 8 Hour) 650 Mg Tablet.sa, 650 MG PO Y 11/07/11 Aspirin (Aspirin) 81 Mg Tablet, 81 MG PO DAILY 11/07/11 Primary Care Provider Dallin Smith MD Time spent on discharge: > 30 minutes PILAR DE JESUS Jun 14, 2017 17:14
[2017-06-14] MEDS: DOCUSATE SODIUM 100 MG CAP PO ONE ×2 (18:51→18:52)
[2017-06-14] MEDS ORDERED: DOCUSATE SODIUM 100 MG CAP PO SCH (21:00)
--- NOTE | 2017-06-18 08:13 | PN ---
DATE: 06/09/2017 EXTREMITIES: Positive edema. DERMATOLOGIC: No rash is nonspecific intraventricular. LABORATORY DATA: White count 8.5 and now. At this point, the plan of 1.33. Repeat blood stable. The patient is status post peripheral pulses stable in the last 48 hours. Would continue current tr eatment plan, supportive care, renally dose all medications, avoid nephrotoxins. 1. Phosphorus calcium and phosphorus levels. 2. Possible cause. MEDICATIONS: The patient is currently on empiric antibiotics, IV fluids at this 0.65, phosphorus bi nding oncoplastic: 1. Encephalopathy, multifactorial etiology, possibly at base. Dictated By: GISELA RODRIGEUZ DO NR/NTS Conf#: [id number] DID#: [id number]
== END 2017-06-14 21:00 | DRG 871 ==
LOC: E/R 14:51 → ICU 20:38 → TEL 06-11 21:04 → MS1 06-13 06:15
PROVIDERS: ADMIT Internal Medicine; ATTEND Internal Medicine
PROC: 05HM33Z Insertion of Infusion Device into Right Internal Jugular Vein, Percutaneous Approach (ICD-10-PCS; principal; 2017-06-03)
PROC: B543ZZA Ultrasonography of Right Jugular Veins, Guidance (ICD-10-PCS; 2017-06-03)
DX: A41.9 Sepsis, unspecified organism (principal); R65.21 Severe sepsis with septic shock; N17.0 Acute kidney failure with tubular necrosis; I21.4 Non-ST elevation (NSTEMI) myocardial infarction; G93.40 Encephalopathy, unspecified; K55.9 Vascular disorder of intestine, unspecified; K92.0 Hematemesis; E87.0 Hyperosmolality and hypernatremia; E44.0 Moderate protein-calorie malnutrition; I48.91 Unspecified atrial fibrillation; C18.7 Malignant neoplasm of sigmoid colon; F20.0 Paranoid schizophrenia; C19 Malignant neoplasm of rectosigmoid junction; I12.9 Hypertensive chronic kidney disease with stage 1 through stage 4 chronic kidney disease, or unspecified chronic kidney disease; N18.9 Chronic kidney disease, unspecified; E87.6 Hypokalemia; G30.9 Alzheimer's disease, unspecified; F02.80 Dementia in other diseases classified elsewhere, unspecified severity, without behavioral disturbance, psychotic disturbance, mood disturbance, and anxiety; Z68.31 Body mass index [BMI] 31.0-31.9, adult; Z66 Do not resuscitate; Z78.1 Physical restraint status; K63.89 Other specified diseases of intestine; D64.9 Anemia, unspecified
CPT/HCPCS: 36415; 36600; 71010; 74000; 74176; 76775; 80048; 80053; 81001; 82436; 82550; 82553; 82803; 83605; 83690; 83735; 84100; 84133; 84300; 84484; 85025; 85610; 85730; 86850; 86900; 86901; 87040; 87081; 87086; 93005; 93306; 96374; 96375; C9113; J0282; J1644; J1650; J2270; J2370; J2405; J2543; J3010; J3370; J3475; J3480; J7030; J7040; J7042; J7050; J7060; P9612; Q9967